=== PATIENT | male | born 1940 | race African-American/Black ===

== ENCOUNTER 2017-03-01 06:30 | Inpatient (IN) | payer OTHER ==
[2017-03-01] VITALS (7 sets, daily range): BP systolic 114–135; BP diastolic 59–76
[~2017-03-01] VITALS: Ht 188 cm; Wt 104.3 kg
[~2017-03-01 06:30] MED LIST: AMLODIPINE BESY10 MG ORAL; AMOXICILLIN500 MG; ASPIRIN81 MG ORAL; ATENOLOL25 MG ORAL; ATORVASTATIN CA10 MG ORAL; FINASTERIDE5 MG; FLONASE1 SPRAYS NASAL; LATANOPROST2.5 ML OP; LISINOPRIL40 MG ORAL; SIMVASTATIN20 MG; TAMSULOSIN HCL0.4 MG
[2017-03-01 07:08] LABS: EOSINOPHILS % (AUTO) 2.8 % (0.0-3.0); LYMPHOCYTES % (AUTO) 36.7 % (20.0-45.0); MEAN CORPUSCULAR HEMOGLOBIN 31.7 PG (27.0-31.0); MEAN CORPUSCULAR HGB CONC 34.3 G/DL (32.0-36.0); MEAN CORPUSCULAR VOLUME 93 FL (80-99); MEAN PLATELET VOLUME 5.1 FL (6.5-10.1); MONOCYTES % (AUTO) 10.9 % (1.0-10.0); NEUTROPHILS % (AUTO) 47.6 % (45.0-75.0); PLATELET COUNT 164 K/UL (150-450); RED BLOOD COUNT 2.75 M/UL (4.70-6.10); RED CELL DISTRIBUTION WIDTH 12.8 % (11.6-14.8); WHITE BLOOD COUNT 3.6 K/UL (4.8-10.8)
[2017-03-01 07:22] LABS: ALANINE AMINOTRANSFERASE 15 U/L (3-41); ALBUMIN/GLOBULIN RATIO 1.4 (1.0-2.7); ANION GAP 10 (5-15); ASPARTATE AMINO TRANSFERASE 52 U/L (5-40); CALCIUM 8.5 mg/dL (8.6-10.2); CARBON DIOXIDE 28 mEQ/L (20-30); CHLORIDE 83 mEQ/L (98-107); CREATININE 1.9 mg/dL (0.7-1.2); HEMOLYSIS 3; LIPASE 47 U/L (< 60); POTASSIUM 5.1 mEQ/L (3.4-4.9); SODIUM 121 mEQ/L (135-145)
[2017-03-01 07:23] LABS: TROPONIN I < 0.30 ng/mL (<=0.30)
[2017-03-01 07:32] LABS: CKMB 7.7 ng/mL (< 6.7)
--- NOTE | 2017-03-01 07:58 | Emergency Room Report ---
History of Present Illness General Chief Complaint: General Complaint Source: Patient Present Illness HPI The patient is a 76-year-old male who presented after increased palpitations. Patient reported having intermittent jumping sensation to the right side of his chest. Patient stated that he had recently been performing increased exercise. Patient had prior history of anemia. He denies any shortness of breath or chest pain at this time. A gradual onset of symptoms were the past 2-3 days. Allergies: Coded Allergies: No Known Allergies (Verified Allergy, Unknown, 01/16/10) Patient History Past Medical History: see triage record Reviewed Nursing Documentation: PMH: Agreed, PSxH: Agreed Nursing Documentation-PMH Hx Hypertension: Yes Review of Systems All Other Systems: negative except mentioned in HPI Physical Exam Vital Signs Date Time Temp Pulse Resp B/P Pulse Ox O2 Delivery O2 Flow Rate FiO2 03/01/17 06:33 97.7 64 16 147/67 100 Room Air Sp02 EP Interpretation: reviewed, normal General Appearance: normal inspection, well appearing, no apparent distress, alert, GCS 15, non-toxic Head: atraumatic ENT: normal ENT inspection, hearing grossly normal, normal voice Neck: normal inspection, full range of motion, supple, no bony tend Respiratory: normal inspection, lungs clear, normal breath sounds, no respiratory distress, no retraction, no wheezing Cardiovascular #1: regular rate, rhythm, no edema Gastrointestinal: normal inspection, normal bowel sounds, non tender, soft, no guarding, no hernia Genitourinary: no CVA tenderness Musculoskeletal: normal inspection, back normal, normal range of motion Neurologic: normal inspection, alert, oriented x3, responsive, steak sauce maker III-XII nml as tested, speech normal Psychiatric: normal inspection, judgement/insight normal, mood/affect normal Skin: normal inspection, normal color, no rash Medical Decision Making Diagnostic Impression: Primary Impression: Hyponatremia Additional Impressions: Hyperkalemia Anemia ER Course Patient presented for palpitations. The differential diagnosis included was not limited to arrhythmia, thyroid storm, sepsis, anemia, myocardial infarction , alcohol withdrawal, stimulant abuse, caffeine overdose among others. Because of complexity of patient's case laboratory testing and imaging studies were ordered. Patient was placed on a residential care facility manager. EKG interpreted by me showed normal sinus rhythm with a rate of [address] or T wave changes. a right bundle-branch block was present. The patient started on IV fluids. Chest x- ray one view interpreted by me showed elevation of the left hemidiaphragm with normal cardiac size normal mediastinum. EKG Diagnostic Results Rate: normal Rhythm: NSR ST Segments: other - rbbb ASA given to the pt in ED: No Rhythm Strip Diag. Results EP Interpretation: yes Rhythm: NSR, no PVC's, no ectopy Chest X-Ray Diagnostic Results Chest X-Ray Ordered: Yes # of Views/Limited/Complete: 1 View Interpretation: no consolidation, no effusion, no pneumothorax, no acute cardiopulmonary disease, other - left hemidiaphragm elevation Indication: Other - palpitations Impression: No acute disease Date Electronically Signed: Mar 01, 2017 Time Electronically Signed: 07:57 Interpreting ER Physician: Mauricio Last Vital Signs Date Time Temp Pulse Resp B/P Pulse Ox O2 Delivery O2 Flow Rate FiO2 03/01/17 07:15 98.0 56 17 116/66 100 Room Air Status: unchanged Disposition: ADMITTED INPATIENT Condition: Serious Referrals: NON PHYSICIAN (PCP) Garret Martínez Mar 01, 2017 07:58
[2017-03-01] MEDS ORDERED: FOLIC ACID1 MG ORAL (08:10)
[2017-03-01] MEDS ORDERED: SIMVASTATIN20 MG ORAL (08:10)
[2017-03-01] MEDS ORDERED: HIGH POTENCY I134 MG PO (08:10)
[2017-03-01] MEDS ORDERED: TAMSULOSIN HCL0.4 MG ORAL (08:10)
[2017-03-01] MEDS ORDERED: NEPHROVITE1 TAB ORAL (08:10)
[2017-03-01] MEDS ORDERED: LATANOPROST2.5 ML BOTH EYES (08:10)
--- NOTE | 2017-03-01 08:44 | Diagnostic Imaging Report ---
Indication: Shortness of breath Technique: XRAY CHEST 1 V Comparison: 03/12/15 Findings: Cardiomediastinal silhouette is stable. There is elevation of the left hemidiaphragm. There is no consolidation or pleural effusion. Osseous structures are stable. Impression: No acute cardiopulmonary disease. Grossly stable elevation of the left hemidiaphragm.
[2017-03-01] MEDS ORDERED: Ketorolac 30mg Inj IV PRN (09:45)
[2017-03-01] MEDS ORDERED: Enalaprilat 2.5mg/2ml Inj IV PRN (09:45)
[2017-03-01] MEDS ORDERED: Morphine Sulfate 2mg/ml Inj IVP PRN (09:45)
[2017-03-01] MEDS ORDERED: Miralax 17gm pkt ORAL PRN (09:45)
[2017-03-01] MEDS ORDERED: Diltiazem 25mg/5ml IV PRN (09:45)
[2017-03-01] MEDS ORDERED: DuoNeb 0.5-3(2.5)mg/3ml neb HHN PRN (09:45)
[2017-03-01] MEDS ORDERED: Nitroglycerin Subl 0.4mg tab (Bottle Of 25) SL PRN (09:45)
[2017-03-01] MEDS: Tamsulosin 0.4mg cap ORAL SCH (10:52)
[2017-03-01] MEDS: Aspirin Baby 81mg ORAL SCH (10:52)
--- NOTE | 2017-03-01 12:39 | History and Physical ---
History of Present Illness General Date patient seen: Mar 01, 2017 Time patient seen: 12:00 Reason for Hospitalization: General Complaint Present Illness HPI 76-year-old male presented after increased palpitations described as intermittent jumping sensation to the right side of his chest. Patient reported these sensations after or during exercise in the gym, not sure if "used more weight that he could handle" Onset of symptoms, gradual over 2-3 days, last exercise Friday this week able to walk few blocks without any SOB, no exertional dyspnea Patient had prior history of anemia. He denies any shortness of breath or chest pain workup in ED revealed: negative troponin, CK -860, ECG NSR no acute ischemic changes creat-1.9, Na -121, K-5.1 D dimer-342 CXR no acute cardiopulmonary disease Allergies: Coded Allergies: No Known Allergies (Verified Allergy, Unknown, 01/16/10) Medication History Scheduled Amlodipine Besylate* (Amlodipine Besylate*), ORAL DAILY, (Reported) Aspirin* (Aspirin*), 81 MG ORAL DAILY Atenolol* (Tenormin*), ORAL DAILY, (Reported) Atorvastatin Calcium* (Lipitor*), ORAL BEDTIME, (Reported) Ferrous Sulfate (High Potency Iron), 325 MG PO DAILY, (Reported) Fluticasone Propionate (Fluticasone Propionate), 2 SPRAYS NASAL BID, (Reported) Folic Acid* (Folic Acid*), 1 MG ORAL DAILY, (Reported) Latanoprost* (Xalatan*), 1 DRP OP BEDTIME, (Reported) Latanoprost* (Xalatan*), 1 DROP BOTH EYES BEDTIME, (Reported) Lisinopril* (Lisinopril*), ORAL DAILY, (Reported) Simvastatin (Zocor), 20 MG ORAL BEDTIME, (Reported) Tamsulosin Hcl (Tamsulosin Hcl*), 0.4 MG ORAL BEDTIME, (Reported) Vitamin B Cmplx/Vit C/Folic AC (Nephro-Todd Tablet), 1 TAB ORAL DAILY, (Reported ) Patient History History Provided By: Patient Healthcare decision maker Resuscitation status Full Code Advanced Directive on File Past Medical/Surgical History Past Medical/Surgical History: (1) Hypercholesteremia (2) BPH (benign prostatic hyperplasia) (3) HTN (hypertension) (4) Anemia (5) TIA (transient ischemic attack) Review of Systems Constitutional: Reports: no symptoms Eye: Reports: no symptoms ENT: Reports: no symptoms Respiratory: Reports: no symptoms Cardiovascular: Reports: see HPI Gastrointestinal: Reports: no symptoms Genitourinary: Reports: other - BPH Musculoskeletal: Reports: no symptoms Skin: Reports: no symptoms Psychiatric: Reports: no symptoms Neurological: Reports: no symptoms Endocrine: Reports: no symptoms Hematologic/Lymphatic: Reports: anemia Physical Exam General Appearance: WD/WN, no apparent distress, alert - A/A/O x 3 AA male Lines, tubes and drains: peripheral HEENT: normocephalic, atraumatic, anicteric, mucous membranes moist, PERRL Neck: non-tender, normal alignment, supple Respiratory/Chest: chest wall non-tender, lungs clear, no respiratory distress , respiratory distress Cardiovascular/Chest: normal rate, regular rhythm, no JVD Abdomen: normal bowel sounds, non tender, soft Genitourinary/Rectal: normal prostate exam Extremities: non-tender, no calf tenderness, normal capillary refill, non- pitting Skin Exam: normal pigmentation, warm/dry, cyanotic Neurologic: 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 normal, no motor/sensory deficits, alert, oriented x 3, responsive Musculoskeletal: normal muscle bulk Last 24 Hour Vital Signs Date Time Temp Pulse Resp B/P Pulse Ox O2 Delivery O2 Flow Rate FiO2 03/01/17 11:26 97.6 53 16 118/70 100 Room Air 03/01/17 10:35 97.8 58 16 135/70 100 Room Air 03/01/17 09:58 98.0 56 15 125/74 100 Room Air 03/01/17 09:30 98.0 55 14 122/67 100 Room Air 03/01/17 07:15 98.0 56 17 116/66 100 Room Air 03/01/17 07:15 56 17 Room Air 03/01/17 07:06 55 16 114/59 100 Room Air 03/01/17 06:33 97.7 64 16 147/67 100 Room Air Laboratory Tests Test 03/01/17 06:50 White Blood Count 3.6 K/UL (4.8-10.8) L Red Blood Count 2.75 M/UL (4.70-6.10) L Hemoglobin 8.7 G/DL (14.2-18.0) L Hematocrit 25.4 % (42.0-52.0) L Mean Corpuscular Volume 93 FL (80-99) Mean Corpuscular Hemoglobin 31.7 PG (27.0-31.0) H Mean Corpuscular Hemoglobin Concent 34.3 G/DL (32.0-36.0) Red Cell Distribution Width 12.8 % (11.6-14.8) Platelet Count 164 K/UL (150-450) Mean Platelet Volume 5.1 FL (6.5-10.1) L Neutrophils (%) (Auto) 47.6 % (45.0-75.0) Lymphocytes (%) (Auto) 36.7 % (20.0-45.0) Monocytes (%) (Auto) 10.9 % (1.0-10.0) H Eosinophils (%) (Auto) 2.8 % (0.0-3.0) Basophils (%) (Auto) 2.0 % (0.0-2.0) D-Dimer 342 ng/mL (<500) Sodium Level 121 mEQ/L (135-145) L Potassium Level 5.1 mEQ/L (3.4-4.9) H Chloride Level 83 mEQ/L (98-107) L Carbon Dioxide Level 28 mEQ/L (20-30) Anion Gap 10 (5-15) Blood Urea Nitrogen 15 mg/dL (7-23) Creatinine 1.9 mg/dL (0.7-1.2) H Estimat Glomerular Filtration Rate mL/min (>60) Glucose Level 95 mg/dL (74-106) Calcium Level 8.5 mg/dL (8.6-10.2) L Total Bilirubin 0.6 mg/dL (0.0-1.2) Aspartate Amino Transf (AST/SGOT) 52 U/L (5-40) H Alanine Aminotransferase (ALT/SGPT) 15 U/L (3-41) Alkaline Phosphatase 35 U/L (40-129) L Total Creatine Kinase 860 U/L (38-174) H Creatine Kinase MB 7.7 ng/mL (< 6.7) H Creatine Kinase MB Relative Index 0.8 Troponin I < 0.30 ng/mL (<=0.30) Total Protein 7.0 g/dL (6.6-8.7) Albumin 4.1 g/dL (3.5-5.2) Globulin 2.9 g/dL Albumin/Globulin Ratio 1.4 (1.0-2.7) Lipase 47 U/L (< 60) Height (Feet): 6 Height (Inches): 2.00 Weight (Pounds): 230 Medications Current Medications Medications (Trade) Dose Ordered Sig/Jose Route PRN Reason Start Time Stop Time Status Last Admin Dose Admin Acetaminophen (Tylenol) 650 mg Q4H PRN ORAL FEVER 03/01/17 09:45 03/31/17 09:44 Albuterol/ Ipratropium (DuoNeb 0.5-3(2.5)mg/3ml) 3 ml Q4H PRN HHN Shortness of Breath 03/01/17 09:45 03/06/17 09:44 Aspirin (ASA) 162 mg DAILY ORAL 03/01/17 11:00 03/31/17 10:59 Atorvastatin Calcium (Lipitor) 10 mg BEDTIME ORAL 03/01/17 21:00 03/31/17 20:59 Diltiazem HCl (Cardizem) 10 mg Q1H PRN IV HR >120 03/01/17 09:45 03/31/17 09:44 Enalaprilat (Vasotec) 2.5 mg Q6H PRN IV sbp more than 160 03/01/17 09:45 03/31/17 09:44 Heparin Sodium (Porcine) (Heparin 5000 units/ml) 5,000 units EVERY 12 HOURS SUBQ 03/01/17 21:00 03/31/17 20:59 Morphine Sulfate (Morphine Sulfate) 2 mg Q4H PRN IVP severe Pain (Pain Scale 7-10) 03/01/17 09:45 03/08/17 09:44 Nitroglycerin (Ntg) 0.4 mg Q5MIN X 3 DOSES PRN SL Prn Chest Pain 03/01/17 09:45 03/31/17 09:44 Ondansetron HCl (Zofran) 4 mg Q6H PRN IVP Nausea & Vomiting 03/01/17 09:45 03/31/17 09:44 Pantoprazole (Protonix) 40 mg DAILY ORAL 03/01/17 11:00 03/31/17 10:59 03/01/17 11:04 Polyethylene Glycol (Miralax) 17 gm DAILYPRN PRN ORAL Constipation 03/01/17 09:45 03/31/17 09:44 Tamsulosin HCl (Flomax) 0.4 mg BEDTIME ORAL 03/01/17 21:00 03/31/17 20:59 Temazepam (Restoril) 15 mg HSPRN PRN ORAL Insomnia 03/01/17 09:45 03/08/17 09:44 Assessment/Plan Assessment/Plan ASSESSMENT palpitations chest pain r/o ACS acute hyponatremia acute renal failure mild rhabdomyolysis anemia BPH Hx of HTN PLAN OF CARE tele serial troponin to r/o acute [facility] cardio eval ECHO continue ASA and statin check lipid panel, TSH pain management with nitrites and Morphine prn DVT, GI prophayxlis hypoNa workup IVF with Na , possibly depletional monitor renal parameters, lytes renal US ARF could be due to dehydration, mild rhabdo vs CKD trend CK anemia workup , stool OB, check CEA monitor HH transfuse prn continue Flomax case discussed and evaluated by supervising physician Jorje (Rip),Mavis FARR Mar 01, 2017 12:39
[2017-03-01 14:44] LABS: APPEARANCE,URINE CLEAR; KETONES,URINE NEGATIVE (NEGATIVE); LEUKOCYTE ESTERASE ,URINE 1+ (NEGATIVE); NITRITE,URINE NEGATIVE (NEGATIVE); PH,URINE 7 (4.5-8.0); PROTEIN,URINE NEGATIVE (NEGATIVE); UROBILINOGEN,URINE NORMAL MG/DL (0.0-1.0)
[2017-03-01 14:58] LABS: RBC,URINE 0-2 /HPF (0 - 0); WBC,URINE 0 /HPF (0 - 0)
[2017-03-01 15:44] LABS: TROPONIN I < 0.30 ng/mL (<=0.30)
[2017-03-01 15:45] LABS: ALANINE AMINOTRANSFERASE 15 U/L (3-41); ALBUMIN/GLOBULIN RATIO 1.6 (1.0-2.7); ANION GAP 10 (5-15); ASPARTATE AMINO TRANSFERASE 52 U/L (5-40); CALCIUM 8.6 mg/dL (8.6-10.2); CARBON DIOXIDE 29 mEQ/L (20-30); CHLORIDE 83 mEQ/L (98-107); CREATININE 1.7 mg/dL (0.7-1.2); HEMOLYSIS 1; MAGNESIUM 1.9 mg/dL (1.7-2.5); PHOSPHORUS 3.1 mg/dL (2.5-4.8); SODIUM 122 mEQ/L (135-145); TOTAL PROTEIN 6.6 g/dL (6.6-8.7); URIC ACID 6.1 mg/dL (3.0-7.5)
--- NOTE | 2017-03-01 16:47 | Consultation ---
Consult Note Consult Note The patient is a 76-year-old male who presented after increased palpitations. Patient reported having intermittent jumping sensation to the right side of his chest. Patient stated that he had recently been performing increased exercise. Patient had prior history of anemia. He denies any shortness of breath or chest pain at this time. A gradual onset of symptoms were the past 2-3 days. Assessment/Plan HypoNatremia HyperKalemia Renal failure , Cr 1.9 BPH Anemia h/o TIA HTN DJD Plan: Saline infusion- Anemia barrios monitor renal parameters- urine studies DENISE ORTIZ Mar 01, 2017 16:47
[2017-03-01] MEDS ORDERED: NS 250 ML IVPB ONE (17:00)
[2017-03-01 17:06] LABS: APPEARANCE,URINE CLEAR; KETONES,URINE NEGATIVE (NEGATIVE); LEUKOCYTE ESTERASE ,URINE NEGATIVE (NEGATIVE); NITRITE,URINE NEGATIVE (NEGATIVE); PH,URINE 7 (4.5-8.0); PROTEIN,URINE NEGATIVE (NEGATIVE); UROBILINOGEN,URINE NORMAL MG/DL (0.0-1.0)
[2017-03-01 17:34] LABS: RBC,URINE 0 /HPF (0 - 0); WBC,URINE 0 /HPF (0 - 0)
[2017-03-01] MEDS: Heparin 5000 units/ml inj SUBQ SCH (20:44)
--- NOTE | 2017-03-01 21:33 | Consultation ---
Consult Note Consult Note Cardiology for Dr. Dick full consult dictated #[id number] VIBHA CASILLAS Mar 01, 2017 21:33
--- NOTE | 2017-03-01 23:15 | Consultation ---
DATE OF CONSULTATION: CARDIOLOGY CONSULT REQUESTING PHYSICIAN: Ishaan Andujar M.D. This is being done as coverage for Dr. Dick. REASON FOR CONSULT: Chest pain. HISTORY OF PRESENT ILLNESS: The patient is a 76-year-old man with a history of hypertension, hyperlipidemia, and anemia, who presents with a two to three day history of right-sided chest pain, which he describes as palpitations or "jumping sensation," which occurred over the past two or three days after he had exercised at the gym including arm exercises earlier this week. He denies shortness of breath, dizziness, lightheadedness, or syncope in the emergency room. His initial troponin was negative and EKG showed no acute ischemic change. He was noted to be in renal failure with a creatinine of 1.9 potassium of 5.1, sodium 121, and anemic with a hemoglobin of 8.7. He was admitted for further treatment. MEDICATIONS: Currently atorvastatin 10 mg at bedtime, Flomax 0.4 mg at bedtime, subcutaneous heparin 5000 units q.12. p.r.n., aspirin 162 mg daily, albuterol and ipratropium nebulizer every 4 hours p.r.n., nitroglycerin sublingual p.r.n., Tylenol p.r.n., and Restoril 15 mg at bedtime as needed. ALLERGIES: No known drug allergies. PAST MEDICAL HISTORY: As noted above, history of anemia. The patient reports having been diagnosed over the past two to three years having a negative gastrointestinal workup. History of BPH and history of hypertension and hyperlipidemia. SOCIAL HISTORY: No tobacco or alcohol abuse. PHYSICAL EXAMINATION: VITAL SIGNS: Blood pressure is 130/76, pulse 58, regular, respirations 18, and afebrile. GENERAL: Alert, well-developed male, in no acute distress. HEENT: Normocephalic and atraumatic. Pupils are equal, round, and reactive to light. Sclerae anicteric. Oral mucosa moist. NECK: Supple. There is no jugular venous distention. No carotid bruits. LUNGS: Clear to auscultation bilaterally. CHEST: No chest wall tenderness. HEART: Regular S1 and S2. No murmurs, rubs, S3, or S4. ABDOMEN: Soft, nontender. No palpable mass. EXTREMITIES: No cyanosis, clubbing, or edema. A 1+ dorsalis pedis pulses bilaterally. EKG shows sinus rhythm, rate of 60 beats per minute, right bundle branch block and axis 100 degrees. Sinus rhythm rate 60 beats per minute, right bundle branch block, and right axis deviation 100 degrees. LABORATORY DATA: Hemoglobin 8.7, white blood count 3600, and platelets 164,000. Potassium 5.0, sodium 122, BUN 13, and creatinine 1.7. Troponin less than 0.3. CK 832. TSH 2.5 and free T4 0.72. ASSESSMENT AND RECOMMENDATIONS: The patient is a 76-year-old man with a history of hypertension and anemia, who was admitted with right-sided "chest jumping and palpitations" over the past few days, which occurred after exercise. He is noted to have multiple metabolic abnormalities including elevated creatinine, low hemoglobin, hyponatremia, and hyperkalemia. His chest pain does not appear to be due to angina based on the EKG and troponin level, it appears of more musculoskeletal etiology. He has undergone an echo as well, which showed diastolic dysfunction, but normal systolic function with ejection fraction 55% to 60% and no significant valve lesions. At this point, I would not favor any further cardiac workup. Evaluation of his metabolic abnormalities, hyponatremia, hyperkalemia, and renal insufficiency will be as per nephrology. Anemia evaluation will also be undertaken. Betsy Rosa M.D. DR: NEL JOB#: [id number] CC:
[2017-03-02] VITALS (7 sets, daily range): BP systolic 107–132; BP diastolic 50–88
[2017-03-02 07:03] LABS: MEAN CORPUSCULAR HEMOGLOBIN 30.7 PG (27.0-31.0); MEAN CORPUSCULAR VOLUME 93 FL (80-99); MEAN PLATELET VOLUME 5.2 FL (6.5-10.1); PLATELET COUNT 165 K/UL (150-450); RED BLOOD COUNT 2.78 M/UL (4.70-6.10); RED CELL DISTRIBUTION WIDTH 12.8 % (11.6-14.8); WHITE BLOOD COUNT 2.9 K/UL (4.8-10.8)
[2017-03-02 07:08] LABS: PROTHROMBIN TIME 10.7 SEC (9.30-11.50)
[2017-03-02 07:50] LABS: TROPONIN I < 0.30 ng/mL (<=0.30)
[2017-03-02 07:54] LABS: MAGNESIUM 1.7 mg/dL (1.7-2.5); PHOSPHORUS 3.2 mg/dL (2.5-4.8); URIC ACID 5.5 mg/dL (3.0-7.5)
[2017-03-02 07:57] LABS: CRP QUANT 0.8 mg/dL (< 0.5); THYROID STIMULATING HORMONE 2.96 uIU/mL (0.300-4.500)
[2017-03-02 08:06] LABS: HEMOGLOBIN A1C 4.9 % (< 6.0)
[2017-03-02 08:11] LABS: ALANINE AMINOTRANSFERASE 13 U/L (3-41); ALBUMIN/GLOBULIN RATIO 1.2 (1.0-2.7); ASPARTATE AMINO TRANSFERASE 45 U/L (5-40); CALCIUM 8.4 mg/dL (8.6-10.2); CARBON DIOXIDE 25 mEQ/L (20-30); CHLORIDE 84 mEQ/L (98-107); CREATININE 1.5 mg/dL (0.7-1.2); SODIUM 120 mEQ/L (135-145); TOTAL PROTEIN 6.7 g/dL (6.6-8.7)
[2017-03-02 08:22] LABS: ANION GAP 11 (5-15); HEMOLYSIS 2
[2017-03-02 08:39] LABS: POTASSIUM 6.1 mEQ/L (3.4-4.9)
[2017-03-02 08:41] LABS: CHOLESTEROL/HDL RATIO 2.7 (3.3-4.4)
[2017-03-02 08:46] LABS: ERYTHROCYTE SEDIMENTATION RATE 23 MM/HR (0-20); PATH BLOOD SMEAR/OMC SENT TO PATHOLOGIST
[2017-03-02] MEDS: Aspirin Baby 81mg ORAL SCH (09:04)
[2017-03-02] MEDS: Heparin 5000 units/ml inj SUBQ SCH ×2 (09:08→20:20)
--- NOTE | 2017-03-02 09:16 | Diagnostic Imaging Report ---
Indication: Acute renal failure and pain Technique: Renal ultrasound Findings: The right kidney measures 12.2 cm in length. The left kidney measures 11.3 cm in length. There is no hydronephrosis. No sonographically evident renal calculi are seen. A right renal cyst measures 2.5 cm. The visualized portions of the inferior vena cava are unremarkable. The bladder is partially distended and grossly unremarkable. Impression: No hydronephrosis. Right renal cyst.
[2017-03-02 09:20] LABS: CORTISOL LC 2.6 ug/dL (.)
[2017-03-02 10:12] LABS: BAND NEUTROPHILS % (MANUAL) 0 % (0-8); BASOPHILS % (MANUAL) 0 % (0-2); EOSINOPHILS % (MANUAL) 3 % (0-3); HYPOCHROMASIA 1+; LYMPHOCYTES % (MANUAL) 40 % (20-45); NEUTROPHILS % (MANUAL) 53 % (45-75); PLATELET ESTIMATE ADEQUATE; PLATELET MORPHOLOGY NORMAL; TOTAL CELLS COUNTED 100
[2017-03-02 10:21] LABS: FREE TRIIODOTHYRONINE 1.5 pg/mL (2.0-4.4)
[2017-03-02 10:45] LABS: RETICULOCYTE COUNT 1.1 % (0.0-2.0)
[2017-03-02 11:03] LABS: ANION GAP 11 (5-15); CALCIUM 8.6 mg/dL (8.6-10.2); CARBON DIOXIDE 27 mEQ/L (20-30); CHLORIDE 82 mEQ/L (98-107); CREATININE 1.4 mg/dL (0.7-1.2); HEMOLYSIS 1; POTASSIUM 4.8 mEQ/L (3.4-4.9); SODIUM 120 mEQ/L (135-145)
--- NOTE | 2017-03-02 11:08 | Pulmonology Progress Note ---
Assessment/Plan Assessment/Plan ASSESSMENT palpitations chest pain likely of musculoskeletal origin r/o ACS acute hyponatremia possibly SIADH acute renal failure-improving mild rhabdomyolysis anemia BPH Hx of HTN PLAN OF CARE tele serial troponin to r/o acute [place] cardio eval appreciated per cardio chest pain likely of musculoskeletal origin ECHO with preserved EF 55-60% and RVSP of 27, evidence of diastolic dysfunction continue ASA and statin lipid panel stable , TSH-WNL but low free T4 and T3 pain management with nitrites and Morphine prn DVT, GI prophayxlis Na worse, possible SIADH, not improved with IV hydration dc IVF fluid restriction check serum and urine osmolality monitor renal parameters, creat trending down, monitor lytes and correct further abnormalities, repeated stat BMP to exclude hemolysis of the specimen, revealed K-4.8 and Na -120 renal US no hydro, normal echogenicity ARF could be due to dehydration, mild rhabdo vs CKD trend CK, small downtrend to 650 anemia workup with low iron, CEA WNL, Venofer x 1 check stool OB, monitor HH transfuse prn continue Flomax case discussed and evaluated by supervising physician Subjective Allergies: Coded Allergies: No Known Allergies (Verified Allergy, Unknown, 01/16/10) Subjective denies chest pain, SOB K-6. 9, repeated K-4.8 Na down to 120 Objective Last 24 Hour Vital Signs Date Time Temp Pulse Resp B/P Pulse Ox O2 Delivery O2 Flow Rate FiO2 03/02/17 08:22 97.0 61 18 117/61 96 Room Air 03/02/17 08:00 53 03/02/17 07:50 56 16 Room Air 03/02/17 04:00 97.2 60 20 116/64 99 Room Air 03/02/17 04:00 55 03/02/17 00:00 97.7 62 20 130/88 96 Room Air 03/02/17 00:00 51 03/01/17 20:00 55 03/01/17 20:00 97.0 60 20 122/73 98 Room Air 03/01/17 19:43 55 16 Room Air 03/01/17 16:00 58 18 130/76 97 Room Air 03/01/17 15:13 66 03/01/17 11:50 55 03/01/17 11:26 97.6 53 16 118/70 100 Room Air Intake and Output 03/01/17 03/02/17 19:00 07:00 Intake Total 225 ml 835 ml Balance 225 ml 835 ml Intake Oral 0 ml IV Total 225 ml 835 ml # Voids 3 Objective General Appearance: WD/WN, no apparent distress, alert - A/A/O x 3 AA male Lines, tubes and drains: peripheral HEENT: normocephalic, atraumatic, anicteric, mucous membranes moist, PERRL Neck: non-tender, normal alignment, supple Respiratory/Chest: chest wall non-tender, lungs clear, no respiratory distress , respiratory distress Cardiovascular/Chest: normal rate, regular rhythm, no JVD Abdomen: normal bowel sounds, non tender, soft Genitourinary/Rectal: normal prostate exam Extremities: non-tender, no calf tenderness, normal capillary refill, non- pitting Skin Exam: normal pigmentation, warm/dry, cyanotic 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, no motor/sensory deficits, alert, oriented x 3, responsive Musculoskeletal: normal muscle bulk Laboratory Tests 03/01/17 14:27: Urine Color Pale yellow, Urine Appearance Clear, Urine pH 7, Urine Specific Sacul 1.005, Urine Protein Negative, Urine Glucose (UA) Negative, Urine Ketones Negative, Urine Occult Blood Negative, Urine Nitrite Negative, Urine Bilirubin Negative, Urine Urobilinogen Normal, Urine Leukocyte Esterase Negative , Urine RBC 0, Urine WBC 0, Urine Squamous Epithelial Cells None, Urine Bacteria None, Urine Eosinophils None seen, Urine Osmolality [Pending], Urine Random Sodium [Pending], Urine Random Chloride 74, Urine Potassium Timed 26 03/01/17 15:05: Sodium Level 122L, Potassium Level 5.0H, Chloride Level 83L, Carbon Dioxide Level 29, Anion Gap 10, Blood Urea Nitrogen 13, Creatinine 1.7H, Estimat Glomerular Filtration Rate , Glucose Level 75, Plasma/Serum Osmolality [Pending] , Uric Acid 6.1, Calcium Level 8.6, Phosphorus Level 3.1, Magnesium Level 1.9, Total Bilirubin 0.5, Aspartate Amino Transf (AST/SGOT) 52H, Alanine Aminotransferase (ALT/SGPT) 15, Alkaline Phosphatase 36L, Total Creatine Kinase 832H, Troponin I < 0.30, Total Protein 6.6, Albumin 4.1, Globulin 2.5, Albumin/ Globulin Ratio 1.6, Thyroid Stimulating Hormone (TSH) 2.550, Free Thyroxine 0.72L, Free Triiodothyronine 1.5L, Cortisol 2.6 03/02/17 05:40: Sodium Level 120L, Potassium Level 6.1*H, Chloride Level 84L, Carbon Dioxide Level 25, Anion Gap 11, Blood Urea Nitrogen 11, Creatinine 1.5H, Estimat Glomerular Filtration Rate , Glucose Level 80, Uric Acid 5.5, Calcium Level 8.4L , Phosphorus Level 3.2, Magnesium Level 1.7, Total Bilirubin 0.5, Aspartate Amino Transf (AST/SGOT) 45H, Alanine Aminotransferase (ALT/SGPT) 13, Alkaline Phosphatase 34L, Total Creatine Kinase 650H, Troponin I < 0.30, Total Protein 6.7, Albumin 3.7, Globulin 3.0, Albumin/Globulin Ratio 1.2, Thyroid Stimulating Hormone (TSH) 2.960, White Blood Count 2.9L, Red Blood Count 2.78L, Hemoglobin 8.5L, Hematocrit 25.9L, Mean Corpuscular Volume 93, Mean Corpuscular Hemoglobin 30.7, Mean Corpuscular Hemoglobin Concent 33.0, Red Cell Distribution Width 12.8 , Platelet Count 165, Mean Platelet Volume 5.2L, Neutrophils (%) (Auto) , Lymphocytes (%) (Auto) , Monocytes (%) (Auto) , Eosinophils (%) (Auto) , Basophils (%) (Auto) , Differential Total Cells Counted 100, Neutrophils % ( Manual) 53, Lymphocytes % (Manual) 40, Monocytes % (Manual) 4, Eosinophils % ( Manual) 3, Basophils % (Manual) 0, Band Neutrophils 0, Platelet Estimate Adequate, Platelet Morphology Normal, Hypochromasia 1+, Erythrocyte Sedimentation Rate 23H, Reticulocyte Count 1.1, Prothrombin Time 10.7, Prothromb Time International Ratio 1.0, Activated Partial Thromboplast Time 33, Hemoglobin A1c 4.9, Iron Level 55L, Total Iron Binding Capacity 195L, Percent Iron Saturation 28, Unsaturated Iron Binding 140, Lactate Dehydrogenase 181, C- Reactive Protein, Quantitative 0.8H, Pro-B-Type Natriuretic Peptide 92, Triglycerides Level 69, Cholesterol Level 126, LDL Cholesterol 65, HDL Cholesterol 47, Cholesterol/HDL Ratio 2.7L, Carcinoembryonic Antigen 2.0, Vitamin B12 Level 737, Folate [Pending] 03/02/17 10:30: Sodium Level [Pending], Potassium Level [Pending], Chloride Level [Pending], Carbon Dioxide Level [Pending], Blood Urea Nitrogen [Pending], Creatinine [ Pending], Estimat Glomerular Filtration Rate [Pending], Glucose Level [Pending] , Calcium Level [Pending] Current Medications Medications (Trade) Dose Ordered Sig/Jose Route PRN Reason Start Time Stop Time Status Last Admin Dose Admin Acetaminophen (Tylenol) 650 mg Q4H PRN ORAL FEVER 03/01/17 09:45 03/31/17 09:44 Albuterol/ Ipratropium (DuoNeb 0.5-3(2.5)mg/3ml) 3 ml Q4H PRN HHN Shortness of Breath 03/01/17 09:45 03/06/17 09:44 Aspirin (ASA) 162 mg DAILY ORAL 03/01/17 11:00 03/31/17 10:59 03/02/17 09:04 Atorvastatin Calcium (Lipitor) 10 mg BEDTIME ORAL 03/01/17 21:00 03/31/17 20:59 Diltiazem HCl (Cardizem) 10 mg Q1H PRN IV HR >120 03/01/17 09:45 03/31/17 09:44 Heparin Sodium (Porcine) (Heparin 5000 units/ml) 5,000 units EVERY 12 HOURS SUBQ 03/01/17 21:00 03/31/17 20:59 03/02/17 09:08 Morphine Sulfate (Morphine Sulfate) 2 mg Q4H PRN IVP severe Pain (Pain Scale 7-10) 03/01/17 09:45 03/08/17 09:44 Nitroglycerin (Ntg) 0.4 mg Q5MIN X 3 DOSES PRN SL Prn Chest Pain 03/01/17 09:45 03/31/17 09:44 Ondansetron HCl (Zofran) 4 mg Q6H PRN IVP Nausea & Vomiting 03/01/17 09:45 03/31/17 09:44 Pantoprazole (Protonix) 40 mg BID ORAL 03/01/17 18:00 03/31/17 17:59 03/02/17 09:05 Polyethylene Glycol (Miralax) 17 gm DAILYPRN PRN ORAL Constipation 03/01/17 09:45 03/31/17 09:44 Tamsulosin HCl (Flomax) 0.4 mg BEDTIME ORAL 03/01/17 21:00 03/31/17 20:59 Temazepam (Restoril) 15 mg HSPRN PRN ORAL Insomnia 03/01/17 09:45 03/08/17 09:44 Jorje ([facility])Mavis NP Mar 02, 2017 11:08
[2017-03-02] MEDS ORDERED: NS 275ml ONE (11:28)
[2017-03-02] MEDS ORDERED: Iron Sucrose 100 MG in NS 55 ML IVPB ONE (13:00)
--- NOTE | 2017-03-02 17:27 | Cardiology Report ---
APPROVED REPORT EXAM: Two-dimensional and M-mode echocardiogram with Doppler and color Doppler. INDICATION Left ventricular function M-Mode DIMENSIONS IVSd0.9 (0.7-1.1cm)Left Atrium (MM)4.1 (1.6-4.0cm) LVDd4.5 (3.5-5.6cm)Aortic Root3.0 (2.0-3.7cm) PWd0.9 (0.7-1.1cm)Aortic Cusp Exc.1.8 (1.5-2.0cm) LVDs3.4 (2.5-4.0cm) PWs1.3 cm Technically difficult study due to poor acoustic windows. Normal left ventricular chamber size, systolic function and wall motion. Left ventricular ejection fraction estimated to be 55-60 %. No evidence of left ventricular hypertrophy. No evidence of pericardial fat or effusion. Mild bi-atrial enlargement by 2D. Focal aortic valve sclerosis with adequate cusp excursion Thickened mitral valve leaflets with normal excursion. Mitral annulus and aortic root calcification. Pulmonic valve not well visualized. Normal tricuspid valve structure. IVC is normal in size with physiologic collapse. A color flow and spectral Doppler study was performed and revealed: No aortic regurgitation. No mitral regurgitation. Left ventricular diastolic dysfunction grade 1. Mild tricuspid regurgitation. Tricuspid systolic velocities suggests peak right ventricular systolic pressure of 27 mmHg Pulmonic regurgitation present.
--- NOTE | 2017-03-02 17:58 | Cardiology Progress Note ---
Assessment/Plan Problem List: (1) Chest pain (2) Hyperkalemia (3) Hyponatremia (4) Anemia (5) Hypercholesteremia (6) HTN (hypertension) Status: stable, progressing Status Narrative Pt w/atypical chest pain - has ruled out for myocardial infarction and has ECHO w/ nl wall motion Hyperlipidemia Hyponatremia - ? SIADH CKD anemia, leukopenia and borderline plts Assessment/Plan Can dc telemetry. Pt can be dc d from cardiac standpoint. Continue statin for hyperlipidemia Workup of hyponatremia - ? SIADH per nephrology Consider hematology evaluation for anemia and low WBC Subjective ROS Limited/Unobtainable: No Subjective No c/o Objective Last 24 Hour Vital Signs Date Time Temp Pulse Resp B/P Pulse Ox O2 Delivery O2 Flow Rate FiO2 03/02/17 15:41 97.2 53 18 113/66 96 Room Air 03/02/17 12:00 71 03/02/17 11:41 97.2 56 18 132/70 97 Room Air 03/02/17 08:22 97.0 61 18 117/61 96 Room Air 03/02/17 08:00 53 03/02/17 07:50 56 16 Room Air 03/02/17 04:00 97.2 60 20 116/64 99 Room Air 03/02/17 04:00 55 03/02/17 00:00 97.7 62 20 130/88 96 Room Air 03/02/17 00:00 51 03/01/17 20:00 55 03/01/17 20:00 97.0 60 20 122/73 98 Room Air 03/01/17 19:43 55 16 Room Air General Appearance: WD/WN, no apparent distress, alert EENT: PERRL/EOMI Neck: no JVD Rhythm: NSR Cardiovascular: normal rate, regular rhythm, no gallop/murmur Respiratory/Chest: lungs clear Abdomen: normal bowel sounds, non tender, soft Extremities: normal range of motion Intake and Output 03/01/17 03/02/17 19:00 07:00 Intake Total 225 ml 835 ml Balance 225 ml 835 ml Intake Oral 0 ml IV Total 225 ml 835 ml # Voids 3 Laboratory Tests Test 03/02/17 05:40 03/02/17 10:30 White Blood Count 2.9 K/UL (4.8-10.8) L Red Blood Count 2.78 M/UL (4.70-6.10) L Hemoglobin 8.5 G/DL (14.2-18.0) L Hematocrit 25.9 % (42.0-52.0) L Mean Corpuscular Volume 93 FL (80-99) Mean Corpuscular Hemoglobin 30.7 PG (27.0-31.0) Mean Corpuscular Hemoglobin Concent 33.0 G/DL (32.0-36.0) Red Cell Distribution Width 12.8 % (11.6-14.8) Platelet Count 165 K/UL (150-450) Mean Platelet Volume 5.2 FL (6.5-10.1) L Neutrophils (%) (Auto) % (45.0-75.0) Lymphocytes (%) (Auto) % (20.0-45.0) Monocytes (%) (Auto) % (1.0-10.0) Eosinophils (%) (Auto) % (0.0-3.0) Basophils (%) (Auto) % (0.0-2.0) Differential Total Cells Counted 100 Neutrophils % (Manual) 53 % (45-75) Lymphocytes % (Manual) 40 % (20-45) Monocytes % (Manual) 4 % (1-10) Eosinophils % (Manual) 3 % (0-3) Basophils % (Manual) 0 % (0-2) Band Neutrophils 0 % (0-8) Platelet Estimate Adequate Platelet Morphology Normal Hypochromasia 1+ Erythrocyte Sedimentation Rate 23 MM/HR (0-20) H Reticulocyte Count 1.1 % (0.0-2.0) Prothrombin Time 10.7 SEC (9.30-11.50) Prothromb Time International Ratio 1.0 (0.9-1.1) Activated Partial Thromboplast Time 33 SEC (23-33) Sodium Level 120 mEQ/L (135-145) L 120 mEQ/L (135-145) L Potassium Level 6.1 mEQ/L (3.4-4.9) *H 4.8 mEQ/L (3.4-4.9) Chloride Level 84 mEQ/L (98-107) L 82 mEQ/L (98-107) L Carbon Dioxide Level 25 mEQ/L (20-30) 27 mEQ/L (20-30) Anion Gap 11 (5-15) 11 (5-15) Blood Urea Nitrogen 11 mg/dL (7-23) 11 mg/dL (7-23) Creatinine 1.5 mg/dL (0.7-1.2) H 1.4 mg/dL (0.7-1.2) H Estimat Glomerular Filtration Rate mL/min (>60) mL/min (>60) Glucose Level 80 mg/dL (74-106) 91 mg/dL (74-106) Hemoglobin A1c 4.9 % (< 6.0) Plasma/Serum Osmolality Pending Uric Acid 5.5 mg/dL (3.0-7.5) Calcium Level 8.4 mg/dL (8.6-10.2) L 8.6 mg/dL (8.6-10.2) Phosphorus Level 3.2 mg/dL (2.5-4.8) Magnesium Level 1.7 mg/dL (1.7-2.5) Iron Level 55 ug/dL (59-158) L Total Iron Binding Capacity 195 ug/dL (250-400) L Percent Iron Saturation 28 % (15-50) Unsaturated Iron Binding 140 ug/dL (112-346) Total Bilirubin 0.5 mg/dL (0.0-1.2) Aspartate Amino Transf (AST/SGOT) 45 U/L (5-40) H Alanine Aminotransferase (ALT/SGPT) 13 U/L (3-41) Alkaline Phosphatase 34 U/L (40-129) L Lactate Dehydrogenase 181 U/L (135-225) Total Creatine Kinase 650 U/L (38-174) H Troponin I < 0.30 ng/mL (<=0.30) C-Reactive Protein, Quantitative 0.8 mg/dL (< 0.5) H Pro-B-Type Natriuretic Peptide 92 pg/mL (0-450) Total Protein 6.7 g/dL (6.6-8.7) Albumin 3.7 g/dL (3.5-5.2) Globulin 3.0 g/dL Albumin/Globulin Ratio 1.2 (1.0-2.7) Triglycerides Level 69 MG/DL (41-150) Cholesterol Level 126 mg/dL (< 200) LDL Cholesterol 65 mg/dL (60-99) HDL Cholesterol 47 mg/dL (40-89) Cholesterol/HDL Ratio 2.7 (3.3-4.4) L Carcinoembryonic Antigen 2.0 ng/mL Vitamin B12 Level 737 pg/mL (211-946) Folate Pending Thyroid Stimulating Hormone (TSH) 2.960 uIU/mL (0.300-4.500) VIBHA CASILLAS Mar 02, 2017 17:58
[2017-03-02] MEDS: Tamsulosin 0.4mg cap ORAL SCH (20:19)
--- NOTE | 2017-03-02 21:09 | General Progress Note ---
Assessment/Plan Status: unchanged Assessment/Plan status: HypoNatremia- persists HyperKalemia- resolved Renal failure , Cr 1.9 - Cr lower BPH Anemia h/o TIA HTN DJD Plan: Saline infusion- Anemia barrios monitor renal parameters- urine studies : STILL PENDING ??? Subjective ROS Limited/Unobtainable: No Constitutional: Reports: malaise, weakness Allergies: Coded Allergies: No Known Allergies (Verified Allergy, Unknown, 01/16/10) Objective Last 24 Hour Vital Signs Date Time Temp Pulse Resp B/P Pulse Ox O2 Delivery O2 Flow Rate FiO2 03/02/17 19:58 97.9 61 20 114/69 98 Room Air 03/02/17 19:32 58 16 Room Air 03/02/17 16:00 54 03/02/17 15:41 97.2 53 18 113/66 96 Room Air 03/02/17 12:00 71 03/02/17 11:41 97.2 56 18 132/70 97 Room Air 03/02/17 08:22 97.0 61 18 117/61 96 Room Air 03/02/17 08:00 53 03/02/17 07:50 56 16 Room Air 03/02/17 04:00 97.2 60 20 116/64 99 Room Air 03/02/17 04:00 55 03/02/17 00:00 97.7 62 20 130/88 96 Room Air 03/02/17 00:00 51 Intake and Output 03/01/17 03/02/17 19:00 07:00 Intake Total 225 ml 835 ml Balance 225 ml 835 ml Intake Oral 0 ml IV Total 225 ml 835 ml # Voids 3 Laboratory Tests 03/02/17 05:40: White Blood Count 2.9L, Red Blood Count 2.78L, Hemoglobin 8.5L, Hematocrit 25.9L , Mean Corpuscular Volume 93, Mean Corpuscular Hemoglobin 30.7, Mean Corpuscular Hemoglobin Concent 33.0, Red Cell Distribution Width 12.8, Platelet Count 165, Mean Platelet Volume 5.2L, Neutrophils (%) (Auto) , Lymphocytes (%) ( Auto) , Monocytes (%) (Auto) , Eosinophils (%) (Auto) , Basophils (%) (Auto) , Differential Total Cells Counted 100, Neutrophils % (Manual) 53, Lymphocytes % ( Manual) 40, Monocytes % (Manual) 4, Eosinophils % (Manual) 3, Basophils % ( Manual) 0, Band Neutrophils 0, Platelet Estimate Adequate, Platelet Morphology Normal, Hypochromasia 1+, Erythrocyte Sedimentation Rate 23H, Reticulocyte Count 1.1, Prothrombin Time 10.7, Prothromb Time International Ratio 1.0, Activated Partial Thromboplast Time 33, Sodium Level 120L, Potassium Level 6.1*H , Chloride Level 84L, Carbon Dioxide Level 25, Anion Gap 11, Blood Urea Nitrogen 11, Creatinine 1.5H, Estimat Glomerular Filtration Rate , Glucose Level 80, Hemoglobin A1c 4.9, Plasma/Serum Osmolality [Pending], Uric Acid 5.5, Calcium Level 8.4L, Phosphorus Level 3.2, Magnesium Level 1.7, Iron Level 55L, Total Iron Binding Capacity 195L, Percent Iron Saturation 28, Unsaturated Iron Binding 140, Total Bilirubin 0.5, Aspartate Amino Transf (AST/SGOT) 45H, Alanine Aminotransferase (ALT/SGPT) 13, Alkaline Phosphatase 34L, Lactate Dehydrogenase 181, Total Creatine Kinase 650H, Troponin I < 0.30, C-Reactive Protein, Quantitative 0.8H, Pro-B-Type Natriuretic Peptide 92, Total Protein 6.7 , Albumin 3.7, Globulin 3.0, Albumin/Globulin Ratio 1.2, Triglycerides Level 69 , Cholesterol Level 126, LDL Cholesterol 65, HDL Cholesterol 47, Cholesterol/ HDL Ratio 2.7L, Carcinoembryonic Antigen 2.0, Vitamin B12 Level 737, Folate [ Pending], Thyroid Stimulating Hormone (TSH) 2.960 03/02/17 10:30: Sodium Level 120L, Potassium Level 4.8, Chloride Level 82L, Carbon Dioxide Level 27, Anion Gap 11, Blood Urea Nitrogen 11, Creatinine 1.4H, Estimat Glomerular Filtration Rate , Glucose Level 91, Calcium Level 8.6 03/02/17 18:02: Urine Osmolality [Pending] Height (Feet): 6 Height (Inches): 2.00 Weight (Pounds): 230 General Appearance: no apparent distress Objective no signs of CHF DENISE ORTIZ Mar 02, 2017 21:09
[2017-03-02] MEDS ORDERED: NaCl 3% 500ml 500 ML IV ONE (21:30)
[2017-03-03 04:10] VITALS: BP 115/66
[2017-03-03 08:00] VITALS: BP 110/67
[2017-03-03 08:55] LABS: MEAN CORPUSCULAR HEMOGLOBIN 30.1 PG (27.0-31.0); MEAN CORPUSCULAR HGB CONC 32.1 G/DL (32.0-36.0); MEAN CORPUSCULAR VOLUME 94 FL (80-99); MEAN PLATELET VOLUME 5.4 FL (6.5-10.1); PLATELET COUNT 162 K/UL (150-450); RED BLOOD COUNT 3.03 M/UL (4.70-6.10)
[2017-03-03] MEDS: Aspirin Baby 81mg ORAL SCH (09:15)
[2017-03-03 09:18] LABS: CRP QUANT 0.7 mg/dL (< 0.5); MAGNESIUM 1.6 mg/dL (1.7-2.5); PHOSPHORUS 2.5 mg/dL (2.5-4.8); URIC ACID 4.6 mg/dL (3.0-7.5)
[2017-03-03 09:19] LABS: ALANINE AMINOTRANSFERASE 12 U/L (3-41); ALBUMIN/GLOBULIN RATIO 1.2 (1.0-2.7); ANION GAP 12 (5-15); ASPARTATE AMINO TRANSFERASE 41 U/L (5-40); CALCIUM 8.3 mg/dL (8.6-10.2); CARBON DIOXIDE 23 mEQ/L (20-30); CHLORIDE 85 mEQ/L (98-107); CREATININE 1.5 mg/dL (0.7-1.2); HEMOLYSIS 9; POTASSIUM 5.4 mEQ/L (3.4-4.9); SODIUM 120 mEQ/L (135-145); TOTAL PROTEIN 6.7 g/dL (6.6-8.7)
[2017-03-03] MEDS: Heparin 5000 units/ml inj SUBQ SCH ×2 (09:21→21:06)
[2017-03-03 09:22] LABS: TROPONIN I < 0.30 ng/mL (<=0.30)
[2017-03-03 10:03] LABS: BAND NEUTROPHILS % (MANUAL) 0 % (0-8); BASOPHILS % (MANUAL) 0 % (0-2); EOSINOPHILS % (MANUAL) 7 % (0-3); HYPOCHROMASIA 1+; LYMPHOCYTES % (MANUAL) 45 % (20-45); NEUTROPHILS % (MANUAL) 41 % (45-75); PLATELET ESTIMATE ADEQUATE; PLATELET MORPHOLOGY NORMAL; TOTAL CELLS COUNTED 100
[2017-03-03] MEDS ORDERED: Tubing IV Secondary IV ONE (10:32)
--- NOTE | 2017-03-03 11:28 | General Progress Note ---
Assessment/Plan Status: unchanged Assessment/Plan status: HypoNatremia- persists , doubt SIADH as patient also has renal insufficiency- HyperKalemia- Renal failure , Cr 1.9 - Cr lower BPH Anemia, etiology?? h/o TIA HTN DJD Plan: Saline infusion- Anemia barrios monitor renal parameters- urine studies : STILL PENDING ??? Subjective ROS Limited/Unobtainable: No Constitutional: Reports: malaise, weakness Allergies: Coded Allergies: No Known Allergies (Verified Allergy, Unknown, 01/16/10) Objective Last 24 Hour Vital Signs Date Time Temp Pulse Resp B/P Pulse Ox O2 Delivery O2 Flow Rate FiO2 03/03/17 09:00 61 03/03/17 08:27 89 18 Room Air 03/03/17 08:00 97.3 57 18 110/67 98 Room Air 03/03/17 04:10 97.5 55 18 115/66 98 Room Air 03/03/17 04:00 55 03/03/17 00:00 56 03/02/17 23:48 97.9 68 20 107/50 99 Room Air 03/02/17 20:00 55 03/02/17 19:58 97.9 61 20 114/69 98 Room Air 03/02/17 19:32 58 16 Room Air 03/02/17 16:00 54 03/02/17 15:41 97.2 53 18 113/66 96 Room Air 03/02/17 12:00 71 03/02/17 11:41 97.2 56 18 132/70 97 Room Air Intake and Output 03/02/17 03/03/17 19:00 07:00 Intake Total 540 ml 236 ml Output Total 300 ml Balance 540 ml -64 ml Intake Oral 240 ml IV Total 300 ml 236 ml Output Urine Total 300 ml # Voids 3 4 Laboratory Tests 03/02/17 18:02: Urine Osmolality [Pending] 03/03/17 08:30: White Blood Count 3.0L, Red Blood Count 3.03L, Hemoglobin 9.1L, Hematocrit 28.3L , Mean Corpuscular Volume 94, Mean Corpuscular Hemoglobin 30.1, Mean Corpuscular Hemoglobin Concent 32.1, Red Cell Distribution Width 13.0, Platelet Count 162, Mean Platelet Volume 5.4L, Neutrophils (%) (Auto) , Lymphocytes (%) ( Auto) , Monocytes (%) (Auto) , Eosinophils (%) (Auto) , Basophils (%) (Auto) , Differential Total Cells Counted 100, Neutrophils % (Manual) 41L, Lymphocytes % (Manual) 45, Monocytes % (Manual) 7, Eosinophils % (Manual) 7H, Basophils % ( Manual) 0, Band Neutrophils 0, Platelet Estimate Adequate, Platelet Morphology Normal, Hypochromasia 1+, Sodium Level 120L, Potassium Level 5.4H, Chloride Level 85L, Carbon Dioxide Level 23, Anion Gap 12, Blood Urea Nitrogen 8, Creatinine 1.5H, Estimat Glomerular Filtration Rate , Glucose Level 94, Uric Acid 4.6, Calcium Level 8.3L, Phosphorus Level 2.5, Magnesium Level 1.6L, Ferritin 819H, Total Bilirubin 0.5, Aspartate Amino Transf (AST/SGOT) 41H, Alanine Aminotransferase (ALT/SGPT) 12, Alkaline Phosphatase 35L, Troponin I < 0.30, C-Reactive Protein, Quantitative 0.7H, Pro-B-Type Natriuretic Peptide 70, Total Protein 6.7, Albumin 3.7, Globulin 3.0, Albumin/Globulin Ratio 1.2 03/03/17 10:20: Urine Osmolality [Pending], Urine Random Sodium 141 Height (Feet): 6 Height (Inches): 2.00 Weight (Pounds): 230 Objective no signs of CHF DENISE ORTIZ Mar 03, 2017 11:28
[2017-03-03 12:00] VITALS: BP 111/59
--- NOTE | 2017-03-03 12:36 | Diagnostic Imaging Report ---
Indications: COUGH Technique: Portable AP chest Findings: Comparison: 03/01/17 Elevation of left hemidiaphragm persists with overlying left lung base linear density, unchanged. Right lung remains clear and normally inflated. Cardiac silhouette remains partially obscured. Pulmonary vasculature remains within normal limits. No pleural abnormalities demonstrated. IMPRESSION: Stable left lung base volume loss and subsegmental atelectasis versus scarring No new abnormality
[2017-03-03] MEDS ORDERED: NaCl 3% 500ml 500 ML IV ONE (14:30)
[2017-03-03 15:30] VITALS: BP 122/64
[2017-03-03 20:00] VITALS: BP 98/49
[2017-03-03] MEDS: Tamsulosin 0.4mg cap ORAL SCH (21:06)
[2017-03-03 23:30] LABS: APPEARANCE,URINE CLEAR; KETONES,URINE NEGATIVE (NEGATIVE); LEUKOCYTE ESTERASE ,URINE NEGATIVE (NEGATIVE); NITRITE,URINE NEGATIVE (NEGATIVE); PH,URINE 7 (4.5-8.0); PROTEIN,URINE NEGATIVE (NEGATIVE); UROBILINOGEN,URINE NORMAL MG/DL (0.0-1.0)
[2017-03-03 23:44] LABS: RBC,URINE 0-2 /HPF (0 - 0); WBC,URINE 0 /HPF (0 - 0)
[2017-03-04] VITALS: BP 102/51
[2017-03-04 04:31] VITALS: BP 114/67
[2017-03-04 06:45] VITALS: BP 126/74
[2017-03-04] MEDS ORDERED: Nitroglycerin Subl 0.4mg tab (Bottle Of 25) SL PRN (07:00)
[2017-03-04] MEDS ORDERED: Diltiazem 25mg/5ml IV PRN (07:45)
[2017-03-04 08:32] VITALS: BP 123/76
[2017-03-04] MEDS: Heparin 5000 units/ml inj SUBQ SCH ×2 (08:32→21:52)
[2017-03-04] MEDS: Aspirin Baby 81mg ORAL SCH (08:33)
[2017-03-04] MEDS ORDERED: DuoNeb 0.5-3(2.5)mg/3ml neb HHN PRN (09:45)
[2017-03-04] MEDS ORDERED: Morphine Sulfate 2mg/ml Inj IVP PRN (09:45)
[2017-03-04] MEDS ORDERED: Miralax 17gm pkt ORAL PRN (09:45)
[2017-03-04 10:06] LABS: ALANINE AMINOTRANSFERASE 11 U/L (3-41); ALBUMIN/GLOBULIN RATIO 1.2 (1.0-2.7); ANION GAP 9 (5-15); ASPARTATE AMINO TRANSFERASE 35 U/L (5-40); CALCIUM 8.3 mg/dL (8.6-10.2); CARBON DIOXIDE 27 mEQ/L (20-30); CHLORIDE 90 mEQ/L (98-107); CREATININE 1.5 mg/dL (0.7-1.2); HEMOLYSIS 2; MAGNESIUM 1.5 mg/dL (1.7-2.5); MEAN CORPUSCULAR HEMOGLOBIN 30.6 PG (27.0-31.0); MEAN CORPUSCULAR HGB CONC 32.8 G/DL (32.0-36.0); MEAN CORPUSCULAR VOLUME 93 FL (80-99); MEAN PLATELET VOLUME 5.3 FL (6.5-10.1); PHOSPHORUS 2.4 mg/dL (2.5-4.8); PLATELET COUNT 168 K/UL (150-450); POTASSIUM 5.4 mEQ/L (3.4-4.9); RED BLOOD COUNT 2.81 M/UL (4.70-6.10); RED CELL DISTRIBUTION WIDTH 12.9 % (11.6-14.8); SODIUM 126 mEQ/L (135-145); TOTAL PROTEIN 6.4 g/dL (6.6-8.7); URIC ACID 4.4 mg/dL (3.0-7.5); WHITE BLOOD COUNT 3.2 K/UL (4.8-10.8)
[2017-03-04 10:28] LABS: BAND NEUTROPHILS % (MANUAL) 0 % (0-8); BASOPHILS % (MANUAL) 0 % (0-2); EOSINOPHILS % (MANUAL) 2 % (0-3); HYPOCHROMASIA 1+; LYMPHOCYTES % (MANUAL) 29 % (20-45); NEUTROPHILS % (MANUAL) 57 % (45-75); PLATELET ESTIMATE ADEQUATE; PLATELET MORPHOLOGY NORMAL; TOTAL CELLS COUNTED 100
--- NOTE | 2017-03-04 10:53 | General Progress Note ---
Assessment/Plan Status: stable Status Narrative Na higher Assessment/Plan status: HypoNatremia- persists , doubt SIADH as patient also has renal insufficiency- Low AM Cortisol level HyperKalemia- Renal failure , Cr 1.9 - Cr lower BPH Anemia, etiology?? h/o TIA HTN DJD Plan: 3 doses IV hydrocortison Mag and Phos supplement Saline infusion- Anemia barrios monitor renal parameters- urine studies : STILL PENDING ???( osmolality) Subjective ROS Limited/Unobtainable: No Constitutional: Reports: malaise Allergies: Coded Allergies: No Known Allergies (Verified Allergy, Unknown, 01/16/10) Objective Last 24 Hour Vital Signs Date Time Temp Pulse Resp B/P Pulse Ox O2 Delivery O2 Flow Rate FiO2 03/04/17 08:32 96.9 62 20 123/76 99 Room Air 03/04/17 08:20 54 18 Room Air 03/04/17 06:45 97.0 58 18 126/74 100 Room Air 03/04/17 04:31 97.5 55 20 114/67 100 Room Air 03/04/17 00:00 98.0 58 18 102/51 96 03/03/17 20:00 97.5 56 20 98/49 99 03/03/17 19:43 57 18 Room Air 03/03/17 15:30 97.3 64 18 122/64 97 Room Air 03/03/17 12:00 97.3 58 18 111/59 97 Room Air 03/03/17 12:00 55 Intake and Output 03/03/17 03/04/17 19:00 07:00 Intake Total 30 ml 330 ml Output Total 1050 ml 1000 ml Balance -1020 ml -670 ml IV Total 30 ml 330 ml Output Urine Total 1050 ml 1000 ml # Voids 3 Laboratory Tests 03/03/17 21:23: Urine Color Pale yellow, Urine Appearance Clear, Urine pH 7, Urine Specific [place] 1.005, Urine Protein Negative, Urine Glucose (UA) Negative, Urine Ketones Negative, Urine Occult Blood Negative, Urine Nitrite Negative, Urine Bilirubin Negative, Urine Urobilinogen Normal, Urine Leukocyte Esterase Negative , Urine RBC 0-2H, Urine WBC 0, Urine Squamous Epithelial Cells None, Urine Bacteria None 03/04/17 08:55: White Blood Count 3.2L, Red Blood Count 2.81L, Hemoglobin 8.6L, Hematocrit 26.2L , Mean Corpuscular Volume 93, Mean Corpuscular Hemoglobin 30.6, Mean Corpuscular Hemoglobin Concent 32.8, Red Cell Distribution Width 12.9, Platelet Count 168, Mean Platelet Volume 5.3L, Neutrophils (%) (Auto) , Lymphocytes (%) ( Auto) , Monocytes (%) (Auto) , Eosinophils (%) (Auto) , Basophils (%) (Auto) , Differential Total Cells Counted 100, Neutrophils % (Manual) 57, Lymphocytes % ( Manual) 29, Monocytes % (Manual) 12H, Eosinophils % (Manual) 2, Basophils % ( Manual) 0, Band Neutrophils 0, Platelet Estimate Adequate, Platelet Morphology Normal, Hypochromasia 1+, Sodium Level 126L, Potassium Level 5.4H, Chloride Level 90L, Carbon Dioxide Level 27, Anion Gap 9, Blood Urea Nitrogen 9, Creatinine 1.5H, Estimat Glomerular Filtration Rate , Glucose Level 70L, Uric Acid 4.4, Calcium Level 8.3L, Phosphorus Level 2.4L, Magnesium Level 1.5L, Total Bilirubin 0.4, Aspartate Amino Transf (AST/SGOT) 35, Alanine Aminotransferase (ALT/SGPT) 11, Alkaline Phosphatase 32L, Total Protein 6.4L, Albumin 3.5, Globulin 2.9, Albumin/Globulin Ratio 1.2 Height (Feet): 6 Height (Inches): 2.00 Weight (Pounds): 230 General Appearance: no apparent distress Objective no signs of CHF DENISE ORTIZ Mar 04, 2017 10:53
[2017-03-04] MEDS ORDERED: Sodium Polystyrene Sulfonate 15gm Powder ORAL ONE (11:00)
[2017-03-04] MEDS: Hydrocortisone 100mg Inj IV SCH ×2 (11:04→18:51)
[2017-03-04] MEDS: Phospha 250 Neutral tab ORAL SCH ×3 (11:04→21:50)
[2017-03-04 11:53] VITALS: BP 148/79
[2017-03-04] MEDS ORDERED: Vitamin D 50,000 units cap ORAL SCH (12:00)
[2017-03-04] MEDS ORDERED: NaCl 3% 500ml 250 ML IV ONE (13:00)
[2017-03-04] MEDS ORDERED: NaCl 3% 500ml 500 ML IV ONE (14:30)
[2017-03-04 16:07] VITALS: BP 140/74
--- NOTE | 2017-03-04 18:25 | Pulmonology Progress Note ---
Assessment/Plan Problems: (1) Hyponatremia (2) HTN (hypertension) (3) TIA (transient ischemic attack) (4) Anemia Assessment/Plan Na better today cortisol level was low, on steroids now dc planning for am Subjective ROS Limited/Unobtainable: No Interval Events: feeling better Allergies: Coded Allergies: No Known Allergies (Verified Allergy, Unknown, 01/16/10) Objective Last 24 Hour Vital Signs Date Time Temp Pulse Resp B/P Pulse Ox O2 Delivery O2 Flow Rate FiO2 03/04/17 16:07 97.6 66 20 140/74 96 Room Air 03/04/17 11:53 97.6 77 20 148/79 96 Room Air 03/04/17 08:32 96.9 62 20 123/76 99 Room Air 03/04/17 08:20 54 18 Room Air 03/04/17 06:45 97.0 58 18 126/74 100 Room Air 03/04/17 04:31 97.5 55 20 114/67 100 Room Air 03/04/17 00:00 98.0 58 18 102/51 96 03/03/17 20:00 97.5 56 20 98/49 99 03/03/17 19:43 57 18 Room Air Intake and Output 03/03/17 03/04/17 19:00 07:00 Intake Total 30 ml 330 ml Output Total 1050 ml 1000 ml Balance -1020 ml -670 ml IV Total 30 ml 330 ml Output Urine Total 1050 ml 1000 ml # Voids 3 Objective General Appearance: WD/WN Lines, tubes and drains: peripheral, HEENT: normocephalic, atraumatic Neck: non-tender, normal alignment Respiratory/Chest: chest wall non-tender, normal breath sounds Cardiovascular/Chest: normal peripheral pulses, normal rate Abdomen: normal bowel sounds Genitourinary/Rectal: normal genital exam Extremities: normal range of motion, normal inspection Skin Exam: normal pigmentation General Appearance: WD/WN Laboratory Tests 03/03/17 21:23: Urine Color Pale yellow, Urine Appearance Clear, Urine pH 7, Urine Specific [place] 1.005, Urine Protein Negative, Urine Glucose (UA) Negative, Urine Ketones Negative, Urine Occult Blood Negative, Urine Nitrite Negative, Urine Bilirubin Negative, Urine Urobilinogen Normal, Urine Leukocyte Esterase Negative , Urine RBC 0-2H, Urine WBC 0, Urine Squamous Epithelial Cells None, Urine Bacteria None 03/04/17 08:55: White Blood Count 3.2L, Red Blood Count 2.81L, Hemoglobin 8.6L, Hematocrit 26.2L , Mean Corpuscular Volume 93, Mean Corpuscular Hemoglobin 30.6, Mean Corpuscular Hemoglobin Concent 32.8, Red Cell Distribution Width 12.9, Platelet Count 168, Mean Platelet Volume 5.3L, Neutrophils (%) (Auto) , Lymphocytes (%) ( Auto) , Monocytes (%) (Auto) , Eosinophils (%) (Auto) , Basophils (%) (Auto) , Differential Total Cells Counted 100, Neutrophils % (Manual) 57, Lymphocytes % ( Manual) 29, Monocytes % (Manual) 12H, Eosinophils % (Manual) 2, Basophils % ( Manual) 0, Band Neutrophils 0, Platelet Estimate Adequate, Platelet Morphology Normal, Hypochromasia 1+, Sodium Level 126L, Potassium Level 5.4H, Chloride Level 90L, Carbon Dioxide Level 27, Anion Gap 9, Blood Urea Nitrogen 9, Creatinine 1.5H, Estimat Glomerular Filtration Rate , Glucose Level 70L, Uric Acid 4.4, Calcium Level 8.3L, Phosphorus Level 2.4L, Magnesium Level 1.5L, Total Bilirubin 0.4, Aspartate Amino Transf (AST/SGOT) 35, Alanine Aminotransferase (ALT/SGPT) 11, Alkaline Phosphatase 32L, Total Protein 6.4L, Albumin 3.5, Globulin 2.9, Albumin/Globulin Ratio 1.2 Current Medications Medications (Trade) Dose Ordered Sig/Jose Route PRN Reason Start Time Stop Time Status Last Admin Dose Admin Acetaminophen (Tylenol) 650 mg Q4H PRN ORAL FEVER 03/04/17 09:45 04/03/17 09:44 Albuterol/ Ipratropium (DuoNeb 0.5-3(2.5)mg/3ml) 3 ml Q4H PRN HHN Shortness of Breath 03/04/17 09:45 03/09/17 09:44 Aspirin (ASA) 162 mg DAILY ORAL 03/04/17 09:00 04/03/17 08:59 03/04/17 08:33 Atorvastatin Calcium (Lipitor) 10 mg BEDTIME ORAL 03/04/17 21:00 04/03/17 20:59 Ergocalciferol (Drisdol) 50,000 intlu Tu@1200 ORAL 03/04/17 12:00 04/03/17 11:59 03/04/17 12:13 Heparin Sodium (Porcine) (Heparin 5000 units/ml) 5,000 units EVERY 12 HOURS SUBQ 03/04/17 09:00 04/03/17 08:59 03/04/17 08:32 Hydrocortisone 100 mg 100 mg Q8H IV 03/04/17 11:00 03/05/17 03:01 03/04/17 11:04 Latanoprost (Xalatan) 1 drop BEDTIME BOTH EYES 03/04/17 21:00 04/03/17 20:59 Morphine Sulfate (Morphine Sulfate) 2 mg Q4H PRN IVP severe Pain (Pain Scale 7-10) 03/04/17 09:45 03/11/17 09:44 Nitroglycerin (Ntg) 0.4 mg Q5MIN X 3 DOSES PRN SL Prn Chest Pain 03/04/17 07:00 04/03/17 06:59 Ondansetron HCl (Zofran) 4 mg Q6H PRN IVP Nausea & Vomiting 03/04/17 09:45 04/03/17 09:44 Pantoprazole (Protonix) 40 mg BID ORAL 03/04/17 09:00 04/03/17 08:59 03/04/17 08:32 Phosphorus (Phospha 250 Neutral) 250 mg TID@1100,1500,2100 ORAL 03/04/17 11:00 03/04/17 21:01 03/04/17 16:23 Polyethylene Glycol (Miralax) 17 gm DAILYPRN PRN ORAL Constipation 03/04/17 09:45 04/03/17 09:44 Sodium Chloride (Hypertonic Saline) 250 ml @ 30 mls/hr ONCE ONCE IV 03/04/17 13:00 03/04/17 21:19 03/04/17 13:10 Tamsulosin HCl (Flomax) 0.4 mg BEDTIME ORAL 03/04/17 21:00 04/03/17 20:59 Temazepam (Restoril) 15 mg HSPRN PRN ORAL Insomnia 03/04/17 09:45 03/11/17 09:44 LALITHA NUNEZ Mar 04, 2017 18:25
[2017-03-04] MEDS ORDERED: Tamsulosin 0.4mg cap ORAL SCH (21:00)
[2017-03-05] VITALS: BP 113/65
[2017-03-05] MEDS: Hydrocortisone 100mg Inj IV SCH (03:54)
[2017-03-05 04:00] VITALS: BP 115/60
[2017-03-05 06:16] LABS: BASOPHILS % (AUTO) 0.2 % (0.0-2.0); LYMPHOCYTES % (AUTO) 12.3 % (20.0-45.0); MEAN CORPUSCULAR HEMOGLOBIN 30.6 PG (27.0-31.0); MEAN CORPUSCULAR HGB CONC 32.5 G/DL (32.0-36.0); MEAN CORPUSCULAR VOLUME 94 FL (80-99); MEAN PLATELET VOLUME 5.5 FL (6.5-10.1); MONOCYTES % (AUTO) 4.5 % (1.0-10.0); PLATELET COUNT 201 K/UL (150-450); RED BLOOD COUNT 2.96 M/UL (4.70-6.10); WHITE BLOOD COUNT 3.5 K/UL (4.8-10.8)
[2017-03-05 06:25] LABS: ALANINE AMINOTRANSFERASE 11 U/L (3-41); ANION GAP 14 (5-15); ASPARTATE AMINO TRANSFERASE 33 U/L (5-40); CALCIUM 8.5 mg/dL (8.6-10.2); CARBON DIOXIDE 25 mEQ/L (20-30); CHLORIDE 90 mEQ/L (98-107); CREATININE 1.7 mg/dL (0.7-1.2); CRP QUANT 0.6 mg/dL (< 0.5); HEMOLYSIS 3; MAGNESIUM 1.9 mg/dL (1.7-2.5); PHOSPHORUS 3.4 mg/dL (2.5-4.8); POTASSIUM 4.8 mEQ/L (3.4-4.9); SODIUM 129 mEQ/L (135-145); TOTAL PROTEIN 6.9 g/dL (6.6-8.7); URIC ACID 4.4 mg/dL (3.0-7.5)
[2017-03-05 08:12] VITALS: BP 131/74
[2017-03-05] MEDS: Aspirin Baby 81mg ORAL SCH (08:23)
[2017-03-05] MEDS: Heparin 5000 units/ml inj SUBQ SCH (08:28)
--- NOTE | 2017-03-05 10:58 | General Progress Note ---
Assessment/Plan Status: doing well Status Narrative Na 129 Assessment/Plan status: HypoNatremia- improved , doubt SIADH as patient also has renal insufficiency- Low AM Cortisol level HyperKalemia- Renal failure , Cr 1.9 - Cr lower BPH Anemia, etiology?? h/o TIA HTN DJD Plan: 3 doses IV hydrocortison given start on Po Hydrocortisone 50 am and 25 2 pm Anemia barrios further as OP monitor renal parameters- as OP Ok to DC friom renal stand point Subjective ROS Limited/Unobtainable: No Constitutional: Reports: malaise Allergies: Coded Allergies: No Known Allergies (Verified Allergy, Unknown, 01/16/10) Objective Last 24 Hour Vital Signs Date Time Temp Pulse Resp B/P Pulse Ox O2 Delivery O2 Flow Rate FiO2 03/05/17 08:12 98.6 97 21 131/74 99 Room Air 03/05/17 07:21 66 20 Room Air 21 03/05/17 04:00 97.8 68 17 115/60 96 Room Air 03/05/17 00:00 97.5 64 18 113/65 96 Room Air 03/04/17 19:30 60 20 Room Air 21 03/04/17 16:07 97.6 66 20 140/74 96 Room Air 03/04/17 11:53 97.6 77 20 148/79 96 Room Air Intake and Output 03/04/17 03/05/17 19:00 07:00 Intake Total 1590 ml 30 ml Output Total 700 ml Balance 890 ml 30 ml Intake Oral 1440 ml IV Total 150 ml 30 ml Output Urine Total 700 ml # Voids 3 Current Medications Medications (Trade) Dose Ordered Sig/Jose Route PRN Reason Start Time Stop Time Status Last Admin Dose Admin Acetaminophen (Tylenol) 650 mg Q4H PRN ORAL FEVER 03/04/17 09:45 04/03/17 09:44 Albuterol/ Ipratropium (DuoNeb 0.5-3(2.5)mg/3ml) 3 ml Q4H PRN HHN Shortness of Breath 03/04/17 09:45 03/09/17 09:44 Aspirin (ASA) 162 mg DAILY ORAL 03/04/17 09:00 04/03/17 08:59 03/05/17 08:23 Atorvastatin Calcium (Lipitor) 10 mg BEDTIME ORAL 03/04/17 21:00 04/03/17 20:59 03/04/17 21:50 Ergocalciferol (Drisdol) 50,000 intlu Tu@1200 ORAL 03/04/17 12:00 04/03/17 11:59 03/04/17 12:13 Heparin Sodium (Porcine) (Heparin 5000 units/ml) 5,000 units EVERY 12 HOURS SUBQ 03/04/17 09:00 04/03/17 08:59 03/05/17 08:28 Latanoprost (Xalatan) 1 drop BEDTIME BOTH EYES 03/04/17 21:00 04/03/17 20:59 03/04/17 21:50 Morphine Sulfate (Morphine Sulfate) 2 mg Q4H PRN IVP severe Pain (Pain Scale 7-10) 03/04/17 09:45 03/11/17 09:44 Nitroglycerin (Ntg) 0.4 mg Q5MIN X 3 DOSES PRN SL Prn Chest Pain 03/04/17 07:00 04/03/17 06:59 Ondansetron HCl (Zofran) 4 mg Q6H PRN IVP Nausea & Vomiting 03/04/17 09:45 04/03/17 09:44 Pantoprazole (Protonix) 40 mg BID ORAL 03/04/17 09:00 04/03/17 08:59 03/05/17 08:23 Polyethylene Glycol (Miralax) 17 gm DAILYPRN PRN ORAL Constipation 03/04/17 09:45 04/03/17 09:44 Tamsulosin HCl (Flomax) 0.4 mg BEDTIME ORAL 03/04/17 21:00 04/03/17 20:59 03/04/17 21:50 Temazepam (Restoril) 15 mg HSPRN PRN ORAL Insomnia 03/04/17 09:45 03/11/17 09:44 Laboratory Tests 03/05/17 04:40: White Blood Count 3.5L, Red Blood Count 2.96L, Hemoglobin 9.1L, Hematocrit 27.9L , Mean Corpuscular Volume 94, Mean Corpuscular Hemoglobin 30.6, Mean Corpuscular Hemoglobin Concent 32.5, Red Cell Distribution Width 13.0, Platelet Count 201, Mean Platelet Volume 5.5L, Neutrophils (%) (Auto) 83.0H, Lymphocytes (%) (Auto) 12.3L, Monocytes (%) (Auto) 4.5, Eosinophils (%) (Auto) 0.0, Basophils (%) (Auto) 0.2, Sodium Level 129L, Potassium Level 4.8, Chloride Level 90L, Carbon Dioxide Level 25, Anion Gap 14, Blood Urea Nitrogen 11, Creatinine 1.7H, Estimat Glomerular Filtration Rate , Glucose Level 118H, Uric Acid 4.4, Calcium Level 8.5L, Phosphorus Level 3.4, Magnesium Level 1.9, Total Bilirubin 0.4, Gamma Glutamyl Transpeptidase 14, Aspartate Amino Transf (AST/ SGOT) 33, Alanine Aminotransferase (ALT/SGPT) 11, Alkaline Phosphatase 35L, C- Reactive Protein, Quantitative 0.6H, Pro-B-Type Natriuretic Peptide 111, Total Protein 6.9, Albumin 3.6, Globulin 3.3, Albumin/Globulin Ratio 1.0 Height (Feet): 6 Height (Inches): 2.00 Weight (Pounds): 230 General Appearance: no apparent distress Cardiovascular: normal rate Abdomen: soft Objective no signs of CHF DENISE ORTIZ Mar 05, 2017 10:58
[2017-03-05 12:29] VITALS: BP 132/70
[2017-03-05 16:02] VITALS: BP 123/58
[2017-03-05] MEDS ORDERED: PREDNISOLO15 MG/5 M1 ORAL ×2 (16:41)
[2017-03-05] MEDS ORDERED: Tubing IV Secondary IV ONE (17:12)
--- NOTE | 2017-03-05 17:15 | Pulmonology Progress Note ---
Assessment/Plan Problems: (1) Hyponatremia (2) HTN (hypertension) (3) TIA (transient ischemic attack) (4) Anemia Assessment/Plan Na better today cortisol level was low, on steroids now dc planning for am Subjective Allergies: Coded Allergies: No Known Allergies (Verified Allergy, Unknown, 01/16/10) Objective Last 24 Hour Vital Signs Date Time Temp Pulse Resp B/P Pulse Ox O2 Delivery O2 Flow Rate FiO2 03/05/17 16:02 97.8 78 20 123/58 99 Room Air 03/05/17 12:29 97.1 72 20 132/70 96 Room Air 03/05/17 08:12 98.6 97 21 131/74 99 Room Air 03/05/17 07:21 66 20 Room Air 21 03/05/17 04:00 97.8 68 17 115/60 96 Room Air 03/05/17 00:00 97.5 64 18 113/65 96 Room Air 03/04/17 19:30 60 20 Room Air 21 Intake and Output 03/04/17 03/05/17 19:00 07:00 Intake Total 1590 ml 30 ml Output Total 700 ml Balance 890 ml 30 ml Intake Oral 1440 ml IV Total 150 ml 30 ml Output Urine Total 700 ml # Voids 3 Objective General Appearance: WD/WN Lines, tubes and drains: peripheral, HEENT: normocephalic, atraumatic Neck: non-tender, normal alignment Respiratory/Chest: chest wall non-tender, normal breath sounds Cardiovascular/Chest: normal peripheral pulses, normal rate Abdomen: normal bowel sounds Genitourinary/Rectal: normal genital exam Extremities: normal range of motion, normal inspection Skin Exam: normal pigmentation Laboratory Tests 03/05/17 04:40: White Blood Count 3.5L, Red Blood Count 2.96L, Hemoglobin 9.1L, Hematocrit 27.9L , Mean Corpuscular Volume 94, Mean Corpuscular Hemoglobin 30.6, Mean Corpuscular Hemoglobin Concent 32.5, Red Cell Distribution Width 13.0, Platelet Count 201, Mean Platelet Volume 5.5L, Neutrophils (%) (Auto) 83.0H, Lymphocytes (%) (Auto) 12.3L, Monocytes (%) (Auto) 4.5, Eosinophils (%) (Auto) 0.0, Basophils (%) (Auto) 0.2, Sodium Level 129L, Potassium Level 4.8, Chloride Level 90L, Carbon Dioxide Level 25, Anion Gap 14, Blood Urea Nitrogen 11, Creatinine 1.7H, Estimat Glomerular Filtration Rate , Glucose Level 118H, Uric Acid 4.4, Calcium Level 8.5L, Phosphorus Level 3.4, Magnesium Level 1.9, Total Bilirubin 0.4, Gamma Glutamyl Transpeptidase 14, Aspartate Amino Transf (AST/ SGOT) 33, Alanine Aminotransferase (ALT/SGPT) 11, Alkaline Phosphatase 35L, C- Reactive Protein, Quantitative 0.6H, Pro-B-Type Natriuretic Peptide 111, Total Protein 6.9, Albumin 3.6, Globulin 3.3, Albumin/Globulin Ratio 1.0 LALITHA NUNEZ Mar 05, 2017 17:15
--- NOTE | 2017-03-06 08:31 | Cardiology Report ---
APPROVED REPORT EKG Measurement Heart [id number] Normal sinus rhythm Right bundle branch block Lateral infarct, age undetermined Abnormal ECG
--- NOTE | 2017-03-06 11:32 | Discharge Summary ---
Discharge Summary Hospital Course Date of Admission Mar 01, 2017 at 09:36 Date of Discharge Mar 05, 2017 at 17:13 Admitting Diagnosis Hyponatremia, Anemia, Hyperkalemia HPI Koko Reis is a 76 year old male who was admitted on Mar 01, 2017 at 09:36 for Hyponatremia,Anemia,Hyperkalemia Hospital Course [id number] Discharge Discharge Disposition Patient was discharged to Home (01) Discharge Diagnoses: Gabriela Wyatt NP Mar 06, 2017 11:32
--- NOTE | 2017-03-06 17:30 | Discharge Summary 2 SIG ---
DATE OF ADMISSION: 03/01/2017 DATE OF DISCHARGE: 03/05/2017 CONSULTANTS: 1. Chris Christianson M.D. 2. Betsy Rosa M.D. BRIEF HOSPITAL COURSE: The patient is a 76-year-old male, who presented after increased palpitations, described as intermittent jumping sensation on the right side of the chest. Sensations have been occurring after or during exercise and symptoms have been gradual over the past two to three days. Workup at ED showed elevated CK 860. EKG showed normal sinus rhythm with no acute ischemic changes. Creatinine was elevated to 1.9. Sodium was 121 and potassium was 5.1. D-dimer was 342. Chest x-ray showed no acute cardiopulmonary disease. He was admitted to telemetry for cardiac evaluation of palpitations and chest pain. He was started with IV hydration. Echocardiogram done showed ejection fraction of 55% to 60% with normal left ventricular size, function, and wall motion with RVSP of 27. Chest pain did not appear to be due to angina based on EKG and troponin levels and appeared more of musculoskeletal in etiology. Electrolyte abnormalities were corrected. Ultrasound of the kidneys showed no hydronephrosis with a right renal cyst. Creatinine improved with IV hydration. Hyponatremia improved. He was given three doses of intravenous hydrocortisone due to low a.m. cortisol level and was started on p.o. hydrocortisone 50 mg in the a.m. and 25 mg in the afternoon. The patient was eventually discharged home. Advised to follow up with PCP as outpatient. FINAL DIAGNOSES: 1. Hyponatremia. 2. Hyperkalemia. 3. Acute kidney injury. 4. Hypocortisolism. 5. Benign prostatic hypertrophy. 6. Anemia. 7. Hypertension. 8. Hypercholesterolemia. 9. Mild rhabdomyolysis. Ishaan Andjuar M.D. I have been assigned to dictate discharge summary on this account and I was not involved in the patient's management. Toshia LaceyP. DR: KENTRELL JOB#: [id number] CC: LADONNA
== END 2017-03-05 17:13 | disposition home or self-care (01) | DRG 683 ==
LOC: EMR 06:53 → 2E 09:36 → EDBEDREQ 09:49 → 3E 03-04 06:39
DX: N17.9 Acute kidney failure, unspecified (principal); M62.82 Rhabdomyolysis; E87.5 Hyperkalemia; G45.9 Transient cerebral ischemic attack, unspecified; E87.1 Hypo-osmolality and hyponatremia; E78.00 Pure hypercholesterolemia, unspecified; R07.89 Other chest pain; N40.0 Benign prostatic hyperplasia without lower urinary tract symptoms; Z86.73 Personal history of transient ischemic attack (TIA), and cerebral infarction without residual deficits; M19.90 Unspecified osteoarthritis, unspecified site; D50.9 Iron deficiency anemia, unspecified; I12.9 Hypertensive chronic kidney disease with stage 1 through stage 4 chronic kidney disease, or unspecified chronic kidney disease; N18.9 Chronic kidney disease, unspecified
CPT/HCPCS: 36415; 71010; 76775; 80048; 80053; 80061; 81001; 82378; 82436; 82533; 82550; 82553; 82607; 82728; 82746; 82977; 83036; 83540; 83550; 83615; 83690; 83735; 83880; 83930; 83935; 84100; 84133; 84300; 84439; 84443; 84481; 84484; 84550; 85007; 85025; 85044; 85060; 85379; 85610; 85651; 85730; 86140; 89050; 93005; 93306; 94664; C9399

== ENCOUNTER 2017-06-03 08:29 | Emergency (ER) | payer MEDICARE, OTHER ==
[~2017-06-03] VITALS: Ht 188 cm; Wt 95.3 kg
[~2017-06-03 08:29] MED LIST changes: +FOLIC ACID1 MG ORAL; +HIGH POTENCY I134 MG PO; +LATANOPROST2.5 ML BOTH EYES; +NEPHROVITE1 TAB ORAL; +PREDNISOLO15 MG/5 M1 ORAL; +SIMVASTATIN20 MG ORAL; +TAMSULOSIN HCL0.4 MG ORAL
[2017-06-03 09:14] VITALS: BP 111/62
--- NOTE | 2017-06-03 12:39 | Emergency Room Report ---
History of Present Illness General Chief Complaint: General Complaint Source: Patient Present Illness HPI 76-year-old male presents ED for evaluation. Patient states the last few days he's noticed left-sided in right-sided facial swelling and lip swelling. Patient was seen by dentist yesterday and was prescribed antibiotics. Patient is not sure if he was told he had a dental infection. Patient denies any tongue swelling. Denies any shortness of breath or throat swelling. Denies fevers or chills. Denies any pain. No other aggravating or relieving factors. Denies any other associated symptoms Allergies: Coded Allergies: No Known Allergies (Verified Allergy, Unknown, 01/16/10) Patient History Past Medical History: HTN Past Surgical History: none Pertinent Family History: none Social History: Denies: smoking, alcohol use, drug use Immunizations: UTD Reviewed Nursing Documentation: PMH: Agreed, PSxH: Agreed Nursing Documentation-PMH Past Medical History: No History, Except For Hx Hypertension: Yes Hx Pacemaker: No Hx Asthma: No Hx COPD: No Hx Diabetes: No Hx Cancer: No Hx Gastrointestinal Problems: No Hx Dialysis: No History Of Psychiatric Problem: No Hx Neurological Problems: No Hx Cerebrovascular Accident: No Hx Seizures: No Review of Systems All Other Systems: negative except mentioned in HPI Physical Exam Vital Signs Date Time Temp Pulse Resp B/P (MAP) Pulse Ox O2 Delivery O2 Flow Rate FiO2 06/03/17 08:34 98.1 78 16 111/62 94 Room Air Sp02 EP Interpretation: reviewed, normal General Appearance: no apparent distress, alert, GCS 15, non-toxic Head: normocephalic, atraumatic, other - lip swelling, facial swelling Eyes: bilateral eye normal inspection, bilateral eye PERRL ENT: hearing grossly normal, normal pharynx, no angioedema, normal voice Neck: full range of motion, supple/symm/no masses Respiratory: chest non-tender, lungs clear, normal breath sounds, speaking full sentences Cardiovascular #1: regular rate, rhythm, no edema Cardiovascular #2: 2+ carotid (R), 2+ carotid (L), 2+ radial (R), 2+ radial (L) , 2+ dorsalis pedis (R), 2+ dorsalis pedis (L) Gastrointestinal: normal bowel sounds, non tender, soft, non-distended, no guarding, no rebound Rectal: deferred Genitourinary: normal inspection, no CVA tenderness Musculoskeletal: back normal, gait/station normal, normal range of motion, non- tender Neurologic: alert, oriented x3, responsive, motor strength/tone normal, sensory intact, speech normal Psychiatric: judgement/insight normal, memory normal, mood/affect normal, no suicidal/homicidal ideation Reflexes: 3+ bicep (R), 3+ bicep (L), 3+ tricep (R), 3+ tricep (L), 3+ knee (R) , 3+ knee (L) Skin: normal color, no rash, warm/dry, well hydrated Lymphatic: no adenopathy Medical Decision Making Diagnostic Impression: Primary Impression: Facial swelling ER Course 76-year-old male presents ED complaining of lip swelling and facial swelling Differential-angioedema, cellulitis, allergic reaction Patient placed on stretcher. After initial history physical exam reveals an elderly male in no acute distress. There is some pronounced lip swelling. Some minimally evident facial swelling. No tongue swelling. No stridor. Patient appears comfortable no signs of distress. There multiple dental caries but no signs of dental infection Patient is currently taking lisinopril was can likely be the cause of his swelling. Mild case of angioedema. I explained that S. course of action is to discontinue the lisinopril and followup with his PMD for alternative medication. If symptoms persist he should return to the ER. I recommend continue taking antibiotics as prescribed Patient states understanding and states he will see his PMD today Diagnoses-facial swelling Stable discharged to home. Continue antibiotics as prescribed. Stop lisinopril. Followup with PMD. Return to ED if symptoms recur or worsen Last Vital Signs Date Time Temp Pulse Resp B/P (MAP) Pulse Ox O2 Delivery O2 Flow Rate FiO2 06/03/17 09:14 98.1 16 111/62 94 Room Air 06/03/17 08:34 78 Status: improved Disposition: HOME, SELF-CARE Condition: Stable Referrals: [facility],REFERRING (PCP) Patient Instructions: Angioedema, [id number] Additional Instructions: stop taking lisinopril until you speak to your PMD ERIC BACON M.D. Jun 03, 2017 12:39
== END 2017-06-03 09:10 | disposition home or self-care (01) ==
LOC: EMR 09:04
DX: R22.0 Localized swelling, mass and lump, head (principal); I10 Essential (primary) hypertension; K02.9 Dental caries, unspecified; T78.3XXA Angioneurotic edema, initial encounter; X58.XXXA Exposure to other specified factors, initial encounter; Y93.9 Activity, unspecified; Y92.9 Unspecified place or not applicable
CPT/HCPCS: 99282

== ENCOUNTER 2017-06-26 17:11 | Inpatient (IN) | payer MEDICARE ==
[~2017-06-26] VITALS: Ht 188 cm; Wt 99.8 kg
[2017-06-26 18:11] LABS: MEAN CORPUSCULAR HEMOGLOBIN 29.5 PG (27.0-31.0); MEAN CORPUSCULAR HGB CONC 30.9 G/DL (32.0-36.0); MEAN CORPUSCULAR VOLUME 95 FL (80-99); MEAN PLATELET VOLUME 5.1 FL (6.5-10.1); PLATELET COUNT 182 K/UL (150-450); RED BLOOD COUNT 2.46 M/UL (4.70-6.10); RED CELL DISTRIBUTION WIDTH 12.2 % (11.6-14.8)
[2017-06-26 19:07] LABS: ALANINE AMINOTRANSFERASE 27 U/L (12-78); ANION GAP 4 (5-15); ASPARTATE AMINO TRANSFERASE 52 U/L (15-37); CALCIUM 8.8 MG/DL (8.5-10.1); CARBON DIOXIDE 27 MMOL/L (21-32); CHLORIDE 85 MMOL/L (98-107); CREATININE 1.6 MG/DL (0.55-1.30); TOTAL PROTEIN 7.6 G/DL (6.4-8.2)
[2017-06-26 19:08] LABS: PROTHROMBIN TIME 10.3 SEC (9.30-11.50)
[2017-06-26 19:08] LABS: SODIUM 116 MMOL/L (136-145)
[2017-06-26 19:17] LABS: ANISOCYTOSIS 1+; BAND NEUTROPHILS % (MANUAL) 0 % (0-8); BASOPHILS % (MANUAL) 1 % (0-2); EOSINOPHILS % (MANUAL) 4 % (0-3); LYMPHOCYTES % (MANUAL) 29 % (20-45); NEUTROPHILS % (MANUAL) 63 % (45-75); PLATELET ESTIMATE ADEQUATE; PLATELET MORPHOLOGY NORMAL; TOTAL CELLS COUNTED 100
[2017-06-26 19:18] LABS: HYPOCHROMASIA 2+
[2017-06-26 19:35] VITALS: BP 115/60
--- NOTE | 2017-06-26 19:41 | Emergency Room Report ---
History of Present Illness General Chief Complaint: Abnormal Labs Source: Patient Present Illness HPI [id number] with known iron deficiency anemia sent by PMD for blood transfusion Patient denies pain, chest pain, SOB, dizziness, syncope Occasional dark stool. Denies bloody stool, hematemesis Denies history of ulcers, heavy NSAID use Takes pepto "once a month" for abd pain Allergies: Coded Allergies: No Known Allergies (Verified Allergy, Unknown, 01/16/10) Patient History Past Medical History: other - anemia Past Surgical History: none Pertinent Family History: none Social History: Denies: smoking, alcohol use, drug use Immunizations: UTD Reviewed Nursing Documentation: PMH: Agreed, PSxH: Agreed Nursing Documentation-PMH Past Medical History: No History, Except For Hx Cardiac Problems: No - anemia Hx Hypertension: Yes Hx Pacemaker: No Hx Asthma: No Hx COPD: No Hx Diabetes: No Hx Cancer: No Hx Gastrointestinal Problems: No Hx Dialysis: No History Of Psychiatric Problem: No Hx Neurological Problems: No Hx Cerebrovascular Accident: No Hx Seizures: No Review of Systems All Other Systems: negative except mentioned in HPI Physical Exam Vital Signs Date Time Temp Pulse Resp B/P (MAP) Pulse Ox O2 Delivery O2 Flow Rate FiO2 06/26/17 17:24 98.1 78 16 102/49 99 Room Air Sp02 EP Interpretation: reviewed, normal General Appearance: normal inspection, well appearing, no apparent distress, alert, GCS 15, non-toxic Head: normocephalic, atraumatic Eyes: bilateral eye PERRL, bilateral eye EOMI ENT: normal ENT inspection, hearing grossly normal, normal voice Neck: normal inspection, full range of motion, supple, no bony tend Respiratory: normal inspection, lungs clear, normal breath sounds, no respiratory distress, no retraction, no wheezing Cardiovascular #1: regular rate, rhythm, no edema Gastrointestinal: normal inspection, normal bowel sounds, non tender, soft, no guarding, no hernia Genitourinary: no CVA tenderness Musculoskeletal: normal inspection, back normal, normal range of motion, Ella' s Sign negative Neurologic: normal inspection, alert, oriented x3, responsive, car stower III-XII nml as tested, motor strength/tone normal, speech normal Psychiatric: normal inspection, judgement/insight normal, mood/affect normal Skin: normal inspection, normal color, no rash Medical Decision Making Medicare Attestation I Alfred Segovia MD hereby attest that the medical record entry for date of service, 06/26/17 accurately reflects signatures/notations that I made in my capacity as MD when I treated/diagnosed the above listed Medicare beneficiary. I attest that this information is true, accurate and complete to the best of my knowledge. I understand that any falsification, omission, or concealment of material fact may subject me to administrative, civil, or criminal liability. This patient warrants hospital admission for extreme of age and has a condition that cannot be treated as outpatient. Diagnostic Impression: Primary Impression: Anemia Qualified Codes: D50.8 - Other iron deficiency anemias Additional Impressions: Hyponatremia LIBERTY (acute kidney injury) ER Course VSS. Afebrile Asymptomatic Sent for transfusion. Hb 7.3. Transfused 2U PRBC Hyponatremia and LIBERTY - likely d/t deghyration. Was given NS IVF in ED Endorsed to Dr Galaviz for Dr White at 7pm, tele admit given hyponatremia EKG Diagnostic Results Rate: normal Rhythm: other - RBBB ST Segments: no acute changes Rhythm Strip Diag. Results EP Interpretation: yes Rate: 61 Rhythm: NSR, no PVC's, no ectopy Last Vital Signs Date Time Temp Pulse Resp B/P (MAP) Pulse Ox O2 Delivery O2 Flow Rate FiO2 06/26/17 17:24 98.1 78 16 102/49 99 Room Air Status: improved Disposition: ADMITTED INPATIENT Condition: Serious Referrals: NON PHYSICIAN (PCP) ALFRED SEGOVIA M.D. Jun 26, 2017 19:41
[2017-06-26 21:00] VITALS: BP 120/68
[2017-06-26] MEDS ORDERED: Zolpidem 5mg tab ORAL PRN (22:30)
[2017-06-26] MEDS ORDERED: LORazepam Inj 2mg/ml 1ml IV PRN (22:30)
[2017-06-26] MEDS ORDERED: Mylanta II UD 30ml ORAL PRN (22:30)
[2017-06-26] MEDS ORDERED: Miralax 17gm pkt ORAL PRN (22:30)
[2017-06-26] MEDS ORDERED: Morphine Sulfate 2mg/ml Inj IVP PRN (22:30)
[2017-06-26 22:42] VITALS: BP 125/61
[2017-06-26 22:57] VITALS: BP 133/86
[2017-06-26 23:15] LABS: APPEARANCE,URINE CLEAR; KETONES,URINE NEGATIVE (NEGATIVE); LEUKOCYTE ESTERASE ,URINE NEGATIVE (NEGATIVE); NITRITE,URINE NEGATIVE (NEGATIVE); PH,URINE 7 (4.5-8.0); PROTEIN,URINE NEGATIVE (NEGATIVE); UROBILINOGEN,URINE 1 MG/DL (0.0-1.0)
[2017-06-26 23:22] LABS: BACTERIA,URINE FEW /HPF; RBC,URINE 0-2 /HPF (0 - 0); WBC,URINE 0-2 /HPF (0 - 0)
[2017-06-27 00:50] VITALS: BP 130/70
[2017-06-27 00:54] LABS: URIC ACID 4.6 MG/DL (2.6-7.2)
[2017-06-27 01:32] VITALS: BP 157/78
[2017-06-27 04:31] VITALS: BP 116/64
[2017-06-27 05:03] LABS: IRON 47 ug/dL (50-175); TOTAL IRON BINDING CAPACITY 218 ug/dL (250-450)
[2017-06-27 05:13] LABS: THYROID STIMULATING HORMONE 2.325 uiU/mL (0.360-3.740)
[2017-06-27 05:33] LABS: OSMOLALITY SERUM 253 mOsm/kg (297-317)
[2017-06-27 06:27] LABS: FOLIC ACID > 20.0 NG/ML (3.1-17.5)
[2017-06-27 07:53] LABS: BASOPHILS % (AUTO) 1.6 % (0.0-2.0); EOSINOPHILS % (AUTO) 4.5 % (0.0-3.0); LYMPHOCYTES % (AUTO) 19.6 % (20.0-45.0); MEAN CORPUSCULAR HGB CONC 32.8 G/DL (32.0-36.0); MEAN CORPUSCULAR VOLUME 94 FL (80-99); MEAN PLATELET VOLUME 5.8 FL (6.5-10.1); MONOCYTES % (AUTO) 9.9 % (1.0-10.0); NEUTROPHILS % (AUTO) 64.4 % (45.0-75.0); PLATELET COUNT 168 K/UL (150-450); RED BLOOD COUNT 2.62 M/UL (4.70-6.10); RED CELL DISTRIBUTION WIDTH 12.1 % (11.6-14.8); WHITE BLOOD COUNT 3.5 K/UL (4.8-10.8)
[2017-06-27 08:28] VITALS: BP 113/63
[2017-06-27 08:28] LABS: ALANINE AMINOTRANSFERASE 25 U/L (12-78); ALBUMIN/GLOBULIN RATIO 1.1 (1.0-2.7); ANION GAP 4 (5-15); ASPARTATE AMINO TRANSFERASE 47 U/L (15-37); CALCIUM 8.8 MG/DL (8.5-10.1); CARBON DIOXIDE 26 MMOL/L (21-32); CHLORIDE 87 MMOL/L (98-107); CREATININE 1.4 MG/DL (0.55-1.30); POTASSIUM 5.2 MMOL/L (3.5-5.1); TOTAL PROTEIN 6.9 G/DL (6.4-8.2)
[2017-06-27 08:31] LABS: SODIUM 117 MMOL/L (136-145)
[2017-06-27] MEDS ORDERED: Atenolol 25mg tab ORAL SCH (09:00)
[2017-06-27] MEDS ORDERED: Flonase Nasal Inhaler 16gm NASAL SCH (09:00)
[2017-06-27] MEDS ORDERED: Aspirin Baby 81mg ORAL SCH (09:00)
[2017-06-27] MEDS ORDERED: Lisinopril 20mg tab ORAL SCH (09:00)
[2017-06-27] MEDS ORDERED: Nephrovite tab (Rena-Vite) ORAL SCH (09:00)
[2017-06-27 09:37] LABS: ERYTHROCYTE SEDIMENTATION RATE 24 MM/HR (0-20); PATH BLOOD SMEAR/OMC SEND TO PATHOLOGIST
[2017-06-27 10:51] LABS: ACANTHOCYTES 1+; BAND NEUTROPHILS % (MANUAL) 0 % (0-8); BASOPHILS % (MANUAL) 1 % (0-2); EOSINOPHILS % (MANUAL) 4 % (0-3); LYMPHOCYTES % (MANUAL) 25 % (20-45); NEUTROPHILS % (MANUAL) 63 % (45-75); PLATELET ESTIMATE ADEQUATE; PLATELET MORPHOLOGY NORMAL; TOTAL CELLS COUNTED 100
[2017-06-27 11:11] LABS: RETICULOCYTE COUNT 1.5 % (0.0-2.0)
[2017-06-27 11:28] VITALS: BP 140/68
--- NOTE | 2017-06-27 12:52 | Diagnostic Imaging Report ---
Indication: Dyspnea Comparison: 03/03/17 A single view chest radiograph was obtained. Findings: Left hemidiaphragm is elevated, which is unchanged. Heart size is normal. Bones are slight osteopenic. Impression: No acute findings
--- NOTE | 2017-06-27 14:29 | History and Physical ---
History of Present Illness General Date patient seen: Jun 27, 2017 Reason for Hospitalization: Abnormal Labs Present Illness HPI 77 year old male with hx of HTN with known iron deficiency anemia sent by PMD for blood transfusion Patient denies pain, chest pain, SOB, dizziness, syncope. Pt is admitted to telemetry because of symptomatic anemia. Allergies: Coded Allergies: No Known Allergies (Verified Allergy, Unknown, 01/16/10) Medication History Scheduled Amlodipine Besylate* (Amlodipine Besylate*), ORAL DAILY, (Reported) Aspirin* (Aspirin*), 81 MG ORAL DAILY Atenolol* (Tenormin*), ORAL DAILY, (Reported) Atorvastatin Calcium* (Lipitor*), ORAL BEDTIME, (Reported) Ferrous Sulfate (High Potency Iron), 325 MG PO DAILY, (Reported) Fluticasone Propionate (Fluticasone Propionate), 2 SPRAYS NASAL BID, (Reported) Folic Acid* (Folic Acid*), 1 MG ORAL DAILY, (Reported) Latanoprost* (Xalatan*), 1 DRP OP BEDTIME, (Reported) Latanoprost* (Xalatan*), 1 DROP BOTH EYES BEDTIME, (Reported) Lisinopril* (Lisinopril*), ORAL DAILY, (Reported) Prednisolone* (Prelone*), 40 MG ORAL BEFORE BREAKFAST Prednisolone* (Prelone*), 20 MG ORAL BEFORE DINNER Simvastatin (Zocor), 20 MG ORAL BEDTIME, (Reported) Tamsulosin Hcl (Tamsulosin Hcl*), 0.4 MG ORAL BEDTIME, (Reported) Vitamin B Cmplx/Vit C/Folic AC (Nephro-Todd Tablet), 1 TAB ORAL DAILY, (Reported ) Patient History Healthcare decision maker Resuscitation status Full Code Advanced Directive on File No Past Medical/Surgical History Past Medical/Surgical History: (1) HTN (hypertension) (2) BPH (benign prostatic hyperplasia) (3) Hypercholesteremia (4) TIA (transient ischemic attack) Review of Systems All Other Systems: negative except mentioned in HPI Physical Exam General Appearance: WD/WN Lines, tubes and drains: peripheral HEENT: normocephalic, atraumatic Neck: non-tender, normal alignment Respiratory/Chest: chest wall non-tender, lungs clear Cardiovascular/Chest: normal peripheral pulses, normal rate Abdomen: normal bowel sounds, non tender Genitourinary/Rectal: normal genital exam, normal rectal exam Extremities: normal range of motion Last 24 Hour Vital Signs Date Time Temp Pulse Resp B/P (MAP) Pulse Ox O2 Delivery O2 Flow Rate FiO2 06/27/17 11:28 97.6 55 20 140/68 98 Nasal Cannula 2.0 06/27/17 08:28 97.2 74 20 113/63 99 Nasal Cannula 2.0 06/27/17 08:16 100 Nasal Cannula 1.0 06/27/17 08:16 Nasal Cannula 1.0 06/27/17 04:31 97.2 54 20 116/64 95 Room Air 06/27/17 04:00 67 06/27/17 01:32 98.1 63 20 157/78 94 Nasal Cannula 2.0 06/27/17 00:55 97.9 70 18 130/70 100 Room Air 06/27/17 00:50 97.9 70 18 06/27/17 00:50 97.9 70 18 130/70 100 Room Air 06/26/17 22:57 97.7 58 17 133/86 100 Room Air 06/26/17 22:42 96.5 64 18 06/26/17 22:42 96.5 64 18 125/61 100 Room Air 06/26/17 21:00 97.9 67 17 120/68 99 Room Air 06/26/17 19:35 98.0 64 16 115/60 98 Room Air 06/26/17 17:24 98.1 78 16 102/49 99 Room Air Intake and Output 06/27/17 06/28/17 19:00 07:00 Intake Total 550 ml Balance 550 ml Intake Oral 550 ml # Voids 3 Laboratory Tests Test 06/26/17 17:35 06/26/17 18:25 06/26/17 18:50 06/26/17 22:19 White Blood Count 3.0 K/UL (4.8-10.8) L Red Blood Count 2.46 M/UL (4.70-6.10) L Hemoglobin 7.3 G/DL (14.2-18.0) L Hematocrit 23.5 % (42.0-52.0) L Mean Corpuscular Volume 95 FL (80-99) Mean Corpuscular Hemoglobin 29.5 PG (27.0-31.0) Mean Corpuscular Hemoglobin Concent 30.9 G/DL (32.0-36.0) L Red Cell Distribution Width 12.2 % (11.6-14.8) Platelet Count 182 K/UL (150-450) Mean Platelet Volume 5.1 FL (6.5-10.1) L Neutrophils (%) (Auto) % (45.0-75.0) Lymphocytes (%) (Auto) % (20.0-45.0) Monocytes (%) (Auto) % (1.0-10.0) Eosinophils (%) (Auto) % (0.0-3.0) Basophils (%) (Auto) % (0.0-2.0) Differential Total Cells Counted 100 Neutrophils % (Manual) 63 % (45-75) Lymphocytes % (Manual) 29 % (20-45) Monocytes % (Manual) 3 % (1-10) Eosinophils % (Manual) 4 % (0-3) H Basophils % (Manual) 1 % (0-2) Band Neutrophils 0 % (0-8) Platelet Estimate Adequate Platelet Morphology Normal Hypochromasia 2+ Anisocytosis 1+ Sodium Level 116 MMOL/L (136-145) *L Potassium Level 5.0 MMOL/L (3.5-5.1) Chloride Level 85 MMOL/L (98-107) L Carbon Dioxide Level 27 MMOL/L (21-32) Anion Gap 4 (5-15) L Blood Urea Nitrogen 14 mg/dL (7-18) Creatinine 1.6 MG/DL (0.55-1.30) H Estimat Glomerular Filtration Rate mL/min (>60) Glucose Level 107 MG/DL (74-106) H Osmolality 253 mOsm/kg (297-317) L Uric Acid 4.6 MG/DL (2.6-7.2) Calcium Level 8.8 MG/DL (8.5-10.1) Iron Level 47 ug/dL (50-175) L Total Iron Binding Capacity 218 ug/dL (250-450) L Percent Iron Saturation 22 % (15-50) Unsaturated Iron Binding 171 ug/dL (112-346) Total Bilirubin 0.4 MG/DL (0.2-1.0) Aspartate Amino Transf (AST/SGOT) 52 U/L (15-37) H Alanine Aminotransferase (ALT/SGPT) 27 U/L (12-78) Alkaline Phosphatase 42 U/L (46-116) L Lactate Dehydrogenase 297 U/L (135-225) H Total Protein 7.6 G/DL (6.4-8.2) Albumin 3.8 G/DL (3.4-5.0) Globulin 3.8 g/dL Albumin/Globulin Ratio 1.0 (1.0-2.7) Vitamin B12 Level 949 PG/ML (193-986) Folate > 20.0 NG/ML (3.1-17.5) H Thyroid Stimulating Hormone (TSH) 2.325 uiU/mL (0.360-3.740) Free Thyroxine 0.68 NG/DL (0.10-1.46) Prothrombin Time 10.3 SEC (9.30-11.50) Prothromb Time International Ratio 1.0 (0.9-1.1) Activated Partial Thromboplast Time 31 SEC (23-33) Urine Color Yellow Urine Appearance Clear Urine pH 7 (4.5-8.0) Urine Specific [place] 1.010 (1.005-1.035) Urine Protein Negative (NEGATIVE) Urine Glucose (UA) Negative (NEGATIVE) Urine Ketones Negative (NEGATIVE) Urine Occult Blood Negative (NEGATIVE) Urine Nitrite Negative (NEGATIVE) Urine Bilirubin Negative (NEGATIVE) Urine Urobilinogen 1 MG/DL (0.0-1.0) H Urine Leukocyte Esterase Negative (NEGATIVE) Urine RBC 0-2 /HPF (0 - 0) H Urine WBC 0-2 /HPF (0 - 0) Urine Squamous Epithelial Cells None /LPF (NONE/OCC) Urine Bacteria Few /HPF (NONE) Urine Osmolality 500 mOsm/kg (429-449) H Urine Random Sodium 111 MEQ/L (20-110) H Carcinoembryonic Antigen Pending Test 06/27/17 05:10 White Blood Count 3.5 K/UL (4.8-10.8) L Red Blood Count 2.62 M/UL (4.70-6.10) L Hemoglobin 8.1 G/DL (14.2-18.0) L Hematocrit 24.7 % (42.0-52.0) L Mean Corpuscular Volume 94 FL (80-99) Mean Corpuscular Hemoglobin 31.0 PG (27.0-31.0) Mean Corpuscular Hemoglobin Concent 32.8 G/DL (32.0-36.0) Red Cell Distribution Width 12.1 % (11.6-14.8) Platelet Count 168 K/UL (150-450) Mean Platelet Volume 5.8 FL (6.5-10.1) L Neutrophils (%) (Auto) 64.4 % (45.0-75.0) Lymphocytes (%) (Auto) 19.6 % (20.0-45.0) L Monocytes (%) (Auto) 9.9 % (1.0-10.0) Eosinophils (%) (Auto) 4.5 % (0.0-3.0) H Basophils (%) (Auto) 1.6 % (0.0-2.0) Differential Total Cells Counted 100 Neutrophils % (Manual) 63 % (45-75) Lymphocytes % (Manual) 25 % (20-45) Monocytes % (Manual) 7 % (1-10) Eosinophils % (Manual) 4 % (0-3) H Basophils % (Manual) 1 % (0-2) Band Neutrophils 0 % (0-8) Platelet Estimate Adequate Platelet Morphology Normal Acanthocytes 1+ Erythrocyte Sedimentation Rate 24 MM/HR (0-20) H Reticulocyte Count 1.5 % (0.0-2.0) Sodium Level 117 MMOL/L (136-145) *L Potassium Level 5.2 MMOL/L (3.5-5.1) H Chloride Level 87 MMOL/L (98-107) L Carbon Dioxide Level 26 MMOL/L (21-32) Anion Gap 4 (5-15) L Blood Urea Nitrogen 12 mg/dL (7-18) Creatinine 1.4 MG/DL (0.55-1.30) H Estimat Glomerular Filtration Rate mL/min (>60) Glucose Level 79 MG/DL (74-106) Calcium Level 8.8 MG/DL (8.5-10.1) Total Bilirubin 0.8 MG/DL (0.2-1.0) Aspartate Amino Transf (AST/SGOT) 47 U/L (15-37) H Alanine Aminotransferase (ALT/SGPT) 25 U/L (12-78) Alkaline Phosphatase 36 U/L (46-116) L Total Protein 6.9 G/DL (6.4-8.2) Albumin 3.6 G/DL (3.4-5.0) Globulin 3.3 g/dL Albumin/Globulin Ratio 1.1 (1.0-2.7) Free Triiodothyronine Pending Cortisol Pending Height (Feet): 6 Height (Inches): 2.00 Weight (Pounds): 220 Medications Current Medications Medications (Trade) Dose Ordered Sig/Jose Route PRN Reason Start Time Stop Time Status Last Admin Dose Admin Acetaminophen (Tylenol) 650 mg Q4H PRN ORAL fever 06/26/17 22:30 07/26/17 22:29 Al Hydroxide/Mg Hydroxide (Mylanta II) 30 ml Q6H PRN ORAL dyspepsia 06/26/17 22:30 07/26/17 22:29 Dextrose (Dextrose 50%) STAT PRN IV Hypoglycemia 06/26/17 22:30 07/26/17 22:29 Lorazepam (Ativan 2mg/ml 1ml) 0.5 mg Q4H PRN IV For Anxiety 06/26/17 22:30 07/03/17 22:29 Morphine Sulfate (Morphine Sulfate) 1 mg Q4H PRN IVP For Pain 4-10 06/26/17 22:30 07/03/17 22:29 Ondansetron HCl (Zofran) 4 mg Q6H PRN IVP Nausea & Vomiting 06/26/17 22:30 07/26/17 22:29 Polyethylene Glycol (Miralax) 17 gm HSPRN PRN ORAL Constipation 06/26/17 22:30 07/26/17 22:29 Zolpidem Tartrate (Ambien) 5 mg HSPRN PRN ORAL Insomnia 06/26/17 22:30 07/03/17 22:29 Assessment/Plan Problem List: (1) Anemia ICD Codes: D64.9 - Anemia SNOMED: 750314058 Qualifiers: Qualified Codes: D50.8 - Other iron deficiency anemias (2) Hyponatremia ICD Codes: E87.1 - Hypo-osmolality and hyponatremia SNOMED: 90046040 (3) HTN (hypertension) ICD Codes: I10 - Essential (primary) hypertension SNOMED: 97493787 (4) BPH (benign prostatic hyperplasia) ICD Codes: N40.0 - Benign prostatic hyperplasia without lower urinary tract symptoms SNOMED: 834689504, 253577179 Assessment/Plan prbc anemia w/u including OB from stool w/u for hyponatremia. LALITHA NUNEZ Jun 27, 2017 14:29
[2017-06-27] MEDS ORDERED: NaCl 3% 500ml 500 ML IV ONE (16:00)
[2017-06-27] MEDS ORDERED: Latanoprost 0.005% Opth 2.5ml Soln BOTH EYES SCH (21:00)
[2017-06-27] MEDS ORDERED: Tamsulosin 0.4mg cap ORAL SCH (21:00)
[2017-06-28 08:08] LABS: FREE TRIIODOTHYRONINE 1.8 pg/mL (2.0-4.4)
[2017-06-28 11:18] LABS: CORTISOL LC 3.6 ug/dL (.)
[2017-06-29 08:24] LABS: OTHERS PATHOLOGIST COMMENT
--- NOTE | 2017-06-30 11:03 | Discharge Summary ---
Discharge Summary Hospital Course Date of Admission Jun 26, 2017 at 19:06 Date of Discharge Jun 27, 2017 at 15:17 Admitting Diagnosis anemia/transfusion HPI Koko Reis is a 77 year old male who was admitted on Jun 26, 2017 at 19:06 for Anemia/Transfusion Hospital Course dc summary #[id number] Discharge Discharge Disposition Patient was discharged to Discharge Diagnoses: Discharge Instructions Discharge Instructions Special Instructions I have been assigned to complete a D/C Summary on this account. I was not involved in the patient management Mavis Recinos NP (Vanchtein) Jun 30, 2017 11:03
--- NOTE | 2017-07-01 03:00 | Discharge Summary 2 SIG ---
DATE OF ADMISSION: 06/26/2017 DATE OF SIGNING AGAINST MEDICAL ADVSIE : 06/27/2017 REASON FOR ADMISSION: 77-year-old male with history of hypertension, hypercholesteremia, anemia, BPH, and TIA, was sent by primary medical doctor for blood transfusion. Workup in the emergency room revealed hemoglobin -7.3, hematocrit -23.5, and WBC -3.0. Coagulation profile WAS stable. Sodium- 116, potassium -5.2, BUN -14, and creatinine -1.6. The patient was admitted for further management. HOSPITAL COURSE: The patient was admitted. Anemia workup and hyponatremia workup were initiated. The patient undergone transfusion of two units of PRBC. Supplemental oxygen provided as needed to keep saturation above 92%. Chest x-ray was negative. Venous duplex of bilateral lower extremities was negative. Blood pressure was stable. No need for antihypertensive medication. After receiving two units of packed red blood cells, next day, hemoglobin -8.1 and hematocrit -24.7. Anemia workup was consistent with anemia of chronic disease. The patient decided to sign against medical advice. He stated that he was feeling better. Risks and consequences of signing against medical advice were discussed with the patient. The patient verbalized understanding . but still decided to sign against medical advice form. Of note, Of note, initial sodium -116, next day- 117. Initial BUN -14 and creatinine- 1.6. Upon signing against medical advice, BUN down to 12 and creatinine down to 1.4. The patient status post one liter of normal saline at the emergency room. FINAL DIAGNOSES: 1. Acute anemia 2. status post two units of packed red blood cell transfusion. 3. Acute hyponatremia. 4. Hypertension. 5. Benign prostatic hypertrophy. 6. Acute kidney injury, possibly due to dehydration Ishaan Andujar M.D. I have been assigned to dictate discharge summary on this account and I was not involved in the patient's management. Mavis VicenteHorton Medical CenterCecilio N.PCarina DR: RONEN JOB#: [id number] CC: LADONNA
--- NOTE | 2017-07-02 23:38 | Diagnostic Imaging Report ---
APPROVED REPORT CPT Code: 40106 Present Symptoms Comments: Pain BILATERAL: Imaging reveals a patent deep venous system bilaterally. There is no evidence of thrombus within the femoral, popliteal or tibial segments. The greater saphenous veins are also within normal limits. Doppler indicates normal spontaneous flow within these segments.
--- NOTE | 2017-07-08 08:41 | Cardiology Report ---
APPROVED REPORT EKG Measurement Heart [id number] Normal sinus rhythm Right bundle branch block Abnormal ECG
== END 2017-06-27 15:17 | disposition left against medical advice (07) | DRG 812 ==
LOC: EDBEDREQSVC 18:27 → EMR 18:57 → 2E 19:06 → EDBEDREQSVC 19:11 → EDBEDREQ 19:11
PROC: 30233N1 Transfusion of Nonautologous Red Blood Cells into Peripheral Vein, Percutaneous Approach (ICD-10-PCS; principal; 2017-06-26)
DX: D50.9 Iron deficiency anemia, unspecified (principal); N17.9 Acute kidney failure, unspecified; E87.1 Hypo-osmolality and hyponatremia; I10 Essential (primary) hypertension; E78.00 Pure hypercholesterolemia, unspecified; N40.0 Benign prostatic hyperplasia without lower urinary tract symptoms; Z53.21 Procedure and treatment not carried out due to patient leaving prior to being seen by health care provider; Z86.73 Personal history of transient ischemic attack (TIA), and cerebral infarction without residual deficits
CPT/HCPCS: 36415; 36430; 71010; 80053; 81001; 82378; 82533; 82607; 82746; 83540; 83550; 83615; 83930; 83935; 84300; 84439; 84443; 84481; 84550; 85007; 85025; 85044; 85060; 85610; 85651; 85730; 86850; 86900; 86901; 86920; 93005; 93970; 94760; 99285

== ENCOUNTER 2018-04-10 13:28 | Emergency (ER) | payer MEDICARE, OTHER ==
[~2018-04-10] VITALS: Ht 188 cm; Wt 99.8 kg
[2018-04-10 14:03] VITALS: BP 146/74
[2018-04-10] MEDS ORDERED: Pantoprazole 80 MG in NS 250 ML IV ONE (14:15)
[2018-04-10] MEDS ORDERED: Pantoprazole Inj IVP ONE (14:15)
--- NOTE | 2018-04-10 14:15 | Emergency Room Report ---
History of Present Illness General Chief Complaint: Abnormal Labs Source: Patient Present Illness HPI This patient has a history of anemia. He has been followed by a corporate trainer. There is concern that he has a GI bleed. However, of the source has not been identified. He has been seen by gastroenterology and undergone upper endoscopy and pill endoscopy. The source of the GI bleed was unable to be identified. The patient is on oral iron. The patient states that he has noted some dark stools over the past few days. He denies diarrhea or vomiting. He denies fever or chills. He admits that he has had some headaches and has been taking Excedrin for his headaches. He denies other end-stage use. He denies abdominal pain. He denies nausea. He has no other complaints. Allergies: Coded Allergies: No Known Allergies (Verified Allergy, Unknown, 01/16/10) Patient History Past Medical History: see triage record, HTN, GI bleed, other - Anemia, SHAW's Social History: Denies: smoking, alcohol use, drug use Reviewed Nursing Documentation: PMH: Agreed; PSxH: Agreed Nursing Documentation-PMH Past Medical History: No History, Except For Hx Cardiac Problems: Yes Hx Hypertension: Yes Hx Pacemaker: No Hx Asthma: No Hx COPD: No Hx Diabetes: No Hx Cancer: No Hx Gastrointestinal Problems: No Hx Dialysis: No Hx Neurological Problems: No Hx Cerebrovascular Accident: No Hx Seizures: No Review of Systems All Other Systems: negative except mentioned in HPI Physical Exam Vital Signs Date Time Temp Pulse Resp B/P (MAP) Pulse Ox O2 Delivery O2 Flow Rate FiO2 04/10/18 13:41 98.4 59 16 146/74 94 Room Air 98.4 Sp02 EP Interpretation: reviewed, normal General Appearance: no apparent distress, alert, GCS 15, non-toxic Head: normocephalic, atraumatic Eyes: bilateral eye normal inspection, bilateral eye PERRL ENT: hearing grossly normal, normal pharynx, no angioedema, normal voice Neck: full range of motion, supple/symm/no masses Respiratory: chest non-tender, lungs clear, normal breath sounds, no respiratory distress, no retraction, no accessory muscle use, speaking full sentences Cardiovascular #1: regular rate, rhythm, no edema Gastrointestinal: normal bowel sounds, non tender, soft, non-distended, no guarding, no rebound Rectal: deferred Musculoskeletal: back normal, gait/station normal, normal range of motion, non- tender Neurologic: alert, oriented x3, responsive, motor strength/tone normal, sensory intact, speech normal Psychiatric: judgement/insight normal, memory normal, mood/affect normal, no suicidal/homicidal ideation Skin: normal color, no rash, warm/dry, well hydrated Medical Decision Making Diagnostic Impression: Primary Impression: Anemia ER Course This patient was sent in by his corporate trainer for concern of profound anemia. The patient had laboratory tests and it showed a hemoglobin of 7.8. However, repeat tests today show hemoglobin of 9.4. Likely this patient does have an occult GI bleed. However, the patient has had a full workup to include endoscopy and other tests. He is being followed by hematology. At this time, the patient's hemoglobin does not meet criteria for a blood transfusion. I also feel that this patient does not needed admission for further workup as an inpatient. Patient was instructed to follow-up with his corporate trainer, lighting director and primary care physician. At this time, I did not identify an emergency medical condition. The patient is given return precautions and follow-up instructions. Laboratory Tests Test 04/10/18 14:00 04/10/18 14:05 White Blood Count 6.0 K/UL (4.8-10.8) Red Blood Count 2.98 M/UL (4.70-6.10) L Hemoglobin 9.4 G/DL (14.2-18.0) L Hematocrit 29.8 % (42.0-52.0) L Mean Corpuscular Volume 100 FL (80-99) H Mean Corpuscular Hemoglobin 31.6 PG (27.0-31.0) H Mean Corpuscular Hemoglobin Concent 31.6 G/DL (32.0-36.0) L Red Cell Distribution Width 11.7 % (11.6-14.8) Platelet Count 232 K/UL (150-450) Mean Platelet Volume 5.8 FL (6.5-10.1) L Neutrophils (%) (Auto) % (45.0-75.0) Lymphocytes (%) (Auto) % (20.0-45.0) Monocytes (%) (Auto) % (1.0-10.0) Eosinophils (%) (Auto) % (0.0-3.0) Basophils (%) (Auto) % (0.0-2.0) Differential Total Cells Counted 100 Neutrophils % (Manual) 85 % (45-75) H Lymphocytes % (Manual) 10 % (20-45) L Monocytes % (Manual) 4 % (1-10) Eosinophils % (Manual) 0 % (0-3) Basophils % (Manual) 1 % (0-2) Band Neutrophils 0 % (0-8) Platelet Estimate Adequate Platelet Morphology Normal Hypochromasia 1+ Anisocytosis 1+ Sodium Level 139 MMOL/L (136-145) Potassium Level 4.1 MMOL/L (3.5-5.1) Chloride Level 102 MMOL/L (98-107) Carbon Dioxide Level 30 MMOL/L (21-32) Anion Gap 7 mmol/L (5-15) Blood Urea Nitrogen 19 mg/dL (7-18) H Creatinine 1.8 MG/DL (0.55-1.30) H Estimate Glomerular Filtration Rate mL/min (>60) Glucose Level 112 MG/DL (74-106) H Calcium Level 9.5 MG/DL (8.5-10.1) Total Bilirubin 0.2 MG/DL (0.2-1.0) Aspartate Amino Transferase (AST) 49 U/L (15-37) H Alanine Aminotransferase (ALT) 28 U/L (12-78) Alkaline Phosphatase 43 U/L (46-116) L Total Protein 9.0 G/DL (6.4-8.2) H Albumin 4.4 G/DL (3.4-5.0) Globulin 4.6 g/dL Albumin/Globulin Ratio 1.0 (1.0-2.7) Prothrombin Time 10.5 SEC (9.30-11.50) Prothrombin Time INR 1.0 (0.9-1.1) PTT 27 SEC (23-33) Last Vital Signs Date Time Temp Pulse Resp B/P (MAP) Pulse Ox O2 Delivery O2 Flow Rate FiO2 04/10/18 14:03 98.4 59 16 146/74 94 Room Air 98.4 Disposition: HOME, SELF-CARE Condition: Stable Shyann Varner DO Apr 10, 2018 14:15
[2018-04-10] MEDS ORDERED: Pantoprazole Inj ONE (14:26)
[2018-04-10 14:42] LABS: HEMATOCRIT 29.8 % (42.0-52.0); HEMOGLOBIN 9.4 G/DL (14.2-18.0); MEAN CORPUSCULAR VOLUME 100 FL (80-99); PLATELET COUNT 232 K/UL (150-450); RED BLOOD COUNT 2.98 M/UL (4.70-6.10); RED CELL DISTRIBUTION WIDTH 11.7 % (11.6-14.8)
[2018-04-10 14:57] LABS: ANION GAP 7 mmol/L (5-15); BLOOD UREA NITROGEN 19 mg/dL (7-18); CALCIUM 9.5 MG/DL (8.5-10.1); CARBON DIOXIDE 30 MMOL/L (21-32); CHLORIDE 102 MMOL/L (98-107); CREATININE 1.8 MG/DL (0.55-1.30); POTASSIUM 4.1 MMOL/L (3.5-5.1); SODIUM 139 MMOL/L (136-145)
[2018-04-10 15:00] VITALS: BP 133/68
[2018-04-10 15:02] LABS: ALANINE AMINOTRANSFERASE 28 U/L (12-78); ALBUMIN 4.4 G/DL (3.4-5.0); ALKALINE PHOSPHATASE 43 U/L (46-116); ASPARTATE AMINO TRANSFERASE 49 U/L (15-37); BILIRUBIN,TOTAL 0.2 MG/DL (0.2-1.0)
[2018-04-10 15:53] VITALS: BP 133/68
== END 2018-04-10 15:45 | disposition home or self-care (01) ==
LOC: EMR 14:24
DX: D64.9 Anemia, unspecified (principal); I10 Essential (primary) hypertension
CPT/HCPCS: 36415; 80053; 85007; 85025; 85610; 85730; 86850; 86900; 86901; 96361; 96365; 96375; 99284; C9113; J7050; 86920

== ENCOUNTER 2018-05-05 09:34 | Outpatient (CLI) | payer MEDICARE ==
[~2018-05-05] VITALS: Ht 188 cm; Wt 107.5 kg
[2018-05-05 10:35] VITALS: BP 135/71
[2018-05-05] MEDS ORDERED: FERROUS SULFAT325 MG ORAL (10:41)
--- NOTE | 2018-05-05 10:49 | GI Initial Consult Note ---
History of Present Illness General Date patient seen: May 05, 2018 Time patient seen: 10:44 Referring physician: Will RAMIREZ Reason for Consultation: Screening Colonoscopy Present Illness HPI 77 year old male patient presents today for screening colon. Last EGD/ colonoscopy was performed in 2012. Hx of anemia. In addition, the patient has c/o of occasional constipation. Ambulatory. NAD. Denies any unintentional weight loss or changes in dietary habits. No signs of abuse or neglect. Patient is not fall risk. Home Meds Active Scripts Aspirin* (ASPIRIN*) 81 Mg Tab.chew, 81 MG ORAL DAILY, #30 TAB Prov:Mavis Recinos NP 05/16/15 Reported Medications Ferrous Sulfate* (FERROUS SULFATE*) 325 Mg Tablet, 325 MG ORAL THREE TIMES A DAY , #90 TAB 0 Refills 05/05/18 Vitamin B Cmplx/Vit C/Folic AC (Nephro-Todd Tablet) 0.8 Mg Tablet, 1 TAB ORAL DAILY, #30 TAB 0 Refills 03/01/17 Folic Acid* (FOLIC ACID*) 1 Mg Tablet, 1 MG ORAL DAILY, TAB 03/01/17 Simvastatin (ZOCOR) 20 Mg Tablet, 20 MG ORAL BEDTIME, TAB 03/01/17 Tamsulosin Hcl (TAMSULOSIN HCL*) 0.4 Mg Cap.er.24h, 0.4 MG ORAL BEDTIME, CAP 03/01/17 Amlodipine Besylate* (AMLODIPINE BESYLATE*) 10 Mg Tablet, ORAL DAILY 03/12/15 Latanoprost* (XALATAN*) 2.5 Ml Drops, 1 DRP OP BEDTIME 03/12/15 Discontinued Reported Medications Ferrous Sulfate (HIGH POTENCY IRON) 134 Mg Tablet, 325 MG PO DAILY, TAB 03/01/17 Atenolol* (TENORMIN*) 25 Mg Tablet, ORAL DAILY 03/12/15 Lisinopril* (LISINOPRIL*) 40 Mg Tablet, ORAL DAILY 03/12/15 Fluticasone Propionate (Fluticasone Propionate) 1 Sprays Naspr, 2 SPRAYS NASAL BID 03/12/15 Atorvastatin Calcium* (LIPITOR*) 10 Mg Tablet, ORAL BEDTIME, TAB 03/12/15 Discontinued Scripts Prednisolone* (PRELONE*) 15 Mg/5 Ml Solution, 20 MG ORAL BEFORE DINNER for 30 Days, ML Prov:Ishaan Andujar MD 03/05/17 Prednisolone* (PRELONE*) 15 Mg/5 Ml Solution, 40 MG ORAL BEFORE BREAKFAST for 30 Days, #30 ML Prov:Ishaan Andujar MD 03/05/17 Med list reviewed/reconciled: Yes Allergies: Coded Allergies: No Known Allergies (Verified Allergy, Unknown, 01/16/10) Patient History History Provided By: Patient, Medical Record PMH Narrative BPH HTN Kidney disease anemia colonic polyps glaucoma No past surgical history. Family History Narrative Mother >> Anemia. Sister >> Anemia Social History: Reports: alcohol use - social, other - 1-2 weekly caffeine Review of Systems All Other Systems: negative except mentioned in HPI Physical Exam Vital Signs Date Time Temp Pulse Resp B/P (MAP) Pulse Ox O2 Delivery O2 Flow Rate FiO2 05/05/18 10:35 98.0 61 16 135/71 97 98.0 Sp02 EP Interpretation: reviewed, normal General Appearance: well appearing, no apparent distress, alert Head: normocephalic EENT: PERRL/EOMI, normal ENT inspection Neck: supple Respiratory: normal breath sounds, no respiratory distress Cardiovascular: normal rate Gastrointestinal: normal inspection, non tender, soft, normal bowel sounds, non -distended Rectal: deferred Genitourinary: deferred Musculoskeletal: normal inspection, back normal Neurologic: normal inspection, alert, oriented x3, responsive Psychiatric: normal inspection, judgement/insight normal, memory normal Skin: normal inspection, normal color, no rash, warm/dry, palpation normal, well hydrated Lymphatic: normal inspection, no adenopathy GI: Plan Problems: (1) Hx of colonic polyp (2) Anemia (3) BPH (benign prostatic hyperplasia) Plan Colonoscopy to be scheduled pending prior authorization. - CLD & (Nulytely/Suprep/Movi-Prep) prep instructions given and acknowledged by patient. - NPO @ ID day prior procedure explained. Seen with Dr. Barrow. Thank you for this patient referral. The patient was seen and examined at bedside and all new and available data was reviewed in the patients chart. I agree with the above findings, impression and plan. (Patient seen earlier today. Signature stamp does not reflect patient encounter time.). - MD Tisha Brown,[facility] CenterPete INTERNET SECURITY SPECIALIST May 05, 2018 10:48
== END 2018-05-05 10:04 | disposition home or self-care (01) ==
LOC: PAN 09:34
DX: K59.00 Constipation, unspecified (principal); Z86.010 Personal history of colon polyps; D64.9 Anemia, unspecified; N40.0 Benign prostatic hyperplasia without lower urinary tract symptoms; I12.9 Hypertensive chronic kidney disease with stage 1 through stage 4 chronic kidney disease, or unspecified chronic kidney disease; N18.9 Chronic kidney disease, unspecified
CPT/HCPCS: 99201

== ENCOUNTER 2018-06-19 08:51 | Day surgery (SDC) | payer MEDICARE ==
[2018-06-19] VITALS (7 sets, daily range): BP systolic 128–149; BP diastolic 70–82
[~2018-06-19] VITALS: Ht 188 cm; Wt 108.9 kg
[~2018-06-19 08:51] MED LIST changes: +FERROUS SULFAT325 MG ORAL
--- NOTE | 2018-06-19 09:34 | Pre-Procedure Note/Attestation ---
Pre-Procedure Note/Attestation Complete Prior to Procedure Planned Procedure: not applicable Procedure Narrative: colonoscopy Indications for Procedure Pre-Operative Diagnosis: screening Attestation I attest that I discussed the nature of the procedure; its benefits; risks and complications; and alternatives (and the risks and benefits of such alternatives ), prior to the procedure, with the patient (or the patient's legal herbicide service sales representative). I attest that, if there was a reasonable possibility of needing a blood transfusion, the patient (or the patient's legal herbicide service sales representative) was given the [facility] standardized written summary, pursuant to the [employer] [place] Blood Safety Act ([place] Health and Safety Code # 1645, as amended). I attest that I re-evaluated the patient just prior to the surgery and that there has been no change in the patient's H&P, except as documented below: Vinay Barrow MD Jun 19, 2018 09:34
--- NOTE | 2018-06-19 09:36 | Short Stay Surgery H&P ---
History of Present Illness History of Present Illness Chief Complaint see recent consult note HPI Koko Reis is a 78 year old male who was admitted on for Colon Screening, Anemia Patient History Allergies: Coded Allergies: No Known Allergies (Verified , 06/19/18) Medication History Scheduled Amlodipine Besylate* (Amlodipine Besylate*), ORAL DAILY, (Reported) Aspirin* (Aspirin*), 81 MG ORAL DAILY Ferrous Sulfate* (Ferrous Sulfate*), 325 MG ORAL THREE TIMES A DAY, (Reported) Folic Acid* (Folic Acid*), 1 MG ORAL DAILY, (Reported) Latanoprost* (Xalatan*), 1 DRP OP BEDTIME, (Reported) Simvastatin (Zocor), 20 MG ORAL BEDTIME, (Reported) Tamsulosin Hcl (Tamsulosin Hcl*), 0.4 MG ORAL BEDTIME, (Reported) Vitamin B Cmplx/Vit C/Folic AC (Nephro-Todd Tablet), 1 TAB ORAL DAILY, (Reported ) Physical Exam Vital Signs Last Vital Signs Date Time Temp Pulse Resp B/P (MAP) Pulse Ox O2 Delivery O2 Flow Rate FiO2 06/19/18 09:29 97.3 57 18 143/75 98 Room Air 97.3 Plan Attestation Are the patient's medical conditions optimized for surgery? Vinay Barrow MD Jun 19, 2018 09:36
[2018-06-19] MEDS ORDERED: Propofol 200mg/20ml IV ONE (10:00)
[2018-06-19] MEDS ORDERED: Atropine Inj 1mg/10ml Syr IV PRN (10:00)
[2018-06-19] MEDS ORDERED: Lidocaine 1% MPF 10mg/ml 5ml ONE (10:00)
[2018-06-19] MEDS ORDERED: Midazolam 2mg/2ml Inj IVP PRN (10:00)
[2018-06-19] MEDS ORDERED: DiphenhydrAMINE 50mg/ml Inj IVP PRN (10:00)
[2018-06-19] MEDS ORDERED: fentaNYL 100 mcg/2 mL IV PRN (10:00)
--- NOTE | 2018-06-19 10:26 | Endoscopy Procedure Note ---
Endoscopy Procedure Note General Indication for Procedure: anemia, screening colon Procedures Performed: flexible sigmoidoscopy, EGD Operative Findings/Diagnosis: poor colon prep, large para esoph hernia Specimen: yes Pt Tolerated Procedure Well: Yes Estimated Blood Loss: none Anesthesia Anesthesiologist: jessica dhillon Anesthesia: MAC Inserted Devices Implant(s) used?: No Quality Quality of Bowel Preparation: Poor Did scope reach the cecum?: No Why scope didn't reach cecum: Bowel preparation poor Was there any complications?: No GI Core Measures 50 yrs or older w/o bx or poly: No 10yrs. F/U not recommended: Yes If not recommended, why?: Above average risk 10 yrs. F/U needed: Yes 18 years or older w/prev. colo: No Vinay Barrow MD Jun 19, 2018 10:26
--- NOTE | 2018-06-19 11:04 | Anethesia Preoperative Eval ---
Anesthesia Pre-op PMH/ROS General Date of Evaluation: Jun 19, 2018 Time of Evaluation: 09:46 Anesthesiologist: ramandeep ASA Score: ASA 3 Mallampati Score Class I : Soft palate, uvula, fauces, pillars visible Class II: Soft palate, uvula, fauces visible Class III: Soft palate, base of uvula visible Class IV: Only hard plate visible Mallampati Classification: Class II Surgeon: maddie Diagnosis: anemia, colon screening Surgical Procedure: egd/colonoscopy Anesthesia History: none Social History: alcohol use Family History: no anesthesia problems Allergies: Coded Allergies: No Known Allergies (Verified , 06/19/18) Medications: see eMAR Past Medical History Cardiovascular: Reports: HTN Gastrointestinal/Genitourinary: Reports: other - renal disease Neurologic/Psychiatric: Reports: TIA HEENT: Reports: glaucoma Hematology/Immune: Reports: anemia Anesthesia Pre-op Phys. Exam Physician Exam Last Vital Signs Date Time Temp Pulse Resp B/P (MAP) Pulse Ox O2 Delivery O2 Flow Rate FiO2 06/19/18 10:45 55 18 134/75 96 Room Air 06/19/18 10:40 3 06/19/18 10:35 97.7 97.7 Constitutional: NAD Neurologic: CN 2-12 intact Cardiovascular: RRR Respiratory: CTA Gastrointestinal: S/NT/ND Airway Exam Mallampati Score: Class II MO: full Neck: flexible TMD: 2fb ROM: full Dentures: upper, lower Anesthesia Pre-op A/P Studies Pre-op Studies: EKG - sinus bradycardia, rbbb Risk Assessment & Plan Assessment: asa3 Plan: mac Status Change Before Surgery: No Pre-Antibiotics Drug: Linda Fountain MD Jun 19, 2018 11:04
--- NOTE | 2018-06-19 11:06 | Immediate Post-Op Evaluation ---
Immediate Post-Op Evalulation Immediate Post-Op Evalulation Procedure: egd/colonoscopy Date of Evaluation: Jun 19, 2018 Time of Evaluation: 09:46 IV Fluids: 350ml 0.9ns Blood Products: none Estimated Blood Loss: negligible Blood Pressure Systolic: 128 Blood Pressure Diastolic: 77 Pulse Rate: 56 Respiratory Rate: 18 O2 Sat by Pulse Oximetry: 99 Temperature (Fahrenheit): 97.7 Pain Score (1-10): 0 Nausea: No Vomiting: No Complications none Patient Status: awake, reacts, patent Hydration Status: adequate Drug: Linda Fountain MD Jun 19, 2018 11:06
--- NOTE | 2018-06-19 11:12 | 48 Hour Post Anesthesia Eval ---
Post Anesthesia Evaluation Procedure: egd/colonoscopy/bx Date of Evaluation: Jun 19, 2018 Time of Evaluation: 10:48 Blood Pressure Systolic: 134 0: 75 Pulse Rate: 55 Respiratory Rate: 18 Temperature (Fahrenheit): 97.7 O2 Sat by Pulse Oximetry: 99 Airway: patent Nausea: No Vomiting: No Pain Intensity: 0 Hydration Status: adequate Cardiopulmonary Status: stable Mental Status/LOC: patient returned to baseline Post-Anesthesia Complications: none Follow-up care needed: N/A Linda Dowell MD Jun 19, 2018 11:12
--- NOTE | 2018-06-19 16:45 | Procedure Note ---
DATE OF PROCEDURE: 06/19/2018 SURGEON: Vinay Barrow M.D. PROCEDURE: Upper endoscopy with biopsy and attempted colonoscopy only flexible was performed given a poor prep. REASON FOR PROCEDURE: The procedure, risks, benefits, and possible consequences, including hemorrhage, aspiration, perforation and infection, and alternative treatments, were explained to the patient/legal guardian by Dr. Vinay Barrow and the patient/legal guardian understood and accepted these risks. DESCRIPTION OF PROCEDURE: After informed consent was obtained and the patient was adequately sedated, Olympus upper endoscope was advanced from mouth into the second portion of the duodenum and retroflexion was performed in the stomach. The patient had evidence of a large paraesophageal hernia. There was no evidence of any obvious ulcerations, mass, or bleeding. Random biopsy from antrum and body was obtained to rule out H. pylori infection. At this time, the upper endoscope was retrieved and the patient was turned over for colonoscopy. First rectal exam was performed, which shows normal. Then, the scope was advanced from the rectum into the sigmoid colon. We could not pass the scope beyond this point given the extremely poor prep. The patient had solid stool in the colon, so we could not get the scope through. At this time, the procedure was terminated. SUMMARY OF FINDINGS: 1. Large paraesophageal hernia. 2. Gastritis, status post biopsy. 3. Poor colonic prep and incomplete colonoscopy examination. RECOMMENDATIONS: 1. Follow up biopsies and treat accordingly. 2. We recommend repeat colonoscopy with better prep. Vinay Barrow M.D. DR: KRISTY JOB#: [id number] CC:
--- NOTE | 2018-06-22 14:49 | Cardiology Report ---
APPROVED REPORT EKG Measurement Heart [id number] Sinus bradycardia Right bundle branch block Abnormal ECG
== END 2018-06-19 11:50 | disposition home or self-care (01) ==
LOC: GAS 08:51
DX: Z12.11 Encounter for screening for malignant neoplasm of colon (principal); D64.9 Anemia, unspecified; K29.70 Gastritis, unspecified, without bleeding; B96.81 Helicobacter pylori [H. pylori] as the cause of diseases classified elsewhere; K44.9 Diaphragmatic hernia without obstruction or gangrene; I10 Essential (primary) hypertension; R00.1 Bradycardia, unspecified; I45.10 Unspecified right bundle-branch block; H40.9 Unspecified glaucoma; N28.9 Disorder of kidney and ureter, unspecified; Z86.73 Personal history of transient ischemic attack (TIA), and cerebral infarction without residual deficits; Z79.82 Long term (current) use of aspirin
CPT/HCPCS: 43239; 93005; G0104; J2704; 94003; 94150

== ENCOUNTER 2018-09-07 08:28 | Emergency (ER) | payer MEDICARE ==
[~2018-09-07] VITALS: Ht 188 cm; Wt 102.1 kg
[2018-09-07] MEDS ORDERED: Acetaminophen 500mg (ES) tab PO ONE (09:15)
[2018-09-07] MEDS ORDERED: TYLENOL EXTRA500 MG ORAL (10:18)
--- NOTE | 2018-09-07 10:20 | Diagnostic Imaging Report ---
Indication: Right knee pain, history of prior injury Technique: 3 views of the right knee Comparison: None Findings: There is medial compartment degenerative joint space narrowing. No suprapatellar effusion. There is a superior pole patellar traction osteophyte. Impression: Degenerative changes. No acute bony trauma
--- NOTE | 2018-09-07 10:34 | Emergency Room Report ---
History of Present Illness General Chief Complaint: Lower Extremity Injury Source: Patient, Medical Record Present Illness HPI 78-year-old male presents ED for evaluation. Patient complaining of pain to the right knee. On and off for the several years. States he got worse a few days ago after he helped his sister move furniture. Pain is throbbing, 7 out of 10, nonradiating. States he is fairly active. Plays basketball and goes to the gym 3 times a week. States he is able to ambulate. Denies any other injuries. No other aggravating relieving factors. Denies any other associated symptoms Allergies: Coded Allergies: No Known Allergies (Verified , 06/19/18) Patient History Past Medical History: HTN Past Surgical History: none Pertinent Family History: none Social History: Denies: smoking, alcohol use, drug use Immunizations: UTD Reviewed Nursing Documentation: PMH: Agreed; PSxH: Agreed Nursing Documentation-PMH Past Medical History: No History, Except For Hx Cardiac Problems: Yes Hx Hypertension: Yes Hx Pacemaker: No Hx Asthma: No Hx COPD: No Hx Diabetes: No Hx Cancer: No Hx Gastrointestinal Problems: No Hx Dialysis: No Hx Neurological Problems: No Hx Cerebrovascular Accident: No Hx Seizures: No Review of Systems All Other Systems: negative except mentioned in HPI Physical Exam Vital Signs Date Time Temp Pulse Resp B/P (MAP) Pulse Ox O2 Delivery O2 Flow Rate FiO2 09/07/18 08:30 98.2 69 18 152/71 96 Room Air Sp02 EP Interpretation: reviewed, normal General Appearance: no apparent distress, alert, GCS 15, non-toxic Head: normocephalic Eyes: bilateral eye normal inspection, bilateral eye PERRL ENT: normal ENT inspection Neck: normal inspection Respiratory: normal inspection Cardiovascular #1: normal inspection Gastrointestinal: normal inspection Rectal: deferred Genitourinary: no CVA tenderness Musculoskeletal: normal range of motion, tender - R knee Neurologic: alert, oriented x3, responsive, motor strength/tone normal, sensory intact, speech normal Psychiatric: normal inspection Skin: normal inspection Lymphatic: normal inspection Procedures Splinting Splinting : Consent: Verbal Pre-Made Type: CLAUDIO wrap Pre-Proc Neuro Vasc Exam: normal Post-Proc Neuro Vasc Exam: normal Patient Tolerated: Well Complications: None Medical Decision Making Diagnostic Impression: Primary Impression: Knee pain Qualified Codes: M25.561 - Pain in right knee; G89.29 - Other chronic pain ER Course Hospital Course 78-year-old M presents to ED complaining of R knee pain Differential diagnoses include: Fracture, dislocation, sprain, contusion Clinical course Patient placed on stretcher. After initial history and physical, I ordered pain medications and Xrays of R knee Xrays read shows medial DJD. + ostephytes Discussed findings with patient. Consistent with osteoarthritis. Claudio wrap applied. Recommend ice, elevation, analgesics. Modified activity. I'll provide orthopedic referral. Safe for discharge and close outpatient follow-up with PMD Diagnosis - knee pain Stable and discharged to home with prescription for tylenol. apply ice, keep elevated. weight bear as tolerated. Followup with ortho. Return to ED if symptoms recur or worsen Other X-Ray Diagnostic Results Other X-Ray Diagnostic Results : X-Ray ordered: R knee # of Views/Limited Vs Complete: 3 View Indication: Pain EP Interpretation: Yes Interpretation: no dislocation, no soft tissue swelling, no fractures Impression: Other - Medial compartment degenerative joint space narrowing. Osteophytes Electronically Signed by: Electronically signed by Blaze Lopez MD Last Vital Signs Date Time Temp Pulse Resp B/P (MAP) Pulse Ox O2 Delivery O2 Flow Rate FiO2 09/07/18 09:36 98.3 09/07/18 08:30 69 18 152/71 96 Room Air Status: improved Disposition: HOME, SELF-CARE Condition: Stable Scripts Acetaminophen* (TYLENOL EXTRA STRENGTH*) 500 Mg Tablet 500 MG ORAL Q8H PRN for Prn Headache/Temp > 101, #30 TAB 0 Refills Prov: Blaze Lopez MD 09/07/18 Referrals: Portillo Quispe MD Patient Instructions: Arthritis, [id number] Blaze Lopez MD Sep 07, 2018 10:34
[2018-09-07 10:35] VITALS: BP 144/70
== END 2018-09-07 10:36 | disposition home or self-care (01) ==
LOC: EMR 09:04
DX: M25.561 Pain in right knee (principal); G89.29 Other chronic pain; I10 Essential (primary) hypertension
CPT/HCPCS: 99283

== ENCOUNTER 2018-10-26 05:42 | Day surgery (SDC) | payer MEDICARE ==
[~2018-10-26] VITALS: Ht 190.5 cm; Wt 104.3 kg
[2018-10-26] VITALS (7 sets, daily range): BP systolic 133–158; BP diastolic 71–89
[~2018-10-26 05:42] MED LIST changes: +TYLENOL EXTRA500 MG ORAL
[2018-10-26] MEDS ORDERED: Phenylephrine 10% Opth Soln 5ml RIGHT EYE SCH (06:00)
[2018-10-26] MEDS ORDERED: Diclofenac Sod 0.1% Op Soln RIGHT EYE SCH (06:00)
[2018-10-26] MEDS ORDERED: Tropicamide 1% Opth 15ml Soln RIGHT EYE SCH (06:00)
[2018-10-26] MEDS ORDERED: Ciprofloxacin Opth Soln 2.5ml RIGHT EYE SCH (06:00)
[2018-10-26] MEDS ORDERED: Akten 3.5% 1ml Btl RIGHT EYE SCH (06:00)
[2018-10-26] MEDS ORDERED: Cyclopentolate 1% Opth Sol 2ml RIGHT EYE SCH (06:00)
[2018-10-26] MEDS: Diclofenac Sod 0.1% Op Soln LEFT EYE SCH ×4 (06:29→07:04)
[2018-10-26] MEDS: Cyclopentolate 1% Opth Sol 2ml LEFT EYE SCH ×4 (06:29→07:04)
[2018-10-26] MEDS: Phenylephrine 10% Opth Soln 5ml LEFT EYE SCH ×4 (06:29→07:04)
[2018-10-26] MEDS: Akten 3.5% 1ml Btl LEFT EYE SCH ×4 (06:30→07:03)
[2018-10-26] MEDS: Tropicamide 1% Opth 15ml Soln LEFT EYE SCH ×4 (06:30→07:03)
[2018-10-26] MEDS: Ciprofloxacin Opth Soln 2.5ml LEFT EYE SCH ×4 (06:30→07:04)
[2018-10-26] MEDS ORDERED: NS Irrig 1000ml ONE (07:00)
[2018-10-26] MEDS ORDERED: Sterile Water For Irrig 2000ml IRRIG ONE (07:00)
[2018-10-26] MEDS ORDERED: Propofol 200mg/20ml IV ONE (07:00)
[2018-10-26] MEDS ORDERED: LR 1000ml ONE (07:00)
[2018-10-26] MEDS ORDERED: Lidocaine 1% MPF 10mg/ml 5ml ONE ×2 (07:00→07:09)
[2018-10-26] MEDS ORDERED: Midazolam 2mg/2ml Inj ONE (07:02)
[2018-10-26] MEDS ORDERED: Alfentanil 2ml Inj ONE (07:03)
[2018-10-26] MEDS ORDERED: EPINEPHrine 1mg/1ml Amp ONE ×2 (07:09→07:26)
[2018-10-26] MEDS ORDERED: Lidocaine 4% Amp ONE (07:09)
[2018-10-26] MEDS ORDERED: Carbachol 0.01% Op Soln 1.5ml vial ONE (07:09)
[2018-10-26] MEDS ORDERED: Pred Forte 1% Opth Susp 1ml ONE (07:10)
[2018-10-26] MEDS ORDERED: Dexamethasone 4mg/ml vial ONE (07:10)
[2018-10-26] MEDS ORDERED: Lidocaine 2% 20mg/ml/Epi 0.005mg/ml 20ml vial ONE (07:10)
[2018-10-26] MEDS ORDERED: BSS 500ml btl ONE (07:10)
[2018-10-26] MEDS ORDERED: Tobradex Opth Oint 3.5gm ONE (07:10)
[2018-10-26] MEDS ORDERED: Diclofenac Sod 0.1% Op Soln ONE (07:10)
[2018-10-26] MEDS ORDERED: Tetracaine 0.5% Opth 4ml Soln ONE (07:11)
[2018-10-26] MEDS ORDERED: BSS 15ml BTL ONE ×2 (07:11→07:27)
[2018-10-26] MEDS ORDERED: Povidone-Iodine 5% opth solution ONE ×2 (07:11→07:26)
[2018-10-26] MEDS ORDERED: Sodium Hyaluronate 14 mg/ml 0.85ml ONE (07:11)
[2018-10-26] MEDS ORDERED: Sodium Hyaluronate 10 mg/ml 0.85ml ONE (07:11)
[2018-10-26] MEDS ORDERED: LORazepam Inj 2mg/ml 1ml IV PRN (07:15)
[2018-10-26] MEDS ORDERED: Atropine Sulfate 0.4mg/ml inj IVP PRN (07:15)
[2018-10-26] MEDS ORDERED: oxyCODONE HCL/Acetaminophen 5/325mg ORAL PRN (07:15)
[2018-10-26] MEDS ORDERED: HYDROcodone/Acetamin 7.5/325 tab ORAL PRN (07:15)
[2018-10-26] MEDS ORDERED: Ketorolac 30mg Inj IV PRN ×2 (07:15)
[2018-10-26] MEDS ORDERED: Norco 5mg/325mg tab ORAL PRN (07:15)
[2018-10-26] MEDS ORDERED: LR 1000ml 1,000 ML IVLG SCH (07:15)
[2018-10-26] MEDS ORDERED: DiphenhydrAMINE 50mg/ml Inj IVP PRN (07:15)
[2018-10-26] MEDS ORDERED: Metoclopramide 10mg/2ml Inj IVP PRN (07:15)
[2018-10-26] MEDS ORDERED: Midazolam 2mg/2ml Inj IVP PRN (07:15)
[2018-10-26] MEDS ORDERED: Meperidine 50mg/ml Inj(FOR RIGORS ONLY) IVP PRN (07:15)
[2018-10-26] MEDS ORDERED: fentaNYL 100 mcg/2 mL IV PRN (07:15)
[2018-10-26] MEDS ORDERED: Hydromorphone 0.5mg/0.5ml inj IVP PRN (07:15)
--- NOTE | 2018-10-26 07:18 | Anethesia Preoperative Eval ---
Anesthesia Pre-op PMH/ROS General Date of Evaluation: Oct 26, 2018 Time of Evaluation: 07:19 Anesthesiologist: Peace ASA Score: ASA 3 Mallampati Score Class I : Soft palate, uvula, fauces, pillars visible Class II: Soft palate, uvula, fauces visible Class III: Soft palate, base of uvula visible Class IV: Only hard plate visible Mallampati Classification: Class II Surgeon: Analilia Diagnosis: Cataract OS Surgical Procedure: Cat Ext IOL OS Anesthesia History: none Family History: no anesthesia problems Allergies: Coded Allergies: No Known Allergies (Verified , 06/19/18) Medications: see eMAR Patient NPO?: Yes Past Medical History Cardiovascular: Reports: HTN, other - HL Gastrointestinal/Genitourinary: Reports: CRI HEENT: Reports: cataract (L), cataract (R), glaucoma - Bilateral Hematology/Immune: Reports: anemia Other: obesity - BMI 31 Anesthesia Pre-op Phys. Exam Physician Exam Last Vital Signs Date Time Temp Pulse Resp B/P (MAP) Pulse Ox O2 Delivery O2 Flow Rate FiO2 10/26/18 07:06 Room Air 10/26/18 06:38 97.2 62 18 147/82 100 Constitutional: NAD Neurologic: CN 2-12 intact Cardiovascular: RRR Respiratory: CTA Gastrointestinal: S/NT/ND Airway Exam Mallampati Score: Class II MO: limited ROM: limited Teeth: missing, intact Anesthesia Pre-op A/P Risk Assessment & Plan Assessment: ASA 3 Plan: GA Status Change Before Surgery: Spencer Chahal MD Oct 26, 2018 07:18
[2018-10-26] MEDS ORDERED: Ciprofloxacin Opth Soln 2.5ml ONE (07:26)
--- NOTE | 2018-10-26 07:30 | Pre-Procedure Note/Attestation ---
Pre-Procedure Note/Attestation Complete Prior to Procedure Planned Procedure: left Procedure Narrative: Cataract extraction with lens implant Indications for Procedure Pre-Operative Diagnosis: Poor vision Attestation I attest that I discussed the nature of the procedure; its benefits; risks and complications; and alternatives (and the risks and benefits of such alternatives ), prior to the procedure, with the patient (or the patient's legal accounts receivable representative). I attest that, if there was a reasonable possibility of needing a blood transfusion, the patient (or the patient's legal accounts receivable representative) was given the [facility] Health Services standardized written summary, pursuant to the [place] Blood Safety Act ([place] Health and Safety Code # 1645, as amended). I attest that I re-evaluated the patient just prior to the surgery and that there has been no change in the patient's H&P, except as documented below: Pavel Billingsley MD Oct 26, 2018 07:30
--- NOTE | 2018-10-26 07:33 | 48 Hour Post Anesthesia Eval ---
Post Anesthesia Evaluation Procedure: Cat Ext IOL OS Date of Evaluation: Oct 26, 2018 Time of Evaluation: 11:22 Blood Pressure Systolic: 162 0: 83 Pulse Rate: 67 Respiratory Rate: 18 Temperature (Fahrenheit): 98.1 O2 Sat by Pulse Oximetry: 100 Airway: patent Nausea: No Vomiting: No Pain Intensity: 1 Hydration Status: adequate Cardiopulmonary Status: Stable Mental Status/LOC: patient returned to baseline Follow-up Care/Observations: 0 Post-Anesthesia Complications: 0 Follow-up care needed: ready to discharge Spencer Hand MD Oct 26, 2018 07:33
--- NOTE | 2018-10-26 07:33 | Immediate Post-Op Evaluation ---
Immediate Post-Op Evalulation Immediate Post-Op Evalulation Procedure: Cat Ext IOL OS Date of Evaluation: Oct 26, 2018 Time of Evaluation: 09:09 IV Fluids: 400 LR Blood Products: 0 Estimated Blood Loss: 1 Urinary Output: 0 Blood Pressure Systolic: 160 Blood Pressure Diastolic: 81 Pulse Rate: 61 Respiratory Rate: 16 O2 Sat by Pulse Oximetry: 100 Temperature (Fahrenheit): 97.1 Pain Score (1-10): 1 Nausea: No Vomiting: No Complications 0 Patient Status: awake, reacts, patent, none Hydration Status: adequate Spencer Hand MD Oct 26, 2018 07:33
--- NOTE | 2018-10-28 23:30 | Operative Note - Dictated ---
DATE OF OPERATION: 10/26/2018 SURGEON: Pavel Billingsley M.D. MORTARMAN: None. ANESTHESIA: MAC by Dr. Santos. PREOPERATIVE DIAGNOSES: 1. 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 2. Chronic open-angle glaucoma. POSTOPERATIVE DIAGNOSES: 1. 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 2. Chronic open-angle glaucoma. PRINCIPAL PROCEDURE: Phacoemulsification with primary implantation of posterior chamber intraocular lens, left eye. DESCRIPTION OF PROCEDURE: The patient was evaluated in my office for sometime in management of his chronic open eye glaucoma with topical medications. He has been complaining of gradually decrease in vision associated with increasing cataract. After discussing risks, benefits, and alternatives, he elected to proceed with cataract extraction initially in the left eye. Risks, benefits, and alternatives were discussed. Informed consent was obtained. The patient was therefore brought to the [facility] where the left pupil was dilated and an intravenous line was started. He was brought into the operating room where ocular anesthesia was obtained with topical drops supplemented with intravenous sedation. The left eye was then prepped and draped in the usual fashion for intraocular surgery. A clear corneal temporal incision was made in the anterior chamber filled with Shugarcaine and viscoelastic. A continuous tear capsulotomy was accomplished. Hydrodissection was utilized to facilitate phacoemulsification. A two-handed phacoemulsification technique was then used to fracture the lens nucleus into quadrants and the segments removed in sequence. Irrigation/aspiration hand piece was used to remove all residual lens cortex and czech the posterior capsule. Viscoelastic was introduced. Intraocular lens from [employer], model ZCB00 with a power of 17.5 diopters was folded into the lens insertion cartridge, injected into the posterior chamber of the eye and positioned within the capsular bag. The viscoelastic was removed. The wound was adjusted, made watertight without sutures. The intraocular pressure was adjusted to normal. One drop of 10% Betadine, one drop of prednisolone acetate, and one drop of TobraDex was placed on the eye. The eye was covered with an eye shield. This completed the procedure. All sponge and needle counts were correct. The patient was taken to the [facility] in a good condition having tolerated the procedure well. Pavel Billingsley M.D. DR: Jenifer JOB#: [id number] CC: Arnold Burgess M.D.; Fax#: [phone]
== END 2018-10-26 10:30 | disposition home or self-care (01) ==
LOC: SUR 05:42
DX: H25.812 Combined forms of age-related cataract, left eye (principal); H40.1190 Primary open-angle glaucoma, unspecified eye, stage unspecified; I10 Essential (primary) hypertension; N40.0 Benign prostatic hyperplasia without lower urinary tract symptoms; E78.5 Hyperlipidemia, unspecified; D64.9 Anemia, unspecified; D46.9 Myelodysplastic syndrome, unspecified; R00.1 Bradycardia, unspecified; I45.10 Unspecified right bundle-branch block; E66.9 Obesity, unspecified; Z68.31 Body mass index [BMI] 31.0-31.9, adult
CPT/HCPCS: 66984; J0171; J1100; J2250; J2704; J3370; J3490; V2632; 94003; 94150

== ENCOUNTER 2018-11-30 05:32 | Day surgery (SDC) | payer MEDICARE ==
[~2018-11-30] VITALS: Ht 190.5 cm; Wt 104.3 kg
[2018-11-30] VITALS (9 sets, daily range): BP systolic 107–152; BP diastolic 58–74
[2018-11-30] MEDS: Cyclopentolate 1% Opth Sol 2ml RIGHT EYE SCH ×4 (06:06→06:44)
[2018-11-30] MEDS: Akten 3.5% 1ml Btl RIGHT EYE SCH ×4 (06:06→06:43)
[2018-11-30] MEDS: Ciprofloxacin Opth Soln 2.5ml RIGHT EYE SCH ×4 (06:06→06:44)
[2018-11-30] MEDS: Phenylephrine 10% Opth Soln 5ml RIGHT EYE SCH ×4 (06:06→06:44)
[2018-11-30] MEDS: Diclofenac Sod 0.1% Op Soln RIGHT EYE SCH ×4 (06:07→06:44)
[2018-11-30] MEDS ORDERED: Sterile Water Irrig 1000ml IRRIG ONE ×2 (07:00→07:24)
[2018-11-30] MEDS ORDERED: LR 1000ml ONE ×2 (07:00→07:24)
[2018-11-30] MEDS ORDERED: NS Irrig 1000ml ONE ×2 (07:00→07:24)
[2018-11-30] MEDS ORDERED: fentaNYL 100 mcg/2 mL IV ONE (07:03)
[2018-11-30] MEDS ORDERED: Propofol 200mg/20ml IV ONE (07:03)
--- NOTE | 2018-11-30 07:03 | Pre-Procedure Note/Attestation ---
Pre-Procedure Note/Attestation Attestation I attest that I discussed the nature of the procedure; its benefits; risks and complications; and alternatives (and the risks and benefits of such alternatives ), prior to the procedure, with the patient (or the patient's legal customer service representative teller). I attest that, if there was a reasonable possibility of needing a blood transfusion, the patient (or the patient's legal customer service representative teller) was given the [facility] of Health Services standardized written summary, pursuant to the [place] Blood Safety Act ([place] Health and Safety Code # 1645, as amended). I attest that I re-evaluated the patient just prior to the surgery and that there has been no change in the patient's H&P, except as documented below: Pavel Billingsley MD Nov 30, 2018 07:03
--- NOTE | 2018-11-30 07:05 | Pre-Procedure Note/Attestation ---
Pre-Procedure Note/Attestation Complete Prior to Procedure Planned Procedure: right Procedure Narrative: right Cataract with Intraocular Lens Indications for Procedure Pre-Operative Diagnosis: Cataract right eye Attestation I attest that I discussed the nature of the procedure; its benefits; risks and complications; and alternatives (and the risks and benefits of such alternatives ), prior to the procedure, with the patient (or the patient's legal motor vehicle field representative). I attest that, if there was a reasonable possibility of needing a blood transfusion, the patient (or the patient's legal motor vehicle field representative) was given the [facility] of Health Services standardized written summary, pursuant to the [place] Blood Safety Act ([place] Health and Safety Code # 1645, as amended). I attest that I re-evaluated the patient just prior to the surgery and that there has been no change in the patient's H&P, except as documented below: Pavel Billingsley MD Nov 30, 2018 07:05
[2018-11-30] MEDS ORDERED: Lidocaine 4% Amp ONE (07:16)
[2018-11-30] MEDS ORDERED: EPINEPHrine 1mg/1ml Amp ONE (07:16)
[2018-11-30] MEDS ORDERED: Pred Forte 1% Opth Susp 1ml ONE (07:16)
[2018-11-30] MEDS ORDERED: Carbachol 0.01% Op Soln 1.5ml vial ONE (07:16)
[2018-11-30] MEDS ORDERED: Lidocaine 1% MPF 10mg/ml 5ml ONE (07:16)
[2018-11-30] MEDS ORDERED: Tobradex Opth Oint 3.5gm ONE (07:16)
[2018-11-30] MEDS ORDERED: Lidocaine 2% 20mg/ml/Epi 0.005mg/ml 20ml vial ONE (07:16)
[2018-11-30] MEDS ORDERED: Dexamethasone 4mg/ml vial ONE (07:17)
[2018-11-30] MEDS ORDERED: BSS 500ml btl ONE (07:17)
[2018-11-30] MEDS ORDERED: Povidone-Iodine 5% opth solution ONE (07:17)
[2018-11-30] MEDS ORDERED: BSS 15ml BTL ONE ×2 (07:17→07:58)
[2018-11-30] MEDS ORDERED: Tetracaine 0.5% Opth 4ml Soln ONE (07:17)
[2018-11-30] MEDS ORDERED: Sodium Hyaluronate 14 mg/ml 0.85ml ONE (07:18)
[2018-11-30] MEDS ORDERED: Sodium Hyaluronate 10 mg/ml 0.85ml ONE (07:18)
[2018-11-30] MEDS ORDERED: LR 1000ml 1,000 ML IVLG SCH (07:49)
--- NOTE | 2018-11-30 07:49 | Anethesia Preoperative Eval ---
Anesthesia Pre-op PMH/ROS General Date of Evaluation: Nov 30, 2018 Time of Evaluation: 07:15 Anesthesiologist: Hong ASA Score: ASA 3 Mallampati Score Class I : Soft palate, uvula, fauces, pillars visible Class II: Soft palate, uvula, fauces visible Class III: Soft palate, base of uvula visible Class IV: Only hard plate visible Mallampati Classification: Class II Surgeon: Analilia Diagnosis: R eye cataract Surgical Procedure: R eye cataract extraction Anesthesia History: none Family History: no anesthesia problems Allergies: Coded Allergies: No Known Allergies (Verified , 11/27/18) Medications: see eMAR Patient NPO?: Yes Past Medical History Cardiovascular: Reports: HTN; Denies: CAD, SD, valve dz, arrhythmia, other Pulmonary: Denies: asthma, COPD, ALENA, other Gastrointestinal/Genitourinary: Reports: GERD, CRI, other - BPH; Denies: ESRD Neurologic/Psychiatric: Reports: TIA; Denies: dementia, CVA, depression/anxiety, other Endocrine: Denies: DM, hypothyroidism, steroids, other HEENT: Reports: cataract (L), cataract (R), glaucoma; Denies: TOGIAK (L), TOGIAK (R), other Hematology/Immune: Reports: anemia; Denies: DVT, bleeding disorder, other Musculoskeletal/Integumentary: Denies: OA, RA, DJD, DDD, edema, other PMH Narrative: as above PSxH Narrative: see H&P Anesthesia Pre-op Phys. Exam Physician Exam Last Vital Signs Date Time Temp Pulse Resp B/P (MAP) Pulse Ox O2 Delivery O2 Flow Rate FiO2 11/30/18 06:12 97.5 66 20 118/68 97 Room Air Constitutional: NAD Neurologic: CN 2-12 intact Cardiovascular: RRR, no M/R/G Respiratory: CTA Gastrointestinal: S/NT/ND Airway Exam Mallampati Score: Class II MO: limited Neck: stiff ROM: limited Teeth: missing Dentures: no upper, no lower Anesthesia Pre-op A/P Labs see chart Studies Pre-op Studies: EKG - SR Risk Assessment & Plan Assessment: ASA 3 Plan: MAC Status Change Before Surgery: No Pre-Antibiotics Drug: none Denton Pitts MD Nov 30, 2018 07:49
[2018-11-30] MEDS ORDERED: fentaNYL 100 mcg/2 mL IV PRN (08:00)
--- NOTE | 2018-11-30 08:24 | Immediate Post-Op Evaluation ---
Immediate Post-Op Evalulation Immediate Post-Op Evalulation Procedure: R eye cataract extraction with IOL Date of Evaluation: Nov 30, 2018 Time of Evaluation: 08:23 IV Fluids: 300 Blood Products: none Estimated Blood Loss: none Urinary Output: none Blood Pressure Systolic: 132 Blood Pressure Diastolic: 70 Pulse Rate: 64 Respiratory Rate: 20 O2 Sat by Pulse Oximetry: 98 Temperature (Fahrenheit): 97.7 Pain Score (1-10): 1 Nausea: No Vomiting: No Complications none Patient Status: awake, patent, none Hydration Status: adequate Denton Pitts MD Nov 30, 2018 08:24
--- NOTE | 2018-11-30 08:28 | Operative Note - PDOC ---
Operative Note Operative Note Date of Operation/Procedure: Nov 30, 2018 Chief Complaint: Poor vision, right eye Pre-op Diagnosis: Cataract right eye Procedure: Cataract extraction with intraocular lens, right eye Post-op Diagnosis: Same Post-op Diagnosis: same as pre-op Surgeon: Pavel Billingsley Impregnator Helper: Sebas Anesthesiologist: Hong Anesthesia: MAC Specimen: none Complications: none Condition: stable Estimated Blood Loss: none Drains: none Packing: None Implant(s) used?: Yes Indications for Procedure Poor vision, right eye Description of Procedure See dictated note Pavel Billingsley MD Nov 30, 2018 08:28
--- NOTE | 2018-11-30 10:42 | 48 Hour Post Anesthesia Eval ---
Post Anesthesia Evaluation Procedure: R eye cataract extraction with IOL Date of Evaluation: Nov 30, 2018 Time of Evaluation: 10:41 Blood Pressure Systolic: 148 0: 74 Pulse Rate: 68 Respiratory Rate: 20 Temperature (Fahrenheit): 97.6 O2 Sat by Pulse Oximetry: 98 Airway: patent Nausea: No Vomiting: No Pain Intensity: 1 Hydration Status: adequate Cardiopulmonary Status: stable Mental Status/LOC: patient returned to baseline Follow-up Care/Observations: n/a Post-Anesthesia Complications: none Follow-up care needed: ready to discharge Denton Pitts MD Nov 30, 2018 10:42
--- NOTE | 2018-11-30 19:45 | Operative Note - Dictated ---
DATE OF OPERATION: 12/01/2018 SURGEON: Pavel Billingsley M.D. MACHINIST AUTOMOTIVE: None. ANESTHESIA: MAC by Dr. Pitts. PREOPERATIVE DIAGNOSES: 1. 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 2. Glaucoma, both eyes. 3. Pseudophakia, left eye. POSTOPERATIVE DIAGNOSES: 1. 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 2. Glaucoma, both eyes. 3. Pseudophakia, left eye. PRINCIPAL PROCEDURE: Phacoemulsification with primary implantation of posterior chamber intraocular lens, right eye. DESCRIPTION OF PROCEDURE: The patient was evaluated in my office for sometime with management of his chronic open eye glaucoma successfully with topical medications. More recently, he has been complaining gradual decreasing vision cataract extraction in his left eye approximately 5 weeks ago. After discussing risks, benefits, and alternatives, informed consent was obtained to proceed with cataract extraction in the right eye. The patient was therefore brought to the [facility] where the right pupil was dilated and an intravenous line was started. He was brought into the operating room where ocular anesthesia was obtained with topical drops supplemented with intravenous sedation. The right eye was then prepped and draped in the usual fashion for intraocular surgery. A clear corneal temporal incision was made in the anterior chamber filled with Shugarcaine and viscoelastic. A continuous tear capsulotomy was created. Hydrodissection was utilized to facilitate phacoemulsification. A two-handed phacoemulsification technique was then used to fracture the lens nucleus into quadrants and the segments removed in sequence. The irrigation/aspiration hand piece was used to remove all residual lens cortex and cymraes the posterior capsule. Viscoelastic was introduced. Intraocular lens from [employer], model ZCB00 with a power of 18.0 diopters was folded into the lens insertion cartridge, injected into the posterior chamber of the eye and positioned within the capsular bag. The viscoelastic was removed. The wound was adjusted, made watertight without sutures. The intraocular pressure was adjusted to normal. One drop of 10% Betadine, one drop of prednisolone acetate, and one drop of TobraDex was placed on the eye. The eye was covered with an eye shield. This completed the procedure. All sponge and needle counts were correct. The patient was taken to the [facility] in a good condition having tolerated the procedure well. Pavel Billingsley M.D. DR: LILIANA JOB#: [id number] CC: Gilbert Garcia M.D.
== END 2018-11-30 09:35 | disposition home or self-care (01) ==
LOC: SUR 05:32
DX: H25.811 Combined forms of age-related cataract, right eye (principal); H40.9 Unspecified glaucoma; I10 Essential (primary) hypertension; E78.5 Hyperlipidemia, unspecified; N40.0 Benign prostatic hyperplasia without lower urinary tract symptoms; K21.9 Gastro-esophageal reflux disease without esophagitis; I12.9 Hypertensive chronic kidney disease with stage 1 through stage 4 chronic kidney disease, or unspecified chronic kidney disease; N18.9 Chronic kidney disease, unspecified; D64.9 Anemia, unspecified; Z96.1 Presence of intraocular lens; Z86.73 Personal history of transient ischemic attack (TIA), and cerebral infarction without residual deficits
CPT/HCPCS: 66984; J0171; J1100; J2704; J3010; J3370; V2632; 94003; 94150

== ENCOUNTER 2019-01-07 00:19 | Emergency (ER) | payer MEDICARE, OTHER ==
[~2019-01-07] VITALS: Ht 190.5 cm; Wt 104.3 kg
[2019-01-07 00:30] VITALS: BP 159/79
[2019-01-07] MEDS ORDERED: ZOCOR20 M1 ORAL (00:31)
[2019-01-07] MEDS ORDERED: Oxymetazoline 0.05% Na Spray 30ml NASAL ONE (00:45)
--- NOTE | 2019-01-07 01:04 | Emergency Room Report ---
History of Present Illness General Chief Complaint: Nosebleed Source: Patient Present Illness HPI Patient is a 78-year-old male brought in by self after increased nasal bleeding. Patient reports having small amount of bleeding over the past few days which had worsened today. Patient placed a nasal packing which subsequently controlled the bleeding. He had prior history of hypertension. He denies any other locations of bleeding. He reports having some prior history of anemia Allergies: Coded Allergies: No Known Allergies (Verified , 11/27/18) Patient History Reviewed Nursing Documentation: PMH: Agreed; PSxH: Agreed Nursing Documentation-PMH Past Medical History: No History, Except For Hx Cardiac Problems: Yes - anemic Hx Hypertension: Yes Hx Pacemaker: No Hx Asthma: No Hx COPD: No Hx Diabetes: No Hx Cancer: No Hx Gastrointestinal Problems: No Hx Dialysis: No Hx Neurological Problems: No Hx Cerebrovascular Accident: No Hx Seizures: No Review of Systems All Other Systems: negative except mentioned in HPI Physical Exam Vital Signs Date Time Temp Pulse Resp B/P (MAP) Pulse Ox O2 Delivery O2 Flow Rate FiO2 01/07/19 00:26 97.9 72 18 159/79 96 Room Air General Appearance: well appearing, no apparent distress, alert, GCS 15 Head: normocephalic, atraumatic ENT: hearing grossly normal, normal voice, other - right nare with packing without active bleeding. septum with hole Neck: full range of motion, supple Respiratory: no respiratory distress, speaking full sentences Cardiovascular #1: normal inspection, regular rate, rhythm, no edema Gastrointestinal: normal inspection, normal bowel sounds, non tender, soft Musculoskeletal: normal inspection, no calf tenderness Neurologic: normal inspection, alert, oriented x3, responsive, normal gait Psychiatric: mood/affect normal Skin: no rash Medical Decision Making Diagnostic Impression: Primary Impression: Anterior epistaxis Additional Impression: DEVIATED NASAL SEPTUM ER Course Patient presented for nosebleed. Differential diagnosis included was not limited to anterior epistaxis, posterior epistaxis, coagulopathy, anemia among others. Patient has a benign exam and does not appear to require any further imaging or laboratory testing at this time. Patient was noted to have recent blood test with improved anemia. Patient states that he had been taking aspirin is not on any other anticoagulation. Patient right nare was empirically packed with an anterior pack.Patient was advised packing removal in 24 hours. Last Vital Signs Date Time Temp Pulse Resp B/P (MAP) Pulse Ox O2 Delivery O2 Flow Rate FiO2 01/07/19 00:26 97.9 72 18 159/79 96 Room Air Status: improved Disposition: HOME, SELF-CARE Condition: Stable Referrals: NOT CHOSEN IPA/,REFERRING (PCP) Garret Martínez MD Jan 07, 2019 01:04
[2019-01-07 01:15] VITALS: BP 152/72
[2019-01-09] MEDS ORDERED: AUGMENTIN 875-1 EAC1 ORAL (11:56)
== END 2019-01-07 01:15 | disposition home or self-care (01) ==
LOC: EMR 00:43
DX: R04.0 Epistaxis (principal); J34.2 Deviated nasal septum; I10 Essential (primary) hypertension
CPT/HCPCS: 99283

== ENCOUNTER 2019-01-09 10:44 | Emergency (ER) | payer MEDICARE ==
[~2019-01-09] VITALS: Ht 190.5 cm; Wt 104.3 kg
[~2019-01-09 10:44] MED LIST changes: +ZOCOR20 M1 ORAL
--- NOTE | 2019-01-09 11:14 | Emergency Room Report ---
History of Present Illness General Chief Complaint: Nosebleed Source: Patient Present Illness HPI Patient presents for evaluation of his right nose bleeding Patient was here several days ago had packing Reports that the bleeding had stopped yesterday the packing had been removed by the patient himself Today he reports that he felt that he needed to blow his nose and when he did he again experienced bleeding from the right nostril Patient had placed a packing gauze and presents to the ER Denies any chest pain or shortness of breath denies any vomiting Denies any sensation of bleeding or trickling of the back of his throat at this time Patient was recently on aspirin and other medications however denies any lightheadedness fatigue or near syncopal episodes Allergies: Coded Allergies: No Known Allergies (Verified , 01/09/19) Patient History Past Medical History: see triage record Pertinent Family History: none Reviewed Nursing Documentation: PMH: Agreed; PSxH: Agreed Nursing Documentation-PM Past Medical History: No History, Except For Hx Cardiac Problems: Yes - anemic Hx Hypertension: Yes Hx Pacemaker: No Hx Asthma: No Hx COPD: No Hx Diabetes: No Hx Cancer: No Hx Gastrointestinal Problems: No Hx Dialysis: No Hx Neurological Problems: No Hx Cerebrovascular Accident: No Hx Seizures: No Review of Systems All Other Systems: negative except mentioned in HPI Physical Exam Vital Signs Date Time Temp Pulse Resp B/P (MAP) Pulse Ox O2 Delivery O2 Flow Rate FiO2 01/09/19 10:51 97.9 70 16 137/66 96 Room Air Sp02 EP Interpretation: reviewed, normal General Appearance: well appearing, no apparent distress Head: normocephalic, atraumatic Eyes: bilateral eye PERRL, bilateral eye EOMI ENT: hearing grossly normal, normal pharynx, TMs + canals normal, uvula midline , other - Left nostril is clear the right side shows a gauze in the anterior chamber, without any evidence of bleeding throat is clear also without any evidence of blood Neck: full range of motion, supple, no meningismus, no bony tend Respiratory: lungs clear, normal breath sounds, no rhonchi, no respiratory distress, no retraction, no accessory muscle use Cardiovascular #1: normal peripheral pulses, regular rate, rhythm, no edema, no gallop, no JVD, no murmur Gastrointestinal: normal bowel sounds, non tender, soft, no mass, no organomegaly, non-distended, no guarding, no hernia, no pulsatile mass, no rebound Musculoskeletal: normal inspection Neurologic: oriented x3, responsive, electronics engineering technician III-XII nml as tested, motor strength/ tone normal, sensory intact Psychiatric: mood/affect normal Skin: normal color, no rash, warm/dry, palpation normal Lymphatic: normal inspection, no adenopathy Medical Decision Making Diagnostic Impression: Primary Impression: Epistaxis ER Course With the patient's presentation the bleeding has already stopped There is a small packing in place Patient's blood pressure and other exams are at baseline levels given the patient's packing oral antibiotic was given as well And patient will have initial conservative outpatient trial Last Vital Signs Date Time Temp Pulse Resp B/P (MAP) Pulse Ox O2 Delivery O2 Flow Rate FiO2 01/09/19 10:51 97.9 70 16 137/66 96 Room Air Status: improved Disposition: HOME, SELF-CARE Condition: Improved Scripts Amoxicillin/Potassium Clav 875-125* (AUGMENTIN 875-125 TABLET*) 1 Each Tablet 1 TAB ORAL TWICE A DAY for 3 Days, #6 TAB Prov: Gennaro Fleming DO 01/09/19 Additional Instructions: Patient is provided with the discharge instructions notified to follow up with primary doctor in the next 2-3 days otherwise return to the er with any worsening symptoms. Please note that this report is being documented using [employer] technology. This can lead to erroneous entry secondary to incorrect interpretation by the dictating instrument. Gennaro Fleming DO Jan 09, 2019 11:14
[2019-01-09] MEDS ORDERED: Augmentin 875mg Tab ORAL ONE (11:15)
[2019-01-09 11:24] VITALS: BP 128/68
[2019-01-09] MEDS ORDERED: AUGMENTIN 875-1 EAC1 ORAL ×2 (11:56)
[2019-01-09 12:22] VITALS: BP 128/68
== END 2019-01-09 12:22 | disposition home or self-care (01) ==
LOC: EMR 11:14
DX: R04.0 Epistaxis (principal); I10 Essential (primary) hypertension
CPT/HCPCS: 99282

== ENCOUNTER 2019-01-26 09:12 | Outpatient (CLI) | payer MEDICARE ==
[~2019-01-26 09:12] MED LIST changes: +AUGMENTIN 875-1 EAC1 ORAL
[2019-01-26 10:00] VITALS: BP 113/55
--- NOTE | 2019-01-26 10:19 | General Progress Note ---
Assessment/Plan Problem List: (1) H. pylori infection ICD Codes: A04.8 - Other specified bacterial intestinal infections SNOMED: 347880364 (2) Gastritis ICD Codes: K29.70 - Gastritis, unspecified, without bleeding SNOMED: 0043973 (3) Hx of colonic polyp ICD Codes: Z86.010 - Personal history of colonic polyps SNOMED: 661800891 (4) Anemia ICD Codes: D64.9 - Anemia SNOMED: 338429923 (5) BPH (benign prostatic hyperplasia) ICD Codes: N40.0 - Benign prostatic hyperplasia without lower urinary tract symptoms SNOMED: 198394727, 334704968 (6) HTN (hypertension) ICD Codes: I10 - Essential (primary) hypertension SNOMED: 48547826 Assessment/Plan: BT for HP post treatment plan repeat colonoscopy Subjective ROS Limited/Unobtainable: Yes Allergies: Coded Allergies: No Known Allergies (Verified , 01/09/19) Objective General Appearance: alert EENT: normal ENT inspection Neck: supple Cardiovascular: normal rate Respiratory/Chest: lungs clear Abdomen: normal bowel sounds, non tender, soft Extremities: non-tender Vinay Barrow MD January 26, 2019 10:19
== END 2019-01-26 13:49 | disposition home or self-care (01) ==
LOC: PAN 09:12
DX: K29.70 Gastritis, unspecified, without bleeding (principal); A04.8 Other specified bacterial intestinal infections; Z86.010 Personal history of colon polyps; D64.9 Anemia, unspecified; N40.0 Benign prostatic hyperplasia without lower urinary tract symptoms; I10 Essential (primary) hypertension

== ENCOUNTER 2019-07-22 20:07 | Emergency (ER) | payer MEDICARE, OTHER ==
[~2019-07-22] VITALS: Ht 190.5 cm; Wt 104.3 kg
--- NOTE | 2019-07-22 20:15 | NUR ---
ED Nurse Note: Patient walked in to ER c/o high BP at home. Patient presented calm, with non-labored breathing, BP 148/75 at bed side. AAO x4, VSS at this time, skin is dry warm to touch.
[2019-07-22] MEDS ORDERED: OMEPRAZOLE40 M1 ORAL (20:16)
[2019-07-22] MEDS ORDERED: LISINOPRIL20 MG ORAL (20:16)
[2019-07-22 20:20] VITALS: BP 134/66
--- NOTE | 2019-07-22 20:37 | Emergency Room Report ---
History of Present Illness General Chief Complaint: General Complaint Source: Patient Present Illness HPI 79-year-old male history of hypertension presents with random hypertensive readings greater than 140, patient after dinner checked his blood pressure, asymptomatic no chest pain no shortness of breath no double vision, no headache , unknown aggravating relieving factors severity was mild, patient presents for evaluation. Allergies: Coded Allergies: No Known Allergies (Verified , 01/09/19) Patient History Past Medical History: see triage record Reviewed Nursing Documentation: PMH: Agreed; PSxH: Agreed Nursing Documentation-PMH Hx Cardiac Problems: Yes - anemic Hx Hypertension: Yes Hx Pacemaker: No Hx Asthma: No Hx COPD: No Hx Diabetes: No Hx Cancer: No Hx Gastrointestinal Problems: No Hx Dialysis: No Hx Neurological Problems: No Hx Cerebrovascular Accident: No Hx Seizures: No Review of Systems All Other Systems: negative except mentioned in HPI Physical Exam Vital Signs Date Time Temp Pulse Resp B/P (MAP) Pulse Ox O2 Delivery O2 Flow Rate FiO2 07/22/19 20:09 98.1 75 16 134/66 (88) 96 Room Air Sp02 EP Interpretation: reviewed, normal General Appearance: well appearing, no apparent distress, alert Head: normocephalic, atraumatic Eyes: bilateral eye PERRL, bilateral eye EOMI ENT: uvula midline, moist mucus membranes Neck: supple, thyroid normal, supple/symm/no masses Respiratory: lungs clear, no respiratory distress, no retraction, no accessory muscle use Cardiovascular #1: normal peripheral pulses, regular rate, rhythm, no edema, no gallop, no murmur Gastrointestinal: non tender, soft, no guarding, no rebound Musculoskeletal: normal inspection Neurologic: alert, oriented x3 Psychiatric: mood/affect normal Skin: no rash, warm/dry Medical Decision Making Diagnostic Impression: Primary Impression: HTN (hypertension) Qualified Codes: I10 - Essential (primary) hypertension ER Course 79-year-old male a symptom medic hypertension, no acute indications for labs, EKG, chest x-ray, Patient was counseled about hypertension, diet modification, exercise Patient will follow-up with Dr. CARRIE NEWBY Disposition home with return precautions Last Vital Signs Date Time Temp Pulse Resp B/P (MAP) Pulse Ox O2 Delivery O2 Flow Rate FiO2 07/22/19 20:09 98.1 75 16 134/66 (88) 96 Room Air Disposition: HOME, SELF-CARE Condition: Stable Referrals: Bill Ramirez MD Patient Instructions: Hypertension Additional Instructions: The patient was provided with discharge instructions, notified to follow-up with a primary care doctor and or specialist in the next 24-48 hours, and to return to the ED if they have worsening of their symptoms. Please note that this report is being documented using [employer] technology. This can lead to erroneous entry secondary to incorrect interpretation by the dictating instrument. Pavel Dent MD Jul 22, 2019 20:36
[2019-07-22 20:40] VITALS: BP 134/66
--- NOTE | 2019-07-22 20:40 | NUR ---
ED Nurse Note: Pt cleared by health care Provider for discharge. DC instructions/prescription was given and explained to pt and verbalized understanding of teachings. All medical deviecs such as ID band removed. Pt is AAO x4, ambulatory and left with all personal belongings.
== END 2019-07-22 20:40 | disposition home or self-care (01) ==
LOC: EMR 20:30
DX: I10 Essential (primary) hypertension (principal)
CPT/HCPCS: 99282

== ENCOUNTER 2019-07-28 12:45 | Emergency (ER) | payer MEDICARE ==
[~2019-07-28] VITALS: Ht 190.5 cm; Wt 104.3 kg
[~2019-07-28 12:45] MED LIST changes: +LISINOPRIL20 MG ORAL; +OMEPRAZOLE40 M1 ORAL
[2019-07-28] MEDS ORDERED: NEPHROVITE1 TAB ORAL (13:00)
--- NOTE | 2019-07-28 13:10 | NUR ---
ED Nurse Note: pt walked in from hemotologist office due to low hemoglobin which pt cannot recall the exact counts. pt aao x4 and ambulatory. skin clean and intact. calm and cooperative. no acute distress noted at this moment. pt is in gown and on surveillance system monitor.
[2019-07-28 13:17] VITALS: BP 156/81
--- NOTE | 2019-07-28 13:40 | Emergency Room Report ---
History of Present Illness General Chief Complaint: Abnormal Labs Source: Patient Present Illness HPI Disclaimer: Please note that this report is being documented using [employer] technology. This can lead to erroneous entry secondary to incorrect interpretation by the dictating instrument. HPI: 79-year-old male with a history of anemia presents for evaluation of abnormal labs. The patient was sent over by his correctional supply supervisor, Dr. Roberts for evaluation. He typically gives the patient iron and EPO injections though he has had transfusions in the past. He has had prior rectal bleeding but denies any recent dark or melanotic stools. Colonoscopy was performed several years ago did not find any significant lesions aside from some polyps which were removed. Recent EGD was unremarkable per patient. He denies any recent symptoms such as lightheadedness, vertiginous symptoms, shortness of breath, chest pain, dyspnea on exertion or any other changes in his health. No recent fall or trauma. No history of coagulopathy. Does not take anticoagulants. PMH: Anemia, hypertension PSH: Denies Allergies: Denies Social Hx: Denies drug or alcohol abuse Allergies: Coded Allergies: No Known Allergies (Verified , 01/09/19) Nursing Documentation-PMH Past Medical History: No History, Except For Hx Cardiac Problems: Yes - anemic Hx Hypertension: Yes Hx Pacemaker: No Hx Asthma: No Hx COPD: No Hx Diabetes: No Hx Cancer: No Hx Gastrointestinal Problems: No Hx Dialysis: No Hx Neurological Problems: No Hx Cerebrovascular Accident: No Hx Seizures: No Review of Systems All Other Systems: negative except mentioned in HPI Physical Exam Vital Signs Date Time Temp Pulse Resp B/P (MAP) Pulse Ox O2 Delivery O2 Flow Rate FiO2 07/28/19 12:51 98.2 73 20 151/67 (95) 96 Room Air General: Awake and alert, no acute distress HEENT: NC/AT. EOMI. anicteric sclera. Moist mucous membranes Cardiovascular: RRR. S1 and S2 normal. No murmur appreciated Resp: Normal work of breathing. No cough, wheezing or crackles appreciated Abdomen: Abdomen is soft, nondistended. Nontender Skin: Intact. No abrasions, laceration or rash over the exposed skin MSK: Normal tone and bulk. Moving all extremities. No obvious deformity. Neuro: Awake and alert. Mentating appropriately. Medical Decision Making Diagnostic Impression: Primary Impression: Anemia ER Course 79-year-old male presents for evaluation of abnormal labs found as an outpatient. We do not have the readings of the labs and we will obtain screening blood work including type and screen and coagulation studies in preparation for possible transfusion. The patient is asymptomatic otherwise. Laboratory Tests Test 07/28/19 13:10 White Blood Count 4.8 K/UL (4.8-10.8) Red Blood Count 2.72 M/UL (4.70-6.10) L Hemoglobin 8.5 G/DL (14.2-18.0) L Hematocrit 26.7 % (42.0-52.0) L Mean Corpuscular Volume 98 FL (80-99) Mean Corpuscular Hemoglobin 31.3 PG (27.0-31.0) H Mean Corpuscular Hemoglobin Concent 31.9 G/DL (32.0-36.0) L Red Cell Distribution Width 12.0 % (11.6-14.8) Platelet Count 223 K/UL (150-450) Mean Platelet Volume 5.1 FL (6.5-10.1) L Neutrophils (%) (Auto) 63.1 % (45.0-75.0) Lymphocytes (%) (Auto) 24.8 % (20.0-45.0) Monocytes (%) (Auto) 7.1 % (1.0-10.0) Eosinophils (%) (Auto) 3.0 % (0.0-3.0) Basophils (%) (Auto) 2.1 % (0.0-2.0) H Prothrombin Time 10.7 SEC (9.30-11.50) Prothrombin Time INR 1.0 (0.9-1.1) PTT 25 SEC (23-33) Sodium Level 140 MMOL/L (136-145) Potassium Level 4.4 MMOL/L (3.5-5.1) Chloride Level 104 MMOL/L (98-107) Carbon Dioxide Level 29 MMOL/L (21-32) Anion Gap 7 mmol/L (5-15) Blood Urea Nitrogen 18 mg/dL (7-18) Creatinine 1.5 MG/DL (0.55-1.30) H Estimate Glomerular Filtration Rate mL/min (>60) Glucose Level 102 MG/DL (74-106) Calcium Level 8.5 MG/DL (8.5-10.1) Reevaluation Time: 14:53 Last Vital Signs Date Time Temp Pulse Resp B/P (MAP) Pulse Ox O2 Delivery O2 Flow Rate FiO2 07/28/19 13:17 98.2 81 20 156/81 96 Room Air Reevaluation Impression Labs show hemoglobin of 8.5. I discussed with his correctional supply supervisor who is requesting a unit be transfused in the emergency department and and the patient discharged for outpatient follow-up. FOBT was performed at bedside and is negative. Patient will receive 1 unit packed red cells and then discharged to follow-up with his correctional supply supervisor as an outpatient. Disposition: HOME, SELF-CARE Condition: Stable Dwight Alejandre MD Jul 28, 2019 13:40
[2019-07-28 13:43] LABS: ANION GAP 7 mmol/L (5-15); BLOOD UREA NITROGEN 18 mg/dL (7-18); CALCIUM 8.5 MG/DL (8.5-10.1); CARBON DIOXIDE 29 MMOL/L (21-32); CHLORIDE 104 MMOL/L (98-107); CREATININE 1.5 MG/DL (0.55-1.30); POTASSIUM 4.4 MMOL/L (3.5-5.1); SODIUM 140 MMOL/L (136-145)
[2019-07-28 13:45] LABS: BASOPHILS % (AUTO) 2.1 % (0.0-2.0); HEMATOCRIT 26.7 % (42.0-52.0); HEMOGLOBIN 8.5 G/DL (14.2-18.0); LYMPHOCYTES % (AUTO) 24.8 % (20.0-45.0); MEAN CORPUSCULAR VOLUME 98 FL (80-99); MONOCYTES % (AUTO) 7.1 % (1.0-10.0); NEUTROPHILS % (AUTO) 63.1 % (45.0-75.0); PLATELET COUNT 223 K/UL (150-450); RED BLOOD COUNT 2.72 M/UL (4.70-6.10); WHITE BLOOD COUNT 4.8 K/UL (4.8-10.8)
--- NOTE | 2019-07-28 15:45 | NUR ---
ED Nurse Note: Blood transfusion intiated with two RNs verified. Vital Signs initial temperature 97.8, pulse 65, and blood pressure 161/83.
--- NOTE | 2019-07-28 16:00 | NUR ---
ED Nurse Note: Initial 15 minutes stayed at bedside. No adverse reaction noted. Vital signs temperature 98.0, pulse 64, blood pressure 161/77. Rate of infusion increased to 120cc per hour.
[2019-07-28 17:50] VITALS: BP 167/78
--- NOTE | 2019-07-28 17:50 | NUR ---
ED Nurse Note: Blood transfusion 500ml completed. Patient vital signs post tranfusion are as follows: blood pressure 167/78, pulse 63, temperature 98.2 F and O2 sat 100% on room air. No adverse reaction noted.
--- NOTE | 2019-07-28 18:00 | NUR ---
ED Nurse Note: ERMD informed about blood transfusion completed.
[2019-07-28 18:46] VITALS: BP 127/84
--- NOTE | 2019-07-28 18:47 | NUR ---
ED Nurse Note: Pt cleared by health care Provider for discharge. blood transfusion completed and no adverse reaction noted. DC instructions was given and explained to pt and verbalized understanding of teachings. All medical deviecs such as ID band removed. Pt is AAO x4, ambulatory and left with all personal belongings.
== END 2019-07-28 18:48 | disposition home or self-care (01) ==
LOC: EMR 13:50
DX: D64.9 Anemia, unspecified (principal); I10 Essential (primary) hypertension
CPT/HCPCS: 36415; 36430; 80048; 85025; 85610; 85730; 86850; 86900; 86901; 86920; 96360; 96361; 99285; P9016

== ENCOUNTER 2020-05-11 04:55 | Emergency (ER) | payer MEDICARE ==
[~2020-05-11] VITALS: Ht 188 cm; Wt 108.9 kg
--- NOTE | 2020-05-11 05:10 | NUR ---
ED Nurse Note: Patient walked into the ED with c/o elevated BP at home 184/97 onset 30mins ago accompanied by chest discomfort and dizziness. Pain is non specific and non radiating.Patient denies SOB/. PAtient denies any flu like symptoms. Patient is AAOX4 and ambulatory.
[2020-05-11] MEDS ORDERED: Lisinopril 10mg tab ORAL ONE (05:15)
--- NOTE | 2020-05-11 05:15 | NUR ---
ED Nurse Note: ERMD at bedside
--- NOTE | 2020-05-11 05:17 | Emergency Room Report ---
History of Present Illness General Chief Complaint: General Complaint Source: Patient Present Illness HPI This is an 79-year-old male with a history of high blood pressure. He presents with chief complaint of high blood pressure. Last night before going to sleep he said his blood pressure systolic was 180. He woke up this morning it was 190. He got concerned and came here. He has not taken his blood pressure medication this morning. He usually takes lisinopril 20 mg a day. He said that last week his blood pressures were normal with systolic in the 120s. The only thing difference is that he has been putting salt on his tomatoes. He denies any other symptoms. No chest pain. No shortness of breath. No hematuria. No headache or neurological deficit. Allergies: Coded Allergies: No Known Allergies (Verified , 01/09/19) COVID-19 Screening Contact w/high risk pt: No Experienced COVID-19 symptoms?: No COVID-19 Testing performed COMB WINDER: No Patient History Past Medical History: see triage record, old chart reviewed, HTN Past Surgical History: none Pertinent Family History: none Social History: Denies: smoking Immunizations: other Reviewed Nursing Documentation: PMH: Agreed; PSxH: Agreed Nursing Documentation-PMH Hx Cardiac Problems: Yes - anemic Hx Hypertension: Yes Hx Pacemaker: No Hx Asthma: No Hx COPD: No Hx Diabetes: No Hx Cancer: No Hx Gastrointestinal Problems: No Hx Dialysis: No Hx Neurological Problems: No Hx Cerebrovascular Accident: No Hx Seizures: No Review of Systems Eye: Denies: eye pain, blurred vision ENT: Denies: ear pain, nose congestion, throat swelling Respiratory: Denies: cough, shortness of breath Cardiovascular: Denies: chest pain, palpitations Gastrointestinal: Denies: abdominal pain, diarrhea, nausea, vomiting Musculoskeletal: Denies: back pain, joint pain Skin: Denies: rash Neurological: Denies: headache, numbness Endocrine: Denies: increased thirst, increased urine Hematologic/Lymphatic: Denies: easy bruising All Other Systems: negative except mentioned in HPI Physical Exam Vital Signs Date Time Temp Pulse Resp B/P (MAP) Pulse Ox O2 Delivery O2 Flow Rate FiO2 05/11/20 05:02 97.9 73 20 190/83 (118) 99 Room Air Vitals with high blood pressure Sp02 EP Interpretation: reviewed, normal General Appearance: well appearing, no apparent distress, alert Head: normocephalic, atraumatic Eyes: bilateral eye PERRL, bilateral eye EOMI ENT: hearing grossly normal, normal pharynx Neck: full range of motion, supple, no meningismus Respiratory: chest non-tender, lungs clear, normal breath sounds Cardiovascular #1: regular rate, rhythm, no murmur Gastrointestinal: normal bowel sounds, non tender, no mass, no organomegaly, no bruit, non-distended Musculoskeletal: back normal, normal range of motion, gait/station normal Psychiatric: mood/affect normal Medical Decision Making Diagnostic Impression: Primary Impression: HTN (hypertension) Qualified Codes: I10 - Essential (primary) hypertension ER Course Patient presents with asymptomatic hypertension. This could be secondary to increase salt intake. Blood pressure improving without any intervention. Will check for any evidence of endorgan damage. I gave him a dose of blood pressure medication here. No evidence of endorgan damage. Blood pressure is now 147/74. Will discharge home. Last Vital Signs Date Time Temp Pulse Resp B/P (MAP) Pulse Ox O2 Delivery O2 Flow Rate FiO2 05/11/20 05:02 97.9 73 20 190/83 (118) 99 Room Air Status: improved Disposition: HOME, SELF-CARE Condition: Stable Additional Instructions: Decrease your salt intake. Follow-up with your doctor in 7 days for recheck. Return if worse. If your blood pressure is over 160 top number and over 100 lower number, may take an extra dose of your lisinopril. Mihai Giles MD May 11, 2020 05:17
[2020-05-11 05:20] VITALS: BP 154/85
--- NOTE | 2020-05-11 05:25 | NUR ---
ED Nurse Note: Blood and specimen sent for workup
[2020-05-11 05:36] LABS: HEMATOCRIT 36.9 % (42.0-52.0); HEMOGLOBIN 11.5 G/DL (14.2-18.0); MEAN CORPUSCULAR VOLUME 100 FL (80-99); PLATELET COUNT 178 K/UL (150-450); RED BLOOD COUNT 3.68 M/UL (4.70-6.10); WHITE BLOOD COUNT 2.4 K/UL (4.8-10.8)
[2020-05-11 05:42] LABS: APPEARANCE,URINE CLEAR; COLOR,URINE PALE YELLOW
[2020-05-11 05:43] LABS: BILIRUBIN, URINE NEGATIVE (NEGATIVE); GLUCOSE, URINE (UA) NEGATIVE (NEGATIVE); KETONES,URINE NEGATIVE (NEGATIVE); LEUKOCYTE ESTERASE ,URINE NEGATIVE (NEGATIVE); NITRITE,URINE NEGATIVE (NEGATIVE); PROTEIN,URINE NEGATIVE (NEGATIVE); UROBILINOGEN,URINE NORMAL MG/DL (0.0-1.0)
[2020-05-11 05:45] LABS: ANION GAP 4 mmol/L (5-15); BLOOD UREA NITROGEN 10 mg/dL (7-18); CALCIUM 9.1 MG/DL (8.5-10.1); CARBON DIOXIDE 32 MMOL/L (21-32); CHLORIDE 106 MMOL/L (98-107); CREATININE 1.5 MG/DL (0.55-1.30); POTASSIUM 4.5 MMOL/L (3.5-5.1); SODIUM 142 MMOL/L (136-145)
--- NOTE | 2020-05-11 06:07 | NUR ---
ER DISCHARGE NOTE: Patient is cleared to be discharged per ERMD, pt is aox4, on room air, with stable vital signs. pt was given dc and prescription instructions, pt was able to verbalize understanding, pt id band and iv site removed without complications. pt is able to ambulate with steady gait. pt took all belongings.
[2020-05-11 06:08] VITALS: BP 149/87
== END 2020-05-11 06:09 | disposition home or self-care (01) ==
LOC: EMR 05:19
DX: I10 Essential (primary) hypertension (principal); Z79.82 Long term (current) use of aspirin; Z79.899 Other long term (current) drug therapy
CPT/HCPCS: 36415; 80048; 81001; 85025; 99283

== ENCOUNTER 2020-06-30 20:10 | Emergency (ER) | payer MEDICARE ==
[~2020-06-30] VITALS: Ht 188 cm; Wt 108.9 kg
[2020-06-30 20:24] VITALS: BP 137/73
--- NOTE | 2020-06-30 20:24 | NUR ---
ED Nurse Note: Pt ambulated into ed from home CO CP x 6 days in left chest described as aching, pressure, tightness with abdominal pain 05/25. Pt aao x 4, ambulates with steady gait, VSS no ss of distress noted. Pt denies n/v/fever/diarrhea/body aches/chills. Pt states CP began while pt was at home watching sports. Pt states that he took pepto bismol at home for abdominal pain, no relief. Pt placed in gown on monitor worker. Awaiting ERMD at bedside. Awaiting further orders.
[2020-06-30] MEDS ORDERED: Nitroglycerin 2% oint pkt TOPIC ONE (20:30)
--- NOTE | 2020-06-30 20:30 | NUR ---
ED Nurse Note: ERMD at bedside
--- NOTE | 2020-06-30 20:32 | NUR ---
ED Nurse Note: all medications administered, pt tolerated well no ss of distress noted. will continue to monitor.
--- NOTE | 2020-06-30 20:42 | Emergency Room Report ---
History of Present Illness General Chief Complaint: Chest Pain Source: Patient Present Illness HPI Patient presents with left-sided substernal chest pain. Started yesterday. It is sharp and intermittent. It is not exertional. He has hypertension. He denies any fevers or chills but has been somewhat diaphoretic with the heat recently. The patient denies feeling this way before. He denies prior cardiac work-up. He lives upstairs and denies feeling the pain when he walks upstairs. He rates the pain 9/10 to the triage nurse but denies this degree of pain to me. He states that it is 9/10 when it occurs but he does not have the pain at this time. The pain does not radiate. Risk factors for cardiac disease: Distant smoking history, hypertension, hypercholesterolemia. No sore throat, palpitations, nausea, vomiting, diarrhea, dysuria, abdominal pain, shortness of breath, joint pain, rashes, depression, anxiety, visual changes, dizziness, headache. Allergies: Coded Allergies: No Known Allergies (Verified , 01/09/19) COVID-19 Screening Contact w/high risk pt: No Experienced COVID-19 symptoms?: No COVID-19 Testing performed PASSENGER RATE CLERK: No Patient History Past Medical History: see triage record Social History: Denies: smoking - 40 years ago, alcohol use, drug use Social History Narrative Lives with nephew, worked for [email or web address] Reviewed Nursing Documentation: PMH: Agreed; PSxH: Agreed Nursing Documentation-PMH Past Medical History: No History, Except For Hx Cardiac Problems: Yes - anemic Hx Hypertension: Yes Hx Pacemaker: No Hx Asthma: No Hx COPD: No Hx Diabetes: No Hx Cancer: No Hx Gastrointestinal Problems: No Hx Dialysis: No Hx Neurological Problems: No Hx Cerebrovascular Accident: No Hx Seizures: No Review of Systems All Other Systems: negative except mentioned in HPI Physical Exam Vital Signs Date Time Temp Pulse Resp B/P (MAP) Pulse Ox O2 Delivery O2 Flow Rate FiO2 06/30/20 20:14 97.5 71 16 137/73 (94) 94 Room Air Sp02 EP Interpretation: reviewed, normal General Appearance: well appearing, no apparent distress, GCS 15 Head: normocephalic Eyes: bilateral eye normal inspection, bilateral eye PERRL, bilateral eye EOMI ENT: moist mucus membranes Neck: supple Respiratory: lungs clear, normal breath sounds Cardiovascular #1: regular rate, rhythm Cardiovascular #2: 2+ radial (R) Gastrointestinal: normal inspection, normal bowel sounds, non tender, no mass, non-distended Musculoskeletal: back normal, normal range of motion, gait/station normal Neurologic: alert, oriented x3 Medical Decision Making Diagnostic Impression: Primary Impression: Chest pain Qualified Codes: R07.9 - Chest pain, unspecified Additional Impression: Elevated troponin ER Course Patient presents with chest pain with an atypical history. He does have cardiac risk factors. Differential includes unstable angina, acute myocardial infarction, costochondritis, GI origin amongst others. Patient evaluated with EKG, chest x-ray and labs. Patient placed on environmental monitoring specialist. The patient took a baby aspirin this morning. EKG with LVH but no acute injury. Chest x-ray negative. Initial labs with anemia which has been stable for many years. Renal insufficiency. Called with elevated troponin. Metoprolol and Lovenox ordered. 2030 Patient states chest pain is resolved. Patient did continue observation and repeat troponin levels. Discussed with accepting MD. 2203 Patient improved and stable for transfer. Laboratory Tests Test 06/30/20 20:25 White Blood Count 4.5 K/UL (4.8-10.8) L Red Blood Count 3.10 M/UL (4.70-6.10) L Hemoglobin 9.8 G/DL (14.2-18.0) L Hematocrit 31.3 % (42.0-52.0) L Mean Corpuscular Volume 101 FL (80-99) H Mean Corpuscular Hemoglobin 31.7 PG (27.0-31.0) H Mean Corpuscular Hemoglobin Concent 31.4 G/DL (32.0-36.0) L Red Cell Distribution Width 13.4 % (11.6-14.8) Platelet Count 193 K/UL (150-450) Mean Platelet Volume 6.1 FL (6.5-10.1) L Neutrophils (%) (Auto) 55.5 % (45.0-75.0) Lymphocytes (%) (Auto) 31.1 % (20.0-45.0) Monocytes (%) (Auto) 8.2 % (1.0-10.0) Eosinophils (%) (Auto) 3.7 % (0.0-3.0) H Basophils (%) (Auto) 1.5 % (0.0-2.0) Prothrombin Time 11.4 SEC (9.30-11.50) Prothrombin Time INR 1.0 (0.9-1.1) Activated Partial Thromboplast Time 26 SEC (23-33) Sodium Level 138 MMOL/L (136-145) Potassium Level 4.3 MMOL/L (3.5-5.1) Chloride Level 103 MMOL/L (98-107) Carbon Dioxide Level 33 MMOL/L (21-32) H Blood Urea Nitrogen 16 mg/dL (7-18) Creatinine 1.7 MG/DL (0.55-1.30) H Estimated Glomerular Filtration Rate 47.1 mL/min (>60) Glucose Level 106 MG/DL (74-106) Calcium Level 7.9 MG/DL (8.5-10.1) L Total Bilirubin 0.5 MG/DL (0.2-1.0) Aspartate Amino Transferase (AST) 43 U/L (15-37) H Alanine Aminotransferase (ALT) 31 U/L (12-78) Alkaline Phosphatase 64 U/L (46-116) Total Creatine Kinase 583 U/L (26-308) H Troponin I 0.191 ng/mL (0.000-0.056) Pro-B-Type Natriuretic Peptide 112 pg/mL (0-125) Total Protein 7.4 G/DL (6.4-8.2) Albumin 3.9 G/DL (3.4-5.0) Globulin 3.5 g/dL Albumin/Globulin Ratio 1.1 (1.0-2.7) EKG Diagnostic Results Troponin ordered: Yes Rate: normal Rhythm: NSR ST Segments: no acute changes - Right bundle branch block ASA given to the pt in ED: Yes Rhythm Strip Diag. Results EP Interpretation: yes Rhythm: NSR, no PVC's, no ectopy Chest X-Ray Diagnostic Results Chest X-Ray Diagnostic Results : Chest X-Ray Ordered: Yes # of Views/Limited/Complete: 1 View Indication: Chest Pain EP Interpretation: Yes Interpretation: other - elevated L hemidiaphragm Impression: Other Last Vital Signs Date Time Temp Pulse Resp B/P (MAP) Pulse Ox O2 Delivery O2 Flow Rate FiO2 07/01/20 00:00 97.5 55 13 137/73 99 Room Air Status: improved Disposition: SHORT-TERM HOSP Condition: Serious Ashok Salazar MD Jun 30, 2020 20:42
--- NOTE | 2020-06-30 20:42 | NUR ---
ED Nurse Note: xray at bedside
[2020-06-30 20:45] LABS: BASOPHILS % (AUTO) 1.5 % (0.0-2.0); EOSINOPHILS % (AUTO) 3.7 % (0.0-3.0); HEMATOCRIT 31.3 % (42.0-52.0); HEMOGLOBIN 9.8 G/DL (14.2-18.0); LYMPHOCYTES % (AUTO) 31.1 % (20.0-45.0); MEAN CORPUSCULAR VOLUME 101 FL (80-99); MONOCYTES % (AUTO) 8.2 % (1.0-10.0); NEUTROPHILS % (AUTO) 55.5 % (45.0-75.0); PLATELET COUNT 193 K/UL (150-450); RED CELL DISTRIBUTION WIDTH 13.4 % (11.6-14.8); WHITE BLOOD COUNT 4.5 K/UL (4.8-10.8)
--- NOTE | 2020-06-30 20:56 | Diagnostic Imaging Report ---
EXAM: XR Chest, 1 View CLINICAL HISTORY: CP TECHNIQUE: Frontal view of the chest. COMPARISON: None FINDINGS: Lungs: The left hemidiaphragm is elevated. Atelectatic changes are seen at the left lung base. Pleural space: Unremarkable. No pneumothorax. Heart: Unremarkable. No cardiomegaly. Mediastinum: Unremarkable. Bones/joints: Unremarkable. IMPRESSION: No acute cardiac pulmonary process. Left lower lobe volume loss.
--- NOTE | 2020-06-30 21:02 | NUR ---
ED Nurse Note: ERMD at bedside
[2020-06-30 21:21] LABS: ALANINE AMINOTRANSFERASE 31 U/L (12-78); ALBUMIN 3.9 G/DL (3.4-5.0); ALBUMIN/GLOBULIN RATIO 1.1 (1.0-2.7); ALKALINE PHOSPHATASE 64 U/L (46-116); ASPARTATE AMINO TRANSFERASE 43 U/L (15-37); BILIRUBIN,TOTAL 0.5 MG/DL (0.2-1.0); BLOOD UREA NITROGEN 16 mg/dL (7-18); CALCIUM 7.9 MG/DL (8.5-10.1); CARBON DIOXIDE 33 MMOL/L (21-32); CREATINE KINASE 583 U/L (26-308); CREATININE 1.7 MG/DL (0.55-1.30)
[2020-06-30 21:30] LABS: CHLORIDE 103 MMOL/L (98-107); POTASSIUM 4.3 MMOL/L (3.5-5.1); SODIUM 138 MMOL/L (136-145)
[2020-06-30] MEDS ORDERED: Metoprolol Tartrate 5mg/5ml Inj IVP STA (21:30)
[2020-06-30] MEDS ORDERED: Enoxaparin 100mg Inj SUBQ STA (21:30)
--- NOTE | 2020-06-30 21:31 | NUR ---
ED Nurse Note: all medications administered, pt tolerated well no ss of distress noted. will continue to monitor. Belongings list completed.
[2020-06-30 22:10] VITALS: BP 164/87
--- NOTE | 2020-06-30 23:52 | NUR ---
ED Nurse Note: Pt resting in bed, VSS no ss of distress noted. will continue to monitor.
[2020-07-01] VITALS: BP 137/73
--- NOTE | 2020-07-01 00:26 | NUR ---
ED Nurse Note: Report given to JOHN Alvarez at [facility]
--- NOTE | 2020-07-01 01:03 | NUR ---
Spoke with Jarred at [facility]-another 30-45 min(0145).
--- NOTE | 2020-07-01 02:14 | NUR ---
[facility] just arrived.
--- NOTE | 2020-07-01 02:26 | NUR ---
ER DISCHARGE NOTE: Patient is cleared to be discharged [facility] with [facility] per ERMD, pt is aox4, on room air, with stable vital signs. pt was able to verbalize understanding, pt id band removed without complications. pt is able to ambulate with steady gait. pt took all belongings. Report JOHN Alvarez at [facility]. Pt transferred to hospital via [facility]. Pt took all belongings.
[2020-07-01 03:04] VITALS: BP 141/78
--- NOTE | 2020-07-01 19:55 | Cardiology Report ---
APPROVED REPORT EKG Measurement Heart [id number] <Conclusion> Normal sinus rhythm with sinus arrhythmia Right bundle branch block Septal infarct, age undetermined Abnormal ECG
== END 2020-07-01 02:26 | disposition short-term general hospital (02) ==
LOC: EMR 20:40
DX: R07.9 Chest pain, unspecified (principal); R79.89 Other specified abnormal findings of blood chemistry; I10 Essential (primary) hypertension; Z87.891 Personal history of nicotine dependence; N28.9 Disorder of kidney and ureter, unspecified; I45.10 Unspecified right bundle-branch block
CPT/HCPCS: 36415; 71045; 80053; 82550; 83880; 84484; 85025; 85610; 85730; 93005; 96374; 99285; J1650

== ENCOUNTER 2020-09-29 17:31 | Inpatient (IN) | payer MEDICARE ==
[~2020-09-29] VITALS: Ht 190.5 cm; Wt 117.0 kg
--- NOTE | 2020-09-29 17:49 | Emergency Room Report ---
History of Present Illness General Chief Complaint: Hypertension Source: Patient Present Illness [facility] Disclaimer: Please note that this report is being documented using [employer] technology. This can lead to erroneous entry secondary to incorrect interpretation by the dictating instrument. HPI: Is an 80-year-old male with history of hypertension presenting for evaluation of elevated blood pressure taken at home. 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 He noted his systolic blood pressures were in the 170s. He denied chest pain discomfort, shortness of breath, lightheadedness, palpitations or any other symptoms at that time. The patient had a meal of tacos and ribs prior to checking his blood pressure. He is compliant with his lisinopril in the mornings. Denies fever, chills, cough or congestions. Denies headaches, vision changes nausea or vomiting. Patient had a cardiac stress test several months ago which was unremarkable. Denies history of heart disease or other medical ailments. Took extra dose of antihypertensive prior to arrival. PMH: Hypertension PSH: Denies Allergies: Denies Social Hx: Non-smoker Allergies: Coded Allergies: No Known Allergies (Verified , 01/09/19) COVID-19 Screening Contact w/high risk pt: No Experienced COVID-19 symptoms?: No Nursing Documentation-PMH Hx Cardiac Problems: Yes - anemic Hx Hypertension: Yes Hx Pacemaker: No Hx Asthma: No Hx COPD: No Hx Diabetes: No Hx Cancer: No Hx Gastrointestinal Problems: No Hx Dialysis: No Hx Neurological Problems: No Hx Cerebrovascular Accident: No Hx Seizures: No Review of Systems All Other Systems: negative except mentioned in HPI Physical Exam General: Awake and alert, no acute distress HEENT: NC/AT. EOMI. Cardiovascular: RRR. S1 and S2 normal. No murmur appreciated Resp: Normal work of breathing. No cough, wheezing or crackles appreciated Abdomen: Abdomen is soft, nondistended. Nontender Skin: Intact. No abrasions, laceration or rash over the exposed skin MSK: Normal tone and bulk. Moving all extremities. No obvious deformity. Neuro: Awake and alert. Mentating appropriately. Medical Decision Making Diagnostic Impression: Primary Impression: HTN (hypertension) Additional Impression: Elevated troponin ER Course Is an 80-year-old male presenting for evaluation of elevated blood pressure taken by home machine. Here in the emergency department systolic blood pressures are in the 170s and the patient is asymptomatic. EKG shows sinus rhythm with incomplete right bundle branch block pattern consistent with prior EKG. No acute ischemic changes are noted. Labs do show an elevated troponin. This is higher than the patient's previous level. He currently denies any chest pain. Patient was given 325 mg aspirin. Creatinine elevated consistent with prior labs. Chest x-ray unremarkable. Will admit for ACS rule out. Admit Dr. Araya per patient's health plan Laboratory Tests Test 09/29/20 18:00 White Blood Count 3.8 K/UL (4.8-10.8) L Red Blood Count 3.45 M/UL (4.70-6.10) L Hemoglobin 10.9 G/DL (14.2-18.0) L Hematocrit 35.9 % (42.0-52.0) L Mean Corpuscular Volume 104 FL (80-99) H Mean Corpuscular Hemoglobin 31.5 PG (27.0-31.0) H Mean Corpuscular Hemoglobin Concent 30.3 G/DL (32.0-36.0) L Red Cell Distribution Width 13.4 % (11.6-14.8) Platelet Count 174 K/UL (150-450) Mean Platelet Volume 6.4 FL (6.5-10.1) L Neutrophils (%) (Auto) 53.3 % (45.0-75.0) Lymphocytes (%) (Auto) 31.7 % (20.0-45.0) Monocytes (%) (Auto) 9.6 % (1.0-10.0) Eosinophils (%) (Auto) 3.0 % (0.0-3.0) Basophils (%) (Auto) 2.5 % (0.0-2.0) H Sodium Level 138 MMOL/L (136-145) Potassium Level 4.7 MMOL/L (3.5-5.1) Chloride Level 103 MMOL/L (98-107) Carbon Dioxide Level 31 MMOL/L (21-32) Anion Gap 4 mmol/L (5-15) L Blood Urea Nitrogen 11 mg/dL (7-18) Creatinine 1.8 MG/DL (0.55-1.30) H Estimated Glomerular Filtration Rate 44.1 mL/min (>60) Glucose Level 99 MG/DL (74-106) Calcium Level 8.8 MG/DL (8.5-10.1) Total Bilirubin 0.5 MG/DL (0.2-1.0) Aspartate Amino Transferase (AST) 43 U/L (15-37) H Alanine Aminotransferase (ALT) 25 U/L (12-78) Alkaline Phosphatase 63 U/L (46-116) Troponin I 0.230 ng/mL (0.000-0.056) Pro-B-Type Natriuretic Peptide Pending Total Protein 6.9 G/DL (6.4-8.2) Albumin 3.6 G/DL (3.4-5.0) Globulin 3.3 g/dL Albumin/Globulin Ratio 1.1 (1.0-2.7) EKG Diagnostic Results Troponin ordered: Yes When was troponin ordered?: Sep 29, 2020 EKG Time: 17:45 Rate: normal Rhythm: NSR ST Segments: no acute changes Other Impression Sinus rhythm, normal axis, normal intervals, QTC 4 and 10 ms. Incomplete right bundle xochitl block pattern Rhythm Strip Diag. Results Rhythm Strip Time: 17:45 EP Interpretation: yes Rate: 60s Rhythm: NSR Chest X-Ray Diagnostic Results Chest X-Ray Diagnostic Results : Chest X-Ray Ordered: Yes # of Views/Limited/Complete: 1 View Indication: Other - Hypertension EP Interpretation: Yes Interpretation: no consolidation, no effusion, no pneumothorax, other - Elevation of the left hemidiaphragm Impression: No acute disease Electronically Signed by: Electronically signed by Dr. Dwight Alejandre MD Disposition: ADMITTED INPATIENT Condition: Serious Dwight Alejandre MD Sep 29, 2020 17:49
--- NOTE | 2020-09-29 18:00 | NUR ---
ED Nurse Note:pt. came from home with hypertension, he is A/Ox4 ambulatory, skin is intact, blood was sent to labs, EKG done
[2020-09-29 18:28] LABS: CALCIUM 8.8 MG/DL (8.5-10.1); CREATININE 1.8 MG/DL (0.55-1.30); POTASSIUM 4.7 MMOL/L (3.5-5.1)
[2020-09-29 18:29] LABS: ALBUMIN 3.6 G/DL (3.4-5.0); ALBUMIN/GLOBULIN RATIO 1.1 (1.0-2.7); BILIRUBIN,TOTAL 0.5 MG/DL (0.2-1.0)
[2020-09-29 18:37] VITALS: BP 130/66
[2020-09-29 18:42] LABS: BASOPHILS % (AUTO) 2.5 % (0.0-2.0); HEMATOCRIT 35.9 % (42.0-52.0); HEMOGLOBIN 10.9 G/DL (14.2-18.0); LYMPHOCYTES % (AUTO) 31.7 % (20.0-45.0); MEAN CORPUSCULAR VOLUME 104 FL (80-99); MONOCYTES % (AUTO) 9.6 % (1.0-10.0); NEUTROPHILS % (AUTO) 53.3 % (45.0-75.0); PLATELET COUNT 174 K/UL (150-450); RED BLOOD COUNT 3.45 M/UL (4.70-6.10); RED CELL DISTRIBUTION WIDTH 13.4 % (11.6-14.8); WHITE BLOOD COUNT 3.8 K/UL (4.8-10.8)
[2020-09-29 19:10] VITALS: BP 147/69
--- NOTE | 2020-09-29 19:10 | NUR ---
ED Nurse Note: pt laying in bed with eyes open, AAOx4, breathing even and unlabored. Denies chest pain, no complaints from pt at the moment. VSS.
--- NOTE | 2020-09-29 19:14 | Diagnostic Imaging Report ---
EXAM: XR Chest, 1 View CLINICAL HISTORY: SOB TECHNIQUE: Frontal view of the chest. COMPARISON: Chest radiograph on 06/30/2020 FINDINGS: Hardware: None. Lungs/pleura: Stable elevation of the left hemidiaphragm. Left basilar atelectasis. No other focal consolidation. No pleural effusion or pneumothorax. Heart/mediastinum: Normal. No cardiomegaly. Soft tissues: Unremarkable. Bones: No acute fracture. Degenerative changes of the spine. Upper abdomen: Normal. IMPRESSION: 1. Stable elevation of the left hemidiaphragm. Left basilar atelectasis. 2. No other focal consolidation.
--- NOTE | 2020-09-29 21:20 | NUR ---
ED Nurse Note: COVID swab sent to lab
[2020-09-29 21:40] VITALS: BP 130/74
--- NOTE | 2020-09-29 21:41 | NUR ---
ED Nurse Note: pt laying in bed, no complaints from pt. Waiting for COVID results to give report.
--- NOTE | 2020-09-29 21:51 | NUR ---
ED Nurse Note: Report given to JOHN Angulo. Aware waitinng for COVID results before transfering pt upstairs.
--- NOTE | 2020-09-29 22:20 | NUR ---
TRANSFER TO FLOOR: Patient transferred to tele via gurney accompanied by 2 RNS as ordered, per EDMD. Report given to JOHN Angulo. Belongings and admission packet given to JOHN Angulo.
--- NOTE | 2020-09-29 22:30 | NUR ---
NURSE NOTES: Patient received from Taylor LOPEZ. Patient ambulated to bed. Alert and oriented x4. senior courtroom clerk placed. Skin assessment done, no skin issues. Belongings accounted for. Vital signs WNL. Called Dr. Araya and orders received, verified and carried out. Bed in lowest position and locked. Call light within reach.
[2020-09-30] VITALS: BP 152/75
[2020-09-30 04:00] VITALS: BP 112/67
--- NOTE | 2020-09-30 07:21 | NUR ---
NURSE HAND-OFF REPORT: Important Events on Shift:[Admission] Patient Status: [FC, Stable] Diet: [Cardiac Diet] Pending Orders: [] Pending Results/Labs:[] Pending MD notification:[] Latest Vital Signs: Temperature 97.7 , Pulse 48 , B/P 112 /67 , Respiratory Rate 17 , O2 SAT 97 , Room Air, O2 Flow Rate . Vital Sign Comment: [] EKG Rhythm: Sinus Rhythm c BBB Rhythm change?: N MD Notified?: - MD Response: Latest Norton Fall Score: 20 Fall Risk: Low Risk Safety Measures: Call light Within Reach, Bed Alarm Zone 1, Side Rails Side Rails x2, Bed position Low and Locked. Fall Precautions: Yellow Socks Yellow Gown Door Sign Patient Fall Education Report given to [Chip LOPEZ].
--- NOTE | 2020-09-30 07:23 | NUR ---
NURSE NOTES: pt is alert and awake; sitting up and eating breakfast. respiration even and unlabored on room air. denies pain. no acute distress noted at this time. no coughing noted. at this time. call light within reach.
[2020-09-30 08:00] VITALS: BP 149/78
[2020-09-30] MEDS ORDERED: Lisinopril 20mg tab ORAL SCH (09:00)
[2020-09-30] MEDS: Nephrovite tab (Rena-Vite) ORAL SCH (09:46)
[2020-09-30] MEDS: Aspirin Baby 81mg ORAL SCH (09:46)
[2020-09-30] MEDS: Heparin 5000 units/ml inj SUBQ SCH ×2 (11:10→21:04)
--- NOTE | 2020-09-30 11:59 | History & Physical ---
History and Physical History & Physicial Attending physician: Dr. Araya Reason for admission: Elevated BP HPI: This is an 80-year-old male with history of anemia, and hypertension who presented to the ED for evaluation of elevated blood pressure taken at home. Patient reports having a BP monitor at home and checks his BP frequently. He reports his systolic blood pressure is in the 130s on average, however found his systolic blood pressure in the 170s on the day of admission. He denied chest pain, shortness of breath, lightheadedness, palpitations or any other symptoms at the time. Patient reports having a meal of tacos and ribs prior to checking his blood pressure. He reports taking his he is compliant with his home medications, patient reports having a cardiac stress test several months ago which was unremarkable. Including his lisinopril. Patient also reports 2 weeks history of lower extremity bilateral pitting edema. Patient sees his server service assistant and was started on " water pill" that he started to take as of yesterday. He does report having done echocardiogram in the past but does not remember his ejection fraction. The initial EKG showed sinus rhythm with incomplete right bundle branch block pattern consistent with prior EKG. No acute ischemic changes were noted. Initial laboratory studies do show an elevated troponin. He was given aspirin in the ED and was admitted to the hospital for ACS rule out. Chest x-ray showed no acute disease and was clear from consolidation, effusion, and pneumothorax. Elevation of the left hemidiaphragm was noted however. Pt tested negative for COVID-19 with rapid gene assay in the ER. PMHx: Anemia, hypertension Meds: Notable for amlodipine, aspirin, ferrous sulfate, folic acid, latanoprost, lisinopril, omeprazole, simvastatin, tamsulosin, vitamin B complex/vitamin C/folic acid Allergies: No known allergies FHx: Unknown Personal/Social Hx: Patient is from home ROS: Negative except mentioned in HPI PE: VS: BP 149/78, HR 63, RR 18, wt in 117 kg, ht 190 cm HEENT: Head examination reveals that the head is normocephalic, atraumatic without deformity or unusual swelling. Pupils are round, reactive to light and accomodation normally. There is no nystagmus, lid lag or exophthalmos. Nasal mucosa is pink. Vision is normal. Chest and Lung: Reveals clear, normal, symmetrical berath sounds with no adventitous sound. Expansion is normal. There are no surgical scars. Cardiovascular: Revelas normal S1, S2 without murmurs, rubs or clicks Abdomen: Soft with no tenderness or organomegaly Rectal: Deferred Musculoskeletal: There is no tenderness to plapation. Range of motion is normal Neurological: Cranial nerves II to XII are intact. Gait is normal without ataxia. DTRs are normal. Babinski is downgoing. Extremities: 1+ b/l LE pitting edema Laboratory data: Lab testing shows WBC 3.8, hemoglobin 10.9, hematocrit 35.9, MCV 104 Chemistries show creatinine of 1.8, troponin 0.21 Impression and recommendation: 1. Hypertension - We will continue lisinopril and amlodipine - added clonidine prn for SBP >150 - monitor BP 2. Elevated troponin 3. Hx of anemia - continue vitamin B and folic acid 4. DVT ppx - on heparin 5. B/l 1+ pitting edema - we will continue lasix - we will order 2D echo - serial troponins - would appreciate cardio consult The care for this patient was discussed with my supervising physician. Time spent for this case was approximately 31 minutes. Ralf Heller Sep 30, 2020 11:59
[2020-09-30 12:00] VITALS: BP 135/62
--- NOTE | 2020-09-30 14:32 | Consultation ---
History of Present Illness General Chief Complaint: Hypertension Referring physician: Dr. Araya Present Illness HPI 80-year-old Black male with PMHx HTN, CHF, chronic leg edema, admitted through the ER with elevated blood pressure. Pt states he takes his own BP frequently, and noted it was elevated to 170 systolic even though he took an extra antihypertensive, c/o sharp, stabbing retrosternal chest pain relieved wiht antacids at home. This occurred after a salty meal of ribs and tacos. EKG SR with RBBB and bradycardia with rate 58, troponin 0.2 x3, BNP 106, Cr 1.8. CXR negative for acute HF. Echocardiogram shows well preserved LV with normal systolic function and mild diastolic dysfunction with normal EF. Denies chest pain or orthopnea today. C/o swollen legs, which are not new but are worse than usual. Started recently on Lasix to help relieve leg swelling. Allergies: Coded Allergies: No Known Allergies (Verified , 01/09/19) Medication History Scheduled Amlodipine Besylate* (Amlodipine Besylate*), ORAL DAILY, (Reported) Aspirin* (Aspirin*), 81 MG ORAL DAILY Ferrous Sulfate* (Ferrous Sulfate*), 325 MG ORAL THREE TIMES A DAY, (Reported) Folic Acid* (Folic Acid*), 1 MG ORAL DAILY, (Reported) Latanoprost* (Xalatan*), 1 DRP OP BEDTIME, (Reported) Lisinopril (Lisinopril*), 20 MG ORAL DAILY, (Reported) Omeprazole (Omeprazole), 40 MG ORAL DAILY, (Reported) Simvastatin (Zocor), 20 MG ORAL BEDTIME, (Reported) Tamsulosin Hcl (Tamsulosin Hcl*), 0.4 MG ORAL BEDTIME, (Reported) Vitamin B Cmplx/Vit C/Folic AC (Nephro-Todd Tablet), 1 TAB ORAL DAILY, (Reported) Medications Narrative atorvastatin, lisinopril Patient History History Provided By: Patient Healthcare decision maker Resuscitation status Advanced Directive on File Review of Systems Constitutional: Reports: no symptoms Respiratory: Reports: shortness of breath Cardiovascular: Reports: edema Gastrointestinal: Reports: no symptoms All Other Systems: negative except mentioned in HPI Physical Exam General Appearance: no apparent distress HEENT: normocephalic, atraumatic, PERRL Neck: supple Respiratory/Chest: lungs clear, normal breath sounds Cardiovascular/Chest: no JVD, bradycardia Abdomen: soft Extremities: moderate edema, pitting Skin Exam: warm/dry Neurologic: area counselor II-XII grossly normal Last 24 Hour Vital Signs Date Time Temp Pulse Resp B/P (MAP) Pulse Ox O2 Delivery O2 Flow Rate FiO2 09/30/20 12:00 97.4 57 18 135/62 (86) 97 09/30/20 12:00 54 09/30/20 09:46 149/78 09/30/20 09:46 63 149/78 09/30/20 09:00 Room Air 09/30/20 08:00 55 09/30/20 08:00 97.0 63 18 149/78 (101) 97 09/30/20 04:00 97.7 52 17 112/67 (82) 97 09/30/20 04:00 48 09/30/20 00:00 96.7 54 19 152/75 (100) 97 09/30/20 00:00 80 09/29/20 23:35 152/75 09/29/20 22:50 98.6 56 18 136/72 100 Room Air 09/29/20 22:25 Room Air 09/29/20 21:40 97.9 56 18 130/74 100 Room Air 09/29/20 19:10 97.9 61 18 147/69 100 Room Air 09/29/20 18:37 97.9 66 18 130/66 100 Room Air 09/29/20 18:37 66 17 Room Air 09/29/20 17:43 97.9 66 20 154/74 (100) 100 Room Air Intake and Output 09/29/20 09/30/20 19:00 07:00 Intake Total 360 ml Balance 360 ml Intake Oral 360 ml # Voids 1 3 Laboratory Tests Test 09/29/20 18:00 09/30/20 00:50 09/30/20 09:11 White Blood Count 3.8 K/UL (4.8-10.8) L Red Blood Count 3.45 M/UL (4.70-6.10) L Hemoglobin 10.9 G/DL (14.2-18.0) L Hematocrit 35.9 % (42.0-52.0) L Mean Corpuscular Volume 104 FL (80-99) H Mean Corpuscular Hemoglobin 31.5 PG (27.0-31.0) H Mean Corpuscular Hemoglobin Concent 30.3 G/DL (32.0-36.0) L Red Cell Distribution Width 13.4 % (11.6-14.8) Platelet Count 174 K/UL (150-450) Mean Platelet Volume 6.4 FL (6.5-10.1) L Neutrophils (%) (Auto) 53.3 % (45.0-75.0) Lymphocytes (%) (Auto) 31.7 % (20.0-45.0) Monocytes (%) (Auto) 9.6 % (1.0-10.0) Eosinophils (%) (Auto) 3.0 % (0.0-3.0) Basophils (%) (Auto) 2.5 % (0.0-2.0) H Sodium Level 138 MMOL/L (136-145) Potassium Level 4.7 MMOL/L (3.5-5.1) Chloride Level 103 MMOL/L (98-107) Carbon Dioxide Level 31 MMOL/L (21-32) Anion Gap 4 mmol/L (5-15) L Blood Urea Nitrogen 11 mg/dL (7-18) Creatinine 1.8 MG/DL (0.55-1.30) H Estimat Glomerular Filtration Rate 44.1 mL/min (>60) Glucose Level 99 MG/DL (74-106) Calcium Level 8.8 MG/DL (8.5-10.1) Total Bilirubin 0.5 MG/DL (0.2-1.0) Aspartate Amino Transf (AST/SGOT) 43 U/L (15-37) H Alanine Aminotransferase (ALT/SGPT) 25 U/L (12-78) Alkaline Phosphatase 63 U/L (46-116) Troponin I 0.230 ng/mL (0.000-0.056) 0.233 ng/mL (0.000-0.056) 0.211 ng/mL (0.000-0.056) Pro-B-Type Natriuretic Peptide 106 pg/mL (0-125) Total Protein 6.9 G/DL (6.4-8.2) Albumin 3.6 G/DL (3.4-5.0) Globulin 3.3 g/dL Albumin/Globulin Ratio 1.1 (1.0-2.7) Microbiology Date/Time Source Procedure Growth Status 09/29/20 21:17 Nasopharynx SARS-CoV-2 RdRp Gene Assay - Final Complete Height (Feet): 6 Height (Inches): 3.00 Weight (Pounds): 258 Medications Current Medications Medications (Trade) Dose Ordered Sig/Jose Route PRN Reason Start Time Stop Time Status Last Admin Dose Admin Amlodipine Besylate (Norvasc) 10 mg DAILY ORAL 09/30/20 09:00 10/30/20 08:59 09/30/20 09:46 Aspirin (ASA) 81 mg DAILY ORAL 09/30/20 09:00 11/14/20 08:59 09/30/20 09:46 Atorvastatin Calcium (Lipitor) 10 mg BEDTIME ORAL 09/30/20 21:00 12/29/20 20:59 Clonidine HCl (Catapres Tab) 0.1 mg Q8H PRN ORAL SBP >150 09/29/20 23:00 12/28/20 22:59 09/29/20 23:35 Ferrous Sulfate (Feosol) 325 mg THREE TIMES A DAY ORAL 09/30/20 09:00 12/29/20 08:59 09/30/20 13:28 Folic Acid (Folate) 1 mg DAILY ORAL 09/30/20 09:00 10/30/20 08:59 09/30/20 09:46 Furosemide (Lasix) 40 mg DAILY IV 10/01/20 09:00 10/31/20 08:59 Heparin Sodium (Porcine) (Heparin 5000 units/ml) 5,000 units EVERY 12 HOURS SUBQ 09/30/20 09:00 11/14/20 08:59 09/30/20 11:10 Latanoprost (Xalatan) 1 drop BEDTIME BOTH EYES 09/30/20 21:00 10/30/20 20:59 Lisinopril (PriniviL) 20 mg DAILY ORAL 09/30/20 09:00 10/30/20 08:59 09/30/20 09:46 Pantoprazole (Protonix) 40 mg DAILY ORAL 09/30/20 09:00 10/30/20 08:59 09/30/20 09:46 Tamsulosin HCl (Flomax) 0.4 mg BEDTIME ORAL 09/30/20 21:00 10/30/20 20:59 Vitamin B Complex/ Vit C/Folic Acid (Nephrovite) 1 tab DAILY ORAL 09/30/20 09:00 10/30/20 08:59 09/30/20 09:46 Assessment/Plan Status: doing well Status Narrative Feeling better at time of exam than he did at admission. Denies CP, orthopnea, or SOB at rest. Assessment/Plan: 1. Hypertension and hypertensive urgency now under better control on multiple antihypertensives low salt diet 2. HFpEF, chronic diastolic HF with preserved EF 55%, compensated BNP not elevated CXR negative for acute HF 3. Troponin leak 0.2 x3 likely baseline, will recheck in the AM recent stress test negative per pt repeat EKG 4. LIBERTY on CKD Cr 1.8 decrease ACEi dose discontinue Lasix 5. Acute on chronic leg edema Venous US pending Leg elevation and ANYI hose 6. Sinus bradycardia avoid rate-lowering medications 7. RBBB 8. Anemia - chronic iron supplement ACS unlikely, will continue to monitor overnight. Not in acute heart failure, breathing easily on room air. Further recs to follow. Kimberly Santos PA-C Sep 30, 2020 14:32
[2020-09-30 16:00] VITALS: BP 140/80
--- NOTE | 2020-09-30 19:35 | NUR ---
HAND-OFF: Report given to Low.
--- NOTE | 2020-09-30 19:40 | NUR ---
NURSE NOTES: The patient is alert and oriented x4 and does not seem to be in any acute distress at this time. He is on room air with Resp even and unlabored.The patient is on bedrest.The is bilateral edema noted on the lower leg which was raised with a pillow as indicated.The patient has a Right AC 20g that is patent and asymptomatic.The bed in lowest level with call light within easy reach. will continue to monitor as indicated.
[2020-09-30 20:00] VITALS: BP 157/86
[2020-09-30] MEDS ORDERED: Latanoprost 0.005% Opth 2.5ml Soln BOTH EYES SCH (21:00)
[2020-09-30] MEDS ORDERED: Atorvastatin 20mg tab ORAL SCH (21:00)
[2020-09-30] MEDS ORDERED: Tamsulosin 0.4mg cap ORAL SCH (21:00)
[2020-09-30] MEDS: HydrALAZINE 50mg tab ORAL SCH (22:22)
[2020-10-01] VITALS: BP 138/80
[2020-10-01 04:00] VITALS: BP 132/68
--- NOTE | 2020-10-01 04:09 | NUR ---
NURSE NOTES: The patient is alert and stable and remained on room air and is able to ambulate to the bathroom. will continue to monitor as indicated
[2020-10-01] MEDS: HydrALAZINE 50mg tab ORAL SCH (06:12)
--- NOTE | 2020-10-01 07:03 | NUR ---
NURSE NOTES: NURSE HAND-OFF REPORT: Important Events on Shift:Alert oriented x4 and cooperative with his care. He slept for 8 hrs last night and can ambulate to the bathroom. Patient Status: Diet: Pending Orders: Pending Results/Labs: Pending MD notification: Latest Vital Signs: Temperature 98.1 , Pulse 60 , B/P 132 /68 , Respiratory Rate 17 , O2 SAT 97 , Room Air, O2 Flow Rate . Vital Sign Comment: EKG Rhythm: SB with BBB Rhythm change?: N MD Notified?: - MD Response: Latest Norton Fall Score: 20 Fall Risk: Low Risk Safety Measures: Call light Within Reach, Bed Alarm Zone 1, Side Rails Side Rails x3, Bed position Low and Locked. Fall Precautions: Yellow Socks Yellow Gown Patient Fall Education Report given to .
[2020-10-01 07:49] LABS: BASOPHILS % (AUTO) 2.2 % (0.0-2.0); EOSINOPHILS % (AUTO) 2.5 % (0.0-3.0); HEMATOCRIT 37.6 % (42.0-52.0); HEMOGLOBIN 11.5 G/DL (14.2-18.0); LYMPHOCYTES % (AUTO) 36.5 % (20.0-45.0); MEAN CORPUSCULAR VOLUME 104 FL (80-99); MONOCYTES % (AUTO) 10.1 % (1.0-10.0); NEUTROPHILS % (AUTO) 48.8 % (45.0-75.0); PLATELET COUNT 191 K/UL (150-450); RED BLOOD COUNT 3.61 M/UL (4.70-6.10); RED CELL DISTRIBUTION WIDTH 13.4 % (11.6-14.8); WHITE BLOOD COUNT 3.7 K/UL (4.8-10.8)
--- NOTE | 2020-10-01 07:54 | NUR ---
NURSE NOTES: pt is awake in bed; getting ready to eat breakfast. pt on room air. no difficulty breathing noted. pt denies any pain and discomfort. no acute distress noted at this time. call light within reach.
[2020-10-01 08:00] VITALS: BP 130/68
[2020-10-01 08:08] LABS: ALBUMIN 3.5 G/DL (3.4-5.0); BILIRUBIN,TOTAL 0.7 MG/DL (0.2-1.0); CALCIUM 8.4 MG/DL (8.5-10.1); CREATININE 1.8 MG/DL (0.55-1.30); POTASSIUM 4.8 MMOL/L (3.5-5.1)
[2020-10-01] MEDS: Aspirin Baby 81mg ORAL SCH (08:57)
[2020-10-01] MEDS: Nephrovite tab (Rena-Vite) ORAL SCH (08:59)
[2020-10-01] MEDS ORDERED: Lisinopril 2.5mg tab ORAL SCH (09:00)
[2020-10-01] MEDS: Heparin 5000 units/ml inj SUBQ SCH (09:03)
[2020-10-01] MEDS ORDERED: ZESTRIL2.5 MG ORAL (09:04)
[2020-10-01] MEDS ORDERED: APRESOLINE50 MG ORAL (09:04)
--- NOTE | 2020-10-01 09:05 | Discharge Instructions ---
Discharge Instructions Discharge Instructions Follow up with: swimming instructor within 1 week Call MD/Return to Hospital if: BP is uncontrolled with new regimen For Congestive Heart Failure Reminder Report to your physician any weight gain of 5 pounds or more in one week. Ralf Heller Oct 01, 2020 09:05
--- NOTE | 2020-10-01 09:10 | Pulmonology Progress Note ---
Subjective ROS Limited/Unobtainable: No Interval Events: troponins stable Constitutional: Reports: no symptoms HEENT: Repors: no symptoms Respiratory: Reports: no symptoms Cardiovascular: Reports: no symptoms Gastrointestinal/Abdominal: Reports: no symptoms Allergies: Coded Allergies: No Known Allergies (Verified , 01/09/19) Objective Last 24 Hour Vital Signs Date Time Temp Pulse Resp B/P (MAP) Pulse Ox O2 Delivery O2 Flow Rate FiO2 10/01/20 09:00 130/68 10/01/20 08:00 98.1 60 18 130/68 (88) 99 10/01/20 06:12 132/68 10/01/20 04:00 98.1 60 17 132/68 (89) 97 10/01/20 04:00 54 10/01/20 00:00 55 10/01/20 00:00 97.6 62 19 138/80 (99) 97 09/30/20 22:22 144/82 09/30/20 21:00 Room Air 09/30/20 20:00 97.8 61 18 157/86 (109) 99 09/30/20 20:00 57 09/30/20 16:00 56 09/30/20 16:00 98.1 56 18 140/80 (100) 98 09/30/20 12:00 97.4 57 18 135/62 (86) 97 09/30/20 12:00 54 09/30/20 09:46 149/78 09/30/20 09:46 63 149/78 Intake and Output 09/30/20 10/01/20 19:00 07:00 Intake Total 425 ml 650 ml Balance 425 ml 650 ml Intake Oral 425 ml 650 ml # Voids 2 2 General Appearance: no acute distress HEENT: atraumatic Respiratory: lungs clear Cardiovascular: normal rate, regular rhythm Abdomen: soft, non tender Microbiology Date/Time Source Procedure Growth Status 09/29/20 21:17 Nasopharynx SARS-CoV-2 RdRp Gene Assay - Final Complete Laboratory Tests 09/30/20 09:11: Troponin I 0.211H 09/30/20 16:47: Troponin I 0.210H 10/01/20 06:20: White Blood Count 3.7L, Red Blood Count 3.61L, Hemoglobin 11.5L, Hematocrit 37.6L, Mean Corpuscular Volume 104H, Mean Corpuscular Hemoglobin 32.0H, Mean Corpuscular Hemoglobin Concent 30.7L, Red Cell Distribution Width 13.4, Platelet Count 191, Mean Platelet Volume 7.4, Neutrophils (%) (Auto) 48.8, Lymphocytes (%) (Auto) 36.5, Monocytes (%) (Auto) 10.1H, Eosinophils (%) (Auto) 2.5, Basophils (%) (Auto) 2.2H, Sodium Level 136, Potassium Level 4.8, Chloride Level 101, Carbon Dioxide Level 31, Anion Gap 4L, Blood Urea Nitrogen 16, Creatinine 1.8H, Estimat Glomerular Filtration Rate 44.1, Glucose Level 91, Calcium Level 8.4L, Total Bilirubin 0.7, Aspartate Amino Transf (AST/SGOT) 37, Alanine Aminotransferase (ALT/SGPT) 23, Alkaline Phosphatase 63, Total Protein 7.1, Albumin 3.5, Globulin 3.6, Albumin/Globulin Ratio 1.0 Current Medications Medications (Trade) Dose Ordered Sig/Jose Route PRN Reason Start Time Stop Time Status Last Admin Dose Admin Aspirin (ASA) 81 mg DAILY ORAL 09/30/20 09:00 11/14/20 08:59 10/01/20 08:57 Atorvastatin Calcium (Lipitor) 10 mg BEDTIME ORAL 09/30/20 21:00 12/29/20 20:59 09/30/20 21:03 Clonidine HCl (Catapres Tab) 0.1 mg Q8H PRN ORAL SBP >150 09/29/20 23:00 12/28/20 22:59 09/29/20 23:35 Famotidine (Pepcid) 20 mg DAILY ORAL 10/01/20 09:00 12/30/20 08:59 10/01/20 08:59 Ferrous Sulfate (Feosol) 325 mg THREE TIMES A DAY ORAL 09/30/20 09:00 12/29/20 08:59 10/01/20 08:58 Folic Acid (Folate) 1 mg DAILY ORAL 09/30/20 09:00 10/30/20 08:59 10/01/20 08:58 Heparin Sodium (Porcine) (Heparin 5000 units/ml) 5,000 units EVERY 12 HOURS SUBQ 09/30/20 09:00 11/14/20 08:59 10/01/20 09:03 Hydralazine HCl (Apresoline) 50 mg Q8HR ORAL 09/30/20 22:00 12/29/20 21:59 10/01/20 06:12 Latanoprost (Xalatan) 1 drop BEDTIME BOTH EYES 09/30/20 21:00 10/30/20 20:59 09/30/20 21:03 Lisinopril (ZestriL) 5 mg DAILY ORAL 10/01/20 09:00 10/30/20 08:59 10/01/20 09:00 Pantoprazole (Protonix) 40 mg DAILY ORAL 09/30/20 09:00 10/30/20 08:59 10/01/20 08:59 Tamsulosin HCl (Flomax) 0.4 mg BEDTIME ORAL 09/30/20 21:00 10/30/20 20:59 09/30/20 21:03 Vitamin B Complex/ Vit C/Folic Acid (Nephrovite) 1 tab DAILY ORAL 09/30/20 09:00 10/30/20 08:59 10/01/20 08:59 Assessment/Plan Assessment/Plan 1. Hypertension - seen by director of convention services; new medication regimen 2. Elevated troponin - serial troponin stable at 0.2 over 24 hours; likely baseline 3. Hx of anemia - continue vitamin B and folic acid 4. DVT ppx - on heparin 5. B/l 1+ pitting edema - Lasix dc'd due to elevated creatinine - 2D echo shows EF normal - seen by director of convention services Given stable vital signs, labs, pt is medically stable for discharge on new medical therapy Pt to follow up with director of convention services within 1 week Return to hospital if BP uncontrolled or new worsening symptoms occur Plan discussed with patient and nurse The care for this patient was discussed with my supervising physician. Time spent for this case was approximately 31 minutes. Ralf Heller Oct 01, 2020 09:10
--- NOTE | 2020-10-01 10:12 | Diagnostic Imaging Report ---
EXAM: US Duplex Bilateral Lower Extremities Veins CLINICAL HISTORY: DVT TECHNIQUE: Real-time duplex ultrasound scan of the bilateral lower extremity veins integrating B-mode two-dimensional vascular structure, Doppler spectral analysis, color flow Doppler imaging and compression. COMPARISON: No relevant prior studies available. FINDINGS: Right deep veins: Unremarkable. No DVT in the right common femoral, femoral, proximal deep femoral or popliteal veins. The veins demonstrate normal color flow, are normally compressible, with normal phasic flow and/or augmentation response. Left deep veins: Unremarkable. No DVT in the left common femoral, femoral, proximal deep femoral or popliteal veins. The veins demonstrate normal color flow, are normally compressible, with normal phasic flow and/or augmentation response. Soft tissues: No popliteal cyst. IMPRESSION: No evidence of DVT in the visualized venous segments of bilateral lower extremities.
[2020-10-01 12:00] VITALS: BP 137/73
--- NOTE | 2020-10-01 14:04 | NUR ---
NURSE NOTES: Patient is discharged home without any signs of distress. Patient is alert and awake. A&O X 4. verbally responsive. Respiration is even and unlabored on room air. Denies any chest pain at this time. No coughing and fever noted. Patient has belongings; inventory paper signed. Patient did not bring home medications. Skin is clean and intact. Patient is provided with discharge teaching, medication teaching and instructions. patient verbalized understanding of instructions. IV site and ID band removed. Patient is escorted to the lobby and exited the hospital in company of his nephew; left via a private vehicle.
--- NOTE | 2020-10-02 16:25 | Discharge Summary ---
Discharge Summary Discharge Summary _ Date of admission: 09/29/2020 Date of discharge: 10/01/[address] Araya History of Present Illness and Brief Hospital Course Mr. Reis is an 80-year-old male with past medical history of anemia, and hypertension, who presented to the ED for evaluation of elevated blood pressure taken at home. Patient reported having a BP monitor at home and checking his blood pressure frequently. He reported his systolic blood pressure being in the 130s on average. However, he found his systolic blood pressure in the 170s on the day of admission. He denied chest pain, shortness of breath, lightheadedness, palpitations, or any other symptoms at the time. Patient reported having especially salty meal comprised of tacos and ribs prior to checking his blood pressure. He reported being compliant with his home medications. He also reported 2 weeks history of lower extremity bilateral pitting edema. He reported he sees his floor layer tile Dr. Bolivar regularly. The initial EKG showed sinus rhythm with incomplete right bundle branch block pattern consistent with prior EKG. No acute ischemic changes were noted. Initial laboratory studies were remarkable for elevated troponin. He was given aspirin in the ER and was admitted to the hospital for ACS rule out. Chest x- ray showed no acute disease and was clear from consolidation, effusion, and pneumothorax. Elevation of the left hemidiaphragm was noted, however. Patient tested negative for COVID-19 with rapid gene assay in the ER. His hypertensive urgency was better controlled with multiple antihypertensives. Low-salt diet was recommended to him. Given his recent onset of bilateral lower extremity pitting edema, patient was evaluated with 2D echocardiogram which estimated his left ventricular ejection fraction to be 55%. BNP was not elevated and his chest x-ray was negative for acute heart failure. Patient was recommended to elevate his legs at night. Lasix was discontinued given his elevated creatinine level. Venous duplex ultrasound of lower extremity was ordered however remained incomplete until discharge. His troponin was elevated on arrival which was closely monitored. However, no elevation of troponin was observed. Patient reported that his recent stress test with his floor layer tile was negative. Given his elevated creatinine of 1.8, the dose of lisinopril was decreased and instead hydralazine was added for better blood pressure control. Patient also reported history of chronic anemia. Patient was counseled to continue ferrous sulfate, folic acid, and vitamin B complex. After close observation, his troponin remained stable at 0.2 for 24 hours, which was likely his baseline. From admission to discharge, patient remained asymptomatic. Given stable vital signs, and lab findings, patient was medically stable for discharge on new medical therapy. Patient is to follow-up with his floor layer tile within 1 week. Patient was instructed to return to hospital if BP was uncontrolled or new worsening symptoms occur. Patient was discharged home without any signs of distress on 10/01/2020. Consultants: Cardiology SHYANN Barry Discharge Condition Stable Final diagnoses Hypertension Hypertensive urgency Troponin leak History of anemia Leg edema Heart failure with preserved ejection fraction LIBERTY on CKD Sinus bradycardia Right bundle branch block Anemia, chronic I have been assigned to dictate discharge summary for this account. Ralf Heller Oct 02, 2020 16:25
== END 2020-10-01 14:07 | disposition home or self-care (01) | DRG 305 ==
LOC: EMR 18:00 → 2E 19:26 → EDBEDREQ 21:18
DX: I16.0 Hypertensive urgency (principal); N17.9 Acute kidney failure, unspecified; I50.32 Chronic diastolic (congestive) heart failure; I13.0 Hypertensive heart and chronic kidney disease with heart failure and stage 1 through stage 4 chronic kidney disease, or unspecified chronic kidney disease; N18.9 Chronic kidney disease, unspecified; D64.9 Anemia, unspecified; Z79.82 Long term (current) use of aspirin; I45.10 Unspecified right bundle-branch block; Z91.11 Patient's noncompliance with dietary regimen
CPT/HCPCS: 36415; 71045; 80053; 83880; 84484; 85025; 93005; 93306; 93970; 99285; U0002

== ENCOUNTER 2020-10-19 09:57 | Emergency (ER) | payer MEDICARE ==
[~2020-10-19] VITALS: Ht 188 cm; Wt 113.4 kg
[~2020-10-19 09:57] MED LIST changes: +APRESOLINE50 MG ORAL; +ZESTRIL2.5 MG ORAL
--- NOTE | 2020-10-19 10:30 | NUR ---
ED Nurse Note:pt. came from home with c/o cough and general weakness, he was in contact with covid positive person, no SOB or fever on arrival
--- NOTE | 2020-10-19 11:35 | NUR ---
ED Nurse Note: Pt cleared by health care Provider for discharge. DC instructions was given and explained to pt and verbalized understanding of teachings. All medical deviecs such as ID band removed. Pt is AAO x4, ambulatory and left with all personal belongings.
[2020-10-19 11:42] VITALS: BP 140/61
[2020-10-19 11:43] VITALS: BP 140/61
--- NOTE | 2020-10-19 11:51 | Emergency Room Report ---
History of Present Illness General Chief Complaint: Upper Respiratory Illness Source: Patient Present Illness HPI Disclaimer: Please note that this report is being documented using [employer] technology. This can lead to erroneous entry secondary to incorrect interpretation by the dictating instrument. HPI: 80-year-old male history of hypertension presents secondary to an exposure to COVID-19. His only complaint was mild decreased appetite. He denied any nausea, vomiting, diarrhea fever or shortness of breath. No pain. Denies any other complaints at this time. Allergies: Coded Allergies: No Known Allergies (Verified , 01/09/19) COVID-19 Screening Contact w/high risk pt: No Experienced COVID-19 symptoms?: No COVID-19 Testing performed BUSINESS OBJECTS: No Patient History Reviewed Nursing Documentation: PMH: Agreed; PSxH: Agreed Nursing Documentation-PMH Past Medical History: No History, Except For Hx Cardiac Problems: Yes - anemic Hx Hypertension: Yes Hx Pacemaker: No Hx Asthma: No Hx COPD: No Hx Diabetes: No Hx Cancer: No Hx Gastrointestinal Problems: No Hx Dialysis: No Hx Neurological Problems: No Hx Cerebrovascular Accident: No Hx Seizures: No Review of Systems All Other Systems: negative except mentioned in HPI Physical Exam Vital Signs Date Time Temp Pulse Resp B/P (MAP) Pulse Ox O2 Delivery O2 Flow Rate FiO2 10/19/20 10:09 98.2 83 20 142/58 (86) 98 Room Air 10/19/20 10:29 98 Sp02 EP Interpretation: reviewed, normal General Appearance: well appearing, no apparent distress Head: normocephalic, atraumatic Eyes: bilateral eye PERRL, bilateral eye EOMI ENT: hearing grossly normal, moist mucus membranes Neck: full range of motion, supple Respiratory: lungs clear, normal breath sounds, no rhonchi, no respiratory distress, no retraction, no wheezing Cardiovascular #1: normal peripheral pulses, regular rate, rhythm, no murmur Gastrointestinal: non tender, soft, non-distended, no guarding Neurologic: alert, oriented x3, no focal defects Skin: normal color, warm/dry Medical Decision Making Diagnostic Impression: Primary Impression: Viral respiratory illness ER Course Patient presented to the ER due to exposure to someone with COVID-19. He was in no acute distress. His main complaint was decreased appetite. On my exam he had no acute findings. Chest x-ray completed showed no significant abnormalities. At this time I believe patient stable for discharge. I did r ecommend home quarantine. Tylenol as needed for pain or fever. P.o. hydration. No indication for admission at this time. Chest X-Ray Diagnostic Results Chest X-Ray Diagnostic Results : Chest X-Ray Ordered: Yes # of Views/Limited/Complete: 1 View Indication: Other - Exposure to Covid Interpretation: no consolidation, no effusion, no pneumothorax Impression: No acute disease Electronically Signed by: Maciej Arellano MD Last Vital Signs Date Time Temp Pulse Resp B/P (MAP) Pulse Ox O2 Delivery O2 Flow Rate FiO2 10/19/20 11:43 98.2 82 18 140/61 98 Room Air 98 Disposition: HOME, SELF-CARE Condition: Stable Patient Instructions: Viral Respiratory Infection, [id number] Additional Instructions: We are treating you for presumed covid-19. Please stay at home until you have not had a fever for 24 hours without the use of antifever medications, other symptoms have improved, and 10 days have passed since the onset of your initial symptoms. Please do not leave your home during this time except to seek urgent medical care. All of your close contacts should be quarantined at home at least 14 days since last contact with yourself. Please visit the following website to arrange outpatient COVID-19 testing through [facility] for free [email or web address] You may sign up for a vaccine at the following website [email or web address] Maciej Arellano M.D. Oct 19, 2020 11:51
--- NOTE | 2020-10-19 12:57 | Diagnostic Imaging Report ---
Procedure: XRAY Chest 1v Reason for study: Reason For Exam: SOB Comparison films: 09/29/2020. FINDINGS: Elevated left hemidiaphragm unchanged. Vascularity is normal. The lung macario are clear bilaterally. Cardiac and mediastinal silhouette are within normal limits. CP angles are sharp. The bony thorax appear unremarkable. IMPRESSION: NO ACUTE CARDIOPULMONARY DISEASE.
== END 2020-10-19 11:35 | disposition home or self-care (01) ==
LOC: EMR 10:12
DX: B34.9 Viral infection, unspecified (principal); I11.9 Hypertensive heart disease without heart failure; R63.0 Anorexia; Z68.32 Body mass index [BMI] 32.0-32.9, adult; Z20.822 Contact with and (suspected) exposure to COVID-19
CPT/HCPCS: 71045; 99283

== ENCOUNTER 2020-11-27 15:35 | Emergency (ER) | payer MEDICARE ==
[~2020-11-27] VITALS: Ht 188 cm; Wt 111.1 kg
--- NOTE | 2020-11-27 16:08 | NUR ---
pt arrived for HTN. pt hx htn & cholesterol. pt taking lisinopril, took at 1400 5mg. pt states he was at the dentist for a procedure with multiple high readings, so sent here for eval. pt denies pain, denies medication allergies. pt denies cough/fever/sob. pt negative covid test 11/15/20. pt denies headache, vision changes, chest pain. pt masked.
[2020-11-27] MEDS ORDERED: LISINOPRIL5 MG ORAL (16:22)
[2020-11-27 16:27] VITALS: BP 159/75
--- NOTE | 2020-11-27 16:30 | Emergency Room Report ---
History of Present Illness General Chief Complaint: Hypertension Present Illness HPI Patient is an 80-year-old male who was sent in by dentist due to elevated blood pressure facility. Patient a prior history of hypertension. He had been taking lisinopril 5 mg. Patient denies any headache change in vision, chest discomfort shortness of breath or any other current complaints. Has been taking antibiotics due to dental infection. Patient presented after having elevated blood pressure reading at home. 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 COVID-19 Screening: Negative COVID-19 COVID-19 Testing Source: 11/15/20 Patient History Past Medical History: see triage record Reviewed Nursing Documentation: PMH: Agreed; PSxH: Agreed Nursing Documentation-PMH Hx Cardiac Problems: Yes - anemic Hx Hypertension: Yes Hx Pacemaker: No Hx Asthma: No Hx COPD: No Hx Diabetes: No Hx Cancer: No Hx Gastrointestinal Problems: No Hx Dialysis: No Hx Neurological Problems: No Hx Cerebrovascular Accident: No Hx Seizures: No Review of Systems All Other Systems: negative except mentioned in HPI Physical Exam Vital Signs Date Time Temp Pulse Resp B/P (MAP) Pulse Ox O2 Delivery O2 Flow Rate FiO2 11/27/20 16:01 99.0 80 18 171/86 (114) 98 Room Air General Appearance: well appearing, no apparent distress, alert, GCS 15 Head: normocephalic, atraumatic ENT: hearing grossly normal, normal voice Neck: full range of motion, supple Respiratory: normal inspection, lungs clear, no respiratory distress, speaking full sentences Cardiovascular #1: normal inspection, normal peripheral pulses, regular rate, rhythm Gastrointestinal: normal inspection, non tender, soft Musculoskeletal: normal inspection, no calf tenderness Neurologic: alert, motor strength/tone normal, 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 Differential diagnosis include was not limited to hypertensive crisis, benign hypertension, anxiety, among others. Patient has a benign exam and does not appear to require any imaging or laboratory testing at this time. Patient is currently asymptomatic with hypertension. His blood pressure has improved spontaneously. Patient had adequate blood pressure control. He was given a refill of his blood pressure medications and was advised to follow-up with his primary care physician Dr. Ramirez for recheck of his blood pressure and possible medication adjustment. He was advised that he may need to take additional dose of the lisinopril to control his blood pressure if he had additional high readings. He was advised to return if he had any new concerns. This medical record is generated with [employer] wedding photographer software. There may be some wedding photographer discrepancies related to use of this software Last Vital Signs Date Time Temp Pulse Resp B/P (MAP) Pulse Ox O2 Delivery O2 Flow Rate FiO2 11/27/20 16:07 80 18 Room Air 11/27/20 16:01 99.0 171/86 (114) 98 Status: improved Disposition: HOME, SELF-CARE Condition: Stable Scripts Lisinopril (LISINOPRIL*) 5 Mg Tablet 5 MG ORAL DAILY for Hypertension, #30 TAB Prov: Garret Martínez MD 11/27/20 Referrals: Bill Ramirez MD (PCP) Patient Instructions: Hypertension, [id number] Garret Martínez MD Nov 27, 2020 16:30
== END 2020-11-27 16:28 | disposition home or self-care (01) ==
LOC: EMR 16:15
DX: I10 Essential (primary) hypertension (principal); Z79.899 Other long term (current) drug therapy
CPT/HCPCS: 99282